=== PATIENT | female | born 1990 | race Caucasian/White ===

== ENCOUNTER 2017-12-26 08:12 | Emergency (ER) | payer MEDICAID, SELFPAY ==
[2017-12-26 08:13] VITALS: BP 177/130; PULSE 91; RESP 22; TEMP 36.7; O2SAT 98; BMI 61.2
--- NOTE | 2017-12-26 08:28 | CT_ITS ---
STUDY: CT ABDOMEN AND PELVIS WITH CONTRAST REASON FOR EXAM: Female, 27 years old. 2 week history of left sided abdominal pain. The patient has a history of celiac disease. RADIATION DOSAGE (If Supplied By Facility): CTDIvol = ( 58.67 ) mGy, DLP = ( 2090.23 ) mGycm TECHNIQUE: Transaxial images were obtained from the dome of the diaphragm to the symphysis pubis with oral contrast. 100mL ml of Isovue 300 contrast was administered. Sagittal and coronal images were reconstructed. Individualized dose optimization techniques were used for this CT. COMPARISON: Comparison is made with a prior study dated November 06, 2017. FINDINGS: The visualized lung bases are unremarkable. The visualized portions of the heart are within normal limits. There is decreased attenuation of the liver consistent with steatosis. Mild hepatomegaly. Stable coarse calcifications in the midportion of the right lobe of the liver suggestive of a granulomatous calcification. Normal gallbladder and extrahepatic biliary system. Normal spleen. Normal pancreas. Normal bilateral adrenal glands. Normal right kidney. Normal left kidney. Normal visualized stomach. Normal small intestine. There are scattered colonic diverticula consistent with diverticulosis. The appendix is visualized and appears normal. Normal abdominal aorta. Normal inferior vena cava. Normal retroperitoneum. Normal urinary bladder. Normal abdominal wall. There is loss of the normal lumbar lordosis. CT/Abdomen/Pelvis WITH Contrast IMPRESSION: Hepatomegaly and fatty infiltration of the liver. Stable calcification in the right lobe of the liver. Electronically Signed: Bj Arroyo MD at 10:56 EST Tel [phone], Service support ,
--- NOTE | 2017-12-26 08:30 | ED.VISSUMM ---
- ER Visit Summary Date of Service: 12/26/17 Chief Complaint: Abdominal pain History of Present Illness: The patient is a 27 F presenting with abdominal pain. She states that she has been having left upper quadrant pain ever since having stomach flu. She now denies any nausea vomiting diarrhea or constipation. She has mild dysuria. She states yesterday she was at the store and bent over and started having pain in the suprapubic region. She denies any vaginal bleeding or discharge. Denies possibility of . She has history of celiac disease. Physical Examination: Vitals are stable. Patient is afebrile. Alert no acute distress. HEENT exam is unremarkable. Neck is supple. Lungs are clear and equal bilaterally. Heart is regular rate and rhythm. Abdomen is soft obese, left upper quadrant tenderness, suprapubic tenderness, no rebound or guarding. Extremities are unremarkable. Skin is warm and dry. No focal neurologic deficit. Remainder of exam is unremarkable. Emergency Department Course and Treatment: She is given IV fluids, Toradol. CBC shows white count 12.4. Chemistries show glucose 121. Liver enzymes are normal except for alk phos 121. Lipase is normal. Urinalysis unremarkable. HCG negative. CT abdomen pelvis shows fatty liver, stable calcification in the liver. She is resting comfortably on re-evaluation. Patient is advised to follow-up with Dr. Parker reception for no doc. Advised return to ED for any worsening complaints. Disposition: Discharge home Impression: Abdominal pain This note was generated with [employer] dictation software. It may contain incorrect words, spelling, and punctuation that were not noted in review of the chart prior to signing ED Disposition - Plan for ED Patient: Chief Complaint: Abd Pain Referrals: Care Physician,No Primary [Primary Care Provider] -
--- NOTE | 2017-12-26 08:33 | ED.DCSUM_ITS ---
- ER Visit Summary Date of Service: 12/26/17 Chief Complaint: Abdominal pain History of Present Illness: The patient is a 27 F presenting with abdominal pain. She states that she has been having left upper quadrant pain ever since having stomach flu. She now denies any nausea vomiting diarrhea or constipation. She has mild dysuria. She states yesterday she was at the store and bent over and started having pain in the suprapubic region. She denies any vaginal bleeding or discharge. Denies possibility of . She has history of celiac disease. Physical Examination: Vitals are stable. Patient is afebrile. Alert no acute distress. HEENT exam is unremarkable. Neck is supple. Lungs are clear and equal bilaterally. Heart is regular rate and rhythm. Abdomen is soft obese, left upper quadrant tenderness, suprapubic tenderness, no rebound or guarding. Extremities are unremarkable. Skin is warm and dry. No focal neurologic deficit. Remainder of exam is unremarkable. Emergency Department Course and Treatment: She is given IV fluids, Toradol. CBC shows white count 12.4. Chemistries show glucose 121. Liver enzymes are normal except for alk phos 121. Lipase is normal. Urinalysis unremarkable. HCG negative. CT abdomen pelvis shows fatty liver, stable calcification in the liver. She is resting comfortably on re-evaluation. Patient is advised to follow-up with Dr. Parker mooner for no doc. Advised return to ED for any worsening complaints. Disposition: Discharge home Impression: Abdominal pain This note was generated with [employer] dictation software. It may contain incorrect words, spelling, and punctuation that were not noted in review of the chart prior to signing ED Disposition - Plan for ED Patient: Chief Complaint: Abd Pain Referrals: Care Physician,No Primary [Primary Care Provider] -
[2017-12-26] MEDS: 0.9% Normal Saline 1,000 ML 1000 ML IV (08:57)
[2017-12-26] MEDS: Ketorolac 30 MG/ML Syringe IV (08:58)
[2017-12-26 09:08] LABS: Absolute Lymphocyte Count 2.15 X10^3/ul (0.83-4.51); Absolute Neutrophil Count 9.2 X10^3/uL (2.0-7.7); Basophil# 0.02 X10^3/uL; Basophil% 0.2 % (0-1); Eosinophil# 0.31 X10^3/uL; Eosinophils% 2.5 % (0-5); Hematocrit 40.3 % (37-47); Lymphocyte # 2.15 X10^3/ul (4.0); Lymphocyte % 17.3 % (19-41); Mean Corp Hgb Conc 32.3 g/gl (32-36); Mean Corpuscular Hgb 25.7 pg (27.0-32.0); Mean Corpuscular Volume 79.6 fL (81-99); Mean Platelet Vol. 10.3 fl (6.2-12.0); Monocyte# 0.71 X10^3/uL; Monocyte% 5.7 % (0-10); Neutrophil # 9.21 X10^3/uL (2.7-7.7); Platelet Count 353 K/mm3 (150-450); RBC Distribution Width CV 15.6 % (11.6-14.6); RBC Distribution Width SD 44.5 fl (35.1-43.9); Red Blood Count 5.06 M/mm3 (4.2-5.4); White Blood Count 12.4 K/mm3 (4.4-11.0)
[2017-12-26 09:13] LABS: ALB/GLOB Ratio 0.7 RATIO (0.9-2.4); AST(SGOT) 9 U/L (15-37); Alanine Aminotransfer ALT/SGPT 20 U/L (13-56); Albumin, Serum 3.2 g/dL (3.2-5.0); Alkaline Phosphatase 121 U/L (45-117); Anion Gap 7 (5-15); BUN 12 mg/dL (7-18); BUN/Creat Ratio 17.1 RATIO (10-20); Calcium,Total 8.8 mg/dL (8.5-10.1); Chloride 106 mmol/L (98-107); EST Glomerular Filtration Rate 107 mL/min (>60); Est Glom Filt Rate - Afr Amer 130 mL/min (>60); Globulin 4.4 g/dL (2.2-4.2); Glucose 121 mg/dL (74-106); Lipase 73 U/L (73-393); Potassium 4.1 mmol/L (3.5-5.1); Protein, Total 7.6 g/dL (6.4-8.2); Sodium Level 140 mmol/L (136-145)
[2017-12-26 09:18] LABS: POSITIVE COUNT NO; POSITIVE DIFFERENTIAL NO; POSITIVE MORPHOLOGY NO
[2017-12-26 09:20] LABS: Pregnancy, Serum, hCG Quali. NEGATIVE Negative (0-9 Nonpreg)
[2017-12-26 10:07] LABS: Mucous, Urine 0 SEEN /hpf (<or=2+); Red Blood Cells-Urine 0 SEEN /hpf (0-5)
[2017-12-26 10:23] LABS: Color, Urine Yellow (Yellow); Glucose, Dipstick Normal (Normal); Ketone-Dipstick Negative (Negative); Leukocyte Esterase-Dipstick 100 /ul (Negative); Nitrite-Dipstick Negative (Negative); Occult Blood-Urine Negative /ul (Negative); Protein-Dipstick Negative (Negative); Urine Bilirubin Dipstick Negative (Negative); Urine Clarity Clear (Clear); Urine Urobilinogen Normal (Normal)
[2017-12-26 10:43] LABS: Bacteria RARE /hpf (None Seen); Squamous Epithelial Cells - UA 0-5 SEEN /hpf (5-10); White Blood Cells 0-5 SEEN /hpf (0-5)
[2017-12-26 11:08] VITALS: BP 147/111
--- NOTE | 2017-12-26 11:35 | ED.DEP ---
ED Disposition - Plan for ED Patient: Chief Complaint: Abd Pain Instructions: ED Abdominal Pain Unkn Cause Prescriptions: Naproxen [Naprosyn] 500 mg PO BID PRN #20 tablet Referrals: Care Physician,No Primary [Primary Care Provider] - Carey Parker DO [STAFF PHYSICIAN] -
[2017-12-26 11:58] VITALS: BP 158/107; PULSE 83; RESP 16; O2SAT 98
== END 2017-12-26 12:04 | disposition home or self-care (01) ==
PROVIDERS: Emergency Provider Emergency Medicine
DX: R10.12 Left upper quadrant pain (principal); R30.0 Dysuria; I10 Essential (primary) hypertension; K90.0 Celiac disease; K76.0 Fatty (change of) liver, not elsewhere classified; J45.909 Unspecified asthma, uncomplicated; Z79.899 Other long term (current) drug therapy
CPT/HCPCS: 74177; 80053; 81001; 83690; 84703; 85025; 96361; 96374; 99283; J7030; Q9967; A4216

== ENCOUNTER 2018-01-16 06:30 | Emergency (ER) | payer SELFPAY ==
[2018-01-16 06:33] VITALS: BP 165/123; PULSE 105; RESP 18; TEMP 36.8; O2SAT 97; BMI 62.8
--- NOTE | 2018-01-16 06:45 | ED.VISSUMM ---
- ER Visit Summary Date of Service: 01/16/18 Chief Complaint: Atraumatic right flank pain History of Present Illness: The patient is a 27 F complaint of atraumatic right flank pain. She states this is been going on since Tuesday. Worse with movement. She denies any hematuria or dysuria. Denies any fever. Denies any change with food. She denies any nausea, vomiting, diarrhea or constipation. The pain increases with movement about her trunk. She had a recent ER visit 3-4 weeks ago in which she had normal labs and a CT of the abdomen which showed a stable chronic right liver lobe calcification but no other acute processes. No gallbladder disease or gallstones. Labs are otherwise unremarkable and UA was unremarkable. Physical Examination: Vital signs are stable and afebrile except her initial blood pressure is 165/123 that will be reevaluated. She does not look septic or toxic. She is in no acute distress. She is resting in bed comfortably. HEENT exam unremarkable atraumatic. Neck nontender no lymphadenopathy. Lungs clear to auscultation bilaterally. Heart regular rhythm no murmur. Abdomen is morbidly obese but soft. Nontender nondistended no giving or masses normal bowel sounds no peritoneal signs. She is moving all 4 extremities. Neurovascular intact. Calves are nontender without edema or cords. Back exam the spine is nontender she is reproducible tenderness in the right posterior lower ribs and also in the right anterior lower ribs. There is no ecchymosis or bruising. There is no subcu air or crepitance. There is no gross bony deformities. Neurologic exam is normal. No focal motor deficits. She is awake alert answering questions. Test Results: Shows some blood but otherwise unremarkable. No signs of infection. Her history and exam is not consistent with a kidney stone. She did have a recent CT abdomen study did not show any signs of kidney stones. Emergency Department Course and Treatment: Patient was reproducible lower rib cage pain. She has no other symptoms. She had a recent CT and labs that were negative on 12/26/2017. At that time she had a negative CBC, BMP and some liver enzymes. Treatment Plan: Repeat exam patient is doing well. The tenderness is reproducible over her right lower rib cage and right lateral and posterior rib cage. Consistent with a myofascial strain. It is worse with movement. It does not change with food. She will be discharged to home. She requested a work excuse. Pain will be treated with Tylenol Motrin. Return if worse. She referred to her primary care physician. Disposition: Discharge Impression: Right flank pain secondary to musculoskeletal etiology This note was generated with [employer] dictation software. It may contain incorrect words, spelling, and punctuation that were not noted in review of the chart prior to signing ED Disposition - Plan for ED Patient: Chief Complaint: Flank Pain Referrals: Care Physician,No Primary [Primary Care Provider] -
[2018-01-16 06:49] LABS: Bacteria 0 SEEN /hpf (None Seen); Mucous, Urine 0 SEEN /hpf (<or=2+); Red Blood Cells-Urine 0 SEEN /hpf (0-5); White Blood Cells 0 SEEN /hpf (0-5)
[2018-01-16 06:53] LABS: Color, Urine Yellow (Yellow); Glucose, Dipstick Normal (Normal); Ketone-Dipstick Negative (Negative); Leukocyte Esterase-Dipstick 25 /ul (Negative); Nitrite-Dipstick Negative (Negative); Occult Blood-Urine 50 /ul (Negative); Protein-Dipstick Negative (Negative); Urine Bilirubin Dipstick Negative (Negative); Urine Clarity Sl. Cloudy (Clear); Urine Urobilinogen Normal (Normal)
[2018-01-16 06:59] LABS: Squamous Epithelial Cells - UA 50-100 SEEN /hpf (5-10)
--- NOTE | 2018-01-16 07:15 | ED.DEP ---
ED Disposition - Plan for ED Patient: Disposition: Home or Assisted Living Chief Complaint: Flank Pain Instructions: ED Flank Pain Uncertain Cause Referrals: Tyson Adan MD [STAFF PHYSICIAN] - 1 Week if not improving Additional Instructions: Your urine showed no signs of infection. Your recent CAT scan and labs from 3 weeks ago were unremarkable. Seems to be consistent with musculoskeletal rib cage and muscle pain. Hot shower, warm bath and massage. Tylenol Motrin for pain. If this is not improving follow-up the primary care physician that I referred you to. Return to ER feeling worse such as worsening pain, fever or vomiting.
== END 2018-01-16 07:24 | disposition home or self-care (01) ==
PROVIDERS: Emergency Provider Emergency Medicine
DX: R10.9 Unspecified abdominal pain (principal); I10 Essential (primary) hypertension; K90.0 Celiac disease; K76.89 Other specified diseases of liver; J45.909 Unspecified asthma, uncomplicated; Z79.899 Other long term (current) drug therapy
CPT/HCPCS: 81001; 99282

== ENCOUNTER 2018-03-15 05:54 | Emergency (ER) | payer SELFPAY ==
[2018-03-15 05:54] VITALS: BP 166/114; PULSE 104; RESP 19; TEMP 36.4; O2SAT 96; BMI 55.7
[2018-03-15] MEDS: Doxycycline 100 MG CAPSULE PO (06:16)
[2018-03-15 06:17] VITALS: BP 181/88; PULSE 100; RESP 19; O2SAT 97
--- NOTE | 2018-03-15 06:17 | ED.DCSUM_ITS ---
- ER Visit Summary Date of Service: 03/15/18 Chief Complaint: [Spider bite left thigh] History of Present Illness: The patient is a 27 F [who presents the emergency department with pain redness and warmth on her left thigh for the past 2 days. Yesterday he had a pustule. Today it is slightly more red and painful. She noticed a spider crawling down her leg 2 days ago. No fever or chills she has a history of hypertension but is noncompliant with her medication. She denies the possibility of . She does not know when her last tetanus was] Physical Examination: [] Blood pressure 166/114 heart rate 104 respirations 19 WN WD NAD PERRL EOMI MMM NECK supple and nontender, no masses RRR no murmur rub or gallop, no peripheral edema, symmetric radial pulses CTAB no respiratory distress ABDOMEN is soft and nontender, normal bowel sounds, no distension, no rebound or guarding SKIN 4 cm area around erythema and tenderness and warmth, 1 cm firm nodule with no fluctuance left anterior thigh Alert and Oriented x3, CN II-XII in tact, no motor or sensory deficits, gait normal No lymphadenopathy Test Results: [] Emergency Department Course and Treatment: [Treatment for her hypertension was discussed she will be given a referral to primary care physician. Tetanus was updated. Patient will be given doxycycline and Bactroban. She was given precautions for which to return] Treatment Plan: [] Disposition: [Is charge] Impression: [boil] This note was generated with [employer] dictation software. It may contain incorrect words, spelling, and punctuation that were not noted in review of the chart prior to signing ED Disposition - Plan for ED Patient: Chief Complaint: Bite Referrals: Care Physician,No Primary [Primary Care Provider] -
--- NOTE | 2018-03-15 06:18 | ED.DEP ---
ED Disposition - Plan for ED Patient: Chief Complaint: Bite Instructions: ED Staph Infec Abx Tx Only, ED Hypertension Conf Out Of Control Prescriptions: Doxycycline Hyclate 100 mg PO BID #14 tablet Mupirocin [Bactroban] 1 applic TOPICAL TID 7 Days tube Referrals: Mal Becker DO [NON CLINICAL AFFILIATE] - 3-5 Days
[2018-03-15] MEDS: Diphth,Pertuss(Acell),Tet Vac 0.5 ML Vial IM (06:22)
== END 2018-03-15 06:53 | disposition home or self-care (01) ==
PROVIDERS: Emergency Provider Emergency Medicine
DX: L02.426 Furuncle of left lower limb (principal); Z23 Encounter for immunization; I10 Essential (primary) hypertension; Z91.14 Patient's other noncompliance with medication regimen; J45.909 Unspecified asthma, uncomplicated; E66.9 Obesity, unspecified; Z79.899 Other long term (current) drug therapy
CPT/HCPCS: 90715; 99283

== ENCOUNTER 2018-04-13 05:06 | Emergency (ER) | payer SELFPAY ==
--- NOTE | 2018-04-13 05:06 | DT_ITS ---
This patient was seen during an EMR downtime April 10, 2018 - April 17, 2018. This patient may have a combination of paper and electronic documentation or all paper documentation. All documentation is viewable within the e-chart portion of [facility] for each patient visit.
--- NOTE | 2018-04-13 05:35 | CT_ITS ---
STUDY: CT ABDOMEN AND PELVIS WITHOUT CONTRAST REASON FOR EXAM: Female, 27 years old. Nausea, vomiting, diarrhea and right-sided abdominal pain. RADIATION DOSAGE (If Supplied By Facility): CTDIvol = ( 34.06 ) mGy, DLP = ( 1957.43 ) mGycm TECHNIQUE: Transaxial images were obtained from the dome of the diaphragm to the symphysis pubis without oral contrast, and without intravenous contrast. Sagittal and coronal images were reconstructed. Individualized dose optimization techniques were used for this CT. COMPARISON: None. FINDINGS: The visualized lung bases are unremarkable. The visualized portions of the heart are within normal limits. There is hepatomegaly with diffuse hepatic enlargement. Maximum dimension of the liver is approximately 25 cm. Benign-appearing calcifications are present on the right lobe of liver. Normal gallbladder and extrahepatic biliary system. Normal spleen. Normal pancreas. Normal bilateral adrenal glands. Normal right kidney. Normal left kidney. Normal visualized stomach. There is no evidence for dilated bowel, ascites or pneumoperitoneum. Small bowel has a grossly normal appearance. Stool is visible throughout the colon with scattered colonic diverticula. The appendix is visualized and appears normal. Normal abdominal aorta. Normal inferior vena cava. Normal retroperitoneum. Normal urinary bladder. There is atrophy of the uterus. There is a small umbilical hernia containing fat. Normal osseous structures. CT/Abdomen/Pelvis without Cont IMPRESSION: 1. No CT evidence of acute intra-abdominal disease. 2. Hepatomegaly. Electronically Signed: Gardenia Low MD at 5:48 EDT , Service support ,
[2018-04-15 11:59] LABS: Bacteria 0 SEEN /hpf (None Seen); Color, Urine Yellow (Yellow); Glucose, Dipstick NEGATIVE (Normal); Ketone-Dipstick Negative (Negative); Leukocyte Esterase-Dipstick 25 /ul (Negative); Mucous, Urine 0 SEEN /hpf (<or=2+); Nitrite-Dipstick Negative (Negative); Occult Blood-Urine Negative /ul (Negative); Protein-Dipstick Negative (Negative); Red Blood Cells-Urine 0 SEEN /hpf (0-5); Squamous Epithelial Cells - UA 10-25 SEEN /hpf (5-10); Urine Bilirubin Dipstick Negative (Negative); Urine Clarity Clear (Clear); Urine Urobilinogen Normal (Normal); White Blood Cells 0-5 SEEN /hpf (0-5)
[2018-04-15 14:33] LABS: Hemoglobin 13.1 g/dl (12.0-15.0); Red Blood Count 5.04 M/mm3 (4.2-5.4)
[2018-04-15 14:34] LABS: Absolute Lymphocyte Count 2.54 X10^3/ul (0.83-4.51); Absolute Neutrophil Count 7.9 X10^3/uL (2.0-7.7); Basophil# 0.03 X10^3/uL; Basophil% 0.3 % (0-1); Eosinophil# 0.33 X10^3/uL; Eosinophils% 2.8 % (0-5); Hematocrit 40.9 % (37-47); Lymphocyte # 2.54 X10^3/ul (4.0); Lymphocyte % 21.2 % (19-41); Mean Corpuscular Volume 81.2 fL (81-99); Mean Platelet Vol. 9.9 fl (6.2-12.0); Monocyte# 1.15 X10^3/uL; Monocyte% 9.6 % (0-10); Neutrophil # 7.89 X10^3/uL (2.7-7.7); Neutrophil % 65.7 % (47-70); POSITIVE COUNT NO; POSITIVE DIFFERENTIAL NO; POSITIVE MORPHOLOGY NO; Platelet Count 345 K/mm3 (150-450); RBC Distribution Width CV 14.9 % (11.6-14.6); RBC Distribution Width SD 43.4 fl (35.1-43.9)
[2018-04-16 16:55] LABS: BUN 14 mg/dL (7-18); Glucose 110 mg/dL (74-106)
[2018-04-16 16:56] LABS: AST(SGOT) 12 U/L (15-37); Alanine Aminotransfer ALT/SGPT 22 U/L (13-56); Albumin, Serum 3.4 g/dL (3.2-5.0); Alkaline Phosphatase 120 U/L (45-117); Anion Gap 8 (5-15); BUN/Creat Ratio 18.7 RATIO (10-20); Bilirubin, Direct 0.09 mg/dL (0.00-0.30); Calcium,Total 8.9 mg/dL (8.5-10.1); Chloride 107 mmol/L (98-107); Creatinine, Serum 0.75 mg/dL (0.55-1.02); EST Glomerular Filtration Rate 99 mL/min (>60); Est Glom Filt Rate - Afr Amer 120 mL/min (>60); Globulin 3.9 g/dL (2.2-4.2); Lipase 87 U/L (73-393); Potassium 4.1 mmol/L (3.5-5.1); Protein, Total 7.3 g/dL (6.4-8.2); Sodium Level 141 mmol/L (136-145)
[2018-04-16 16:57] LABS: Pregnancy, Serum, hCG Quali. NEGATIVE Negative (0-9 Nonpreg)
== END 2018-04-13 07:30 | disposition home or self-care (01) ==
LOC: ED 15:50
PROVIDERS: Emergency Provider Emergency Medicine
DX: R10.31 Right lower quadrant pain (principal); R10.32 Left lower quadrant pain; R19.7 Diarrhea, unspecified; I10 Essential (primary) hypertension; Z79.899 Other long term (current) drug therapy
CPT/HCPCS: 36415; 74176; 80048; 80076; 81001; 83690; 84703; 85025; 96361; 96374; 96375; 99283; J7030; A4216; J2405

== ENCOUNTER 2018-05-22 16:20 | Emergency (ER) | payer SELFPAY ==
[2018-05-22 16:21] VITALS: BP 156/126; PULSE 115; RESP 22; TEMP 36.8; O2SAT 97; BMI 61.0
--- NOTE | 2018-05-22 17:46 | CT_ITS ---
STUDY: CT ABDOMEN AND PELVIS WITHOUT CONTRAST REASON FOR EXAM: Female, 27 years old. Pain for one week. Nausea. RADIATION DOSAGE (If Supplied By Facility): CTDIvol = ( 34.45 ) mGy, DLP = ( 2143.52 ) mGycm TECHNIQUE: Transaxial images were obtained from the dome of the diaphragm to the symphysis pubis without oral contrast, and without intravenous contrast. Sagittal and coronal images were reconstructed. Individualized dose optimization techniques were used for this CT. COMPARISON: April 13, 2018. FINDINGS: The visualized lung bases are unremarkable. The visualized portions of the heart are within normal limits. The liver is enlarged. Again seen is irregular calcifications in the right liver.. Normal gallbladder and extrahepatic biliary system. Normal spleen. Normal pancreas. Normal bilateral adrenal glands. Normal right kidney. Normal left kidney. Normal bilateral ureters. The stomach is distended with debris and fluid. There is no wall thickening or evidence for obstruction. Normal small intestine. Normal colon. The appendix is visualized and appears normal. Normal abdominal aorta. Normal inferior vena cava. Normal retroperitoneum. Normal urinary bladder. Uterus is small in size but normal in position. There is no adnexal mass or lymphadenopathy. No free air or free fluid is seen within the peritoneal cavity. Small umbilical hernia of omental fat. The abdominal wall is otherwise unremarkable. Normal osseous structures. CT/Abdomen/Pelvis without Cont IMPRESSION: 1. Stable hepatomegaly with right sided calcifications. There is no interval change. 2. No evidence of acute intra-abdominal or pelvic abnormality or interval change. Electronically Signed: Jose Gutierrez DO at 19:40 EDT Tel [phone], Service support ,
[2018-05-22 18:12] VITALS: BP 179/123; PULSE 94; RESP 17; O2SAT 99
[2018-05-22] MEDS: Morphine 4 MG/ML Syringe IV (18:24)
[2018-05-22] MEDS: Ondansetron 4 MG/2 ML Vial IV (18:24)
[2018-05-22 18:34] LABS: Bacteria 0 SEEN /hpf (None Seen); Mucous, Urine 0 SEEN /hpf (<or=2+); Red Blood Cells-Urine 0 SEEN /hpf (0-5); White Blood Cells 0 SEEN /hpf (0-5)
[2018-05-22 18:44] LABS: Color, Urine Yellow (Yellow); Glucose, Dipstick Normal (Normal); Ketone-Dipstick Negative (Negative); Leukocyte Esterase-Dipstick Negative /ul (Negative); Nitrite-Dipstick Negative (Negative); Occult Blood-Urine Negative /ul (Negative); Protein-Dipstick Negative (Negative); Specific Gravity, Urine 1.015 (1.002-1.030); Urine Bilirubin Dipstick Negative (Negative); Urine Clarity Sl. Cloudy (Clear); Urine Urobilinogen Normal (Normal); Urine pH 6.5 (5.0 - 8.0)
[2018-05-22 18:45] LABS: Absolute Lymphocyte Count 1.98 X10^3/ul (0.83-4.51); Absolute Neutrophil Count 9.3 X10^3/uL (2.0-7.7); Basophil# 0.03 X10^3/uL; Basophil% 0.2 % (0-1); Eosinophils% 3.2 % (0-5); Hemoglobin 13.4 g/dl (12.0-15.0); Lymphocyte # 1.98 X10^3/ul (4.0); Lymphocyte % 15.7 % (19-41); Mean Corp Hgb Conc 32.7 g/gl (32-36); Mean Corpuscular Volume 79.5 fL (81-99); Mean Platelet Vol. 9.6 fl (6.2-12.0); Monocyte# 0.92 X10^3/uL; Monocyte% 7.3 % (0-10); Neutrophil # 9.26 X10^3/uL (2.7-7.7); Neutrophil % 73.2 % (47-70); Platelet Count 321 K/mm3 (150-450); RBC Distribution Width CV 14.7 % (11.6-14.6); Red Blood Count 5.16 M/mm3 (4.2-5.4); White Blood Count 12.6 K/mm3 (4.4-11.0)
[2018-05-22 18:50] LABS: POSITIVE COUNT NO; POSITIVE DIFFERENTIAL NO; POSITIVE MORPHOLOGY NO
[2018-05-22 18:56] LABS: AST(SGOT) 15 U/L (15-37); Alanine Aminotransfer ALT/SGPT 28 U/L (13-56); Albumin, Serum 3.4 g/dL (3.2-5.0); Alkaline Phosphatase 128 U/L (45-117); Anion Gap 8 (5-15); BUN 8 mg/dL (7-18); BUN/Creat Ratio 9.5 RATIO (10-20); Bilirubin, Direct 0.08 mg/dL (0.00-0.30); Calcium,Total 8.7 mg/dL (8.5-10.1); Chloride 104 mmol/L (98-107); Creatinine, Serum 0.84 mg/dL (0.55-1.02); EST Glomerular Filtration Rate 87 mL/min (>60); Est Glom Filt Rate - Afr Amer 105 mL/min (>60); Estimated Creatinine Clearance 113.43 ml/min; Globulin 4.4 g/dL (2.2-4.2); Glucose 92 mg/dL (74-106); Lipase 79 U/L (73-393); Potassium 3.7 mmol/L (3.5-5.1); Protein, Total 7.8 g/dL (6.4-8.2); Sodium Level 140 mmol/L (136-145)
[2018-05-22 19:13] LABS: Squamous Epithelial Cells - UA 0-5 SEEN /hpf (5-10)
[2018-05-22 19:17] LABS: Pregnancy, Serum, hCG Quali. NEGATIVE Negative (0-9 Nonpreg)
--- NOTE | 2018-05-22 19:51 | ED.DCSUM_ITS ---
- ER Visit Summary Date of Service: 05/22/18 Chief Complaint: Abdominal pain History of Present Illness: The patient is a 27 F who has had abdominal pain for the past week. She describes sharp pains diffusely across her abdomen. Worse in the bilateral upper quadrants. She has had nausea with vomiting. She is mostly nauseous today. No diarrhea or constipation. She does admit to some dysuria. No fevers. No history of abdominal surgeries in the past. She did not take anything for this at home. Physical Examination: Vital signs reviewed. HEENT exam unremarkable. Heart is regular rate and rhythm without murmurs. Lungs are clear to auscultation. Abdomen is soft with diffuse tenderness to palpation. No guarding or rebound tenderness extremities reveal no edema. Skin exam normal. Neurologic exam normal. Test Results: Labs are normal except for white blood cell count was 12.6. Urinalysis negative. HCG negative. CAT scan reveals no acute findings Emergency Department Course and Treatment: Patient was given morphine and Zofran. She had no relief with this. I will give her IV Toradol. She will be sent home with Bentyl and Phenergan. She will follow-up with her PCP Treatment Plan: [] Disposition: Discharge Impression: Abdominal pain This note was generated with [employer] dictation software. It may contain incorrect words, spelling, and punctuation that were not noted in review of the chart prior to signing ED Disposition - Plan for ED Patient: Chief Complaint: Abd Pain Referrals: Care Physician,No Primary [Primary Care Provider] -
--- NOTE | 2018-05-22 19:51 | ED.DEP ---
ED Disposition - Plan for ED Patient: Disposition: Home or Assisted Living Chief Complaint: Abd Pain Instructions: ED Abdominal Pain Unkn Cause Prescriptions: proMETHazine tablet [Phenergan] 25 mg PO Q6H PRN PRN #10 tab PRN Reason: Nausea Dicyclomine HCl [Bentyl] 20 mg PO TIDAC #20 cap Referrals: Care Physician,No Primary [Primary Care Provider] -
[2018-05-22] MEDS: Ketorolac 30 MG/ML Syringe IV (19:57)
[2018-05-22 19:58] VITALS: BP 161/116; PULSE 94; RESP 14; O2SAT 97
== END 2018-05-22 21:02 | disposition home or self-care (01) ==
PROVIDERS: Emergency Provider Emergency Medicine
DX: R10.9 Unspecified abdominal pain (principal); R30.0 Dysuria; R11.2 Nausea with vomiting, unspecified; I10 Essential (primary) hypertension; J45.909 Unspecified asthma, uncomplicated; E66.9 Obesity, unspecified
CPT/HCPCS: 74176; 80048; 80076; 81001; 83690; 84703; 85025; 96374; 96375; 99283; A4216; J2405

== ENCOUNTER 2018-05-24 05:05 | Emergency (ER) | payer SELFPAY ==
[2018-05-24 05:05] VITALS: BP 139/94
[2018-05-24 05:06] VITALS: BP 147/125; PULSE 101; RESP 22; TEMP 36.7; O2SAT 95; BMI 60.8
[2018-05-24 05:29] LABS: Absolute Neutrophil Count 7.7 X10^3/uL (2.0-7.7); Basophil# 0.02 X10^3/uL; Basophil% 0.2 % (0-1); Eosinophil# 0.56 X10^3/uL; Eosinophils% 4.7 % (0-5); Hematocrit 39.3 % (37-47); Hemoglobin 12.9 g/dl (12.0-15.0); Lymphocyte % 19.2 % (19-41); Mean Corp Hgb Conc 32.8 g/gl (32-36); Mean Corpuscular Hgb 26.1 pg (27.0-32.0); Mean Corpuscular Volume 79.4 fL (81-99); Mean Platelet Vol. 9.9 fl (6.2-12.0); Monocyte% 10.9 % (0-10); Neutrophil # 7.71 X10^3/uL (2.7-7.7); Neutrophil % 64.5 % (47-70); Platelet Count 301 K/mm3 (150-450); RBC Distribution Width CV 14.9 % (11.6-14.6); RBC Distribution Width SD 42.4 fl (35.1-43.9); Red Blood Count 4.95 M/mm3 (4.2-5.4)
[2018-05-24 05:30] LABS: POSITIVE COUNT NO; POSITIVE DIFFERENTIAL NO; POSITIVE MORPHOLOGY NO
[2018-05-24] MEDS: Morphine 4 MG/ML Syringe IV (05:32)
[2018-05-24] MEDS: 0.9% Normal Saline 1,000 ML 1000 ML IV (05:32)
[2018-05-24] MEDS: Ondansetron 4 MG/2 ML Vial IV (05:32)
[2018-05-24 05:45] LABS: ALB/GLOB Ratio 0.7 RATIO (0.9-2.4); AST(SGOT) 27 U/L (15-37); Alanine Aminotransfer ALT/SGPT 27 U/L (13-56); Alkaline Phosphatase 106 U/L (45-117); Anion Gap 8 (5-15); BUN 10 mg/dL (7-18); BUN/Creat Ratio 13.1 RATIO (10-20); Calcium,Total 8.6 mg/dL (8.5-10.1); Chloride 107 mmol/L (98-107); Creatinine, Serum 0.77 mg/dL (0.55-1.02); EST Glomerular Filtration Rate 96 mL/min (>60); Est Glom Filt Rate - Afr Amer 117 mL/min (>60); Estimated Creatinine Clearance 123.75 ml/min; Globulin 4.1 g/dL (2.2-4.2); Glucose 119 mg/dL (74-106); Lipase 67 U/L (73-393); Potassium 4.4 mmol/L (3.5-5.1); Protein, Total 7.1 g/dL (6.4-8.2); Sodium Level 142 mmol/L (136-145)
[2018-05-24 05:58] LABS: Pregnancy, Serum, hCG Quali. NEGATIVE Negative (0-9 Nonpreg)
--- NOTE | 2018-05-24 06:14 | US_ITS ---
STUDY: ABDOMINAL ULTRASOUND - RIGHT UPPER QUADRANT REASON FOR VISIT: Female, 27 years old. One and half week history of right-sided abdominal pain. TECHNIQUE: Ultrasound evaluation of the right upper quadrant was performed with real-time and static cabrales-scale imaging. TECHNICAL QUALITY: Adequate. COMPARISON: None. FINDINGS: Liver: The liver is enlarged and measures 21.4 cm. There is increased echogenicity consistent with fatty infiltration. The bile ducts are within normal limits. There is hepatic color flow. The direction of portal flow is hepatopetal. There is no demonstrated mass lesion. Gallbladder: Normal distended gallbladder. The gallbladder wall measures 2.6 mm. There is a negative sonographic Cloud's sign. There is no pericholecystic fluid. There are no gallstones. Common Bile Duct (C.B.D.): The common bile duct measures 4.8 mm. Pancreas: Normal size of the head, body and tail of the pancreas. There is increased echogenicity of the pancreas. There is no demonstrated pancreatic mass or cyst. Right Kidney: Normal size of the right kidney. The right kidney measures 11.6 cm x 5.8 cm x 5.6 cm. Normal renal cortex. The right cortex measures 1.5 cm. There is no demonstrated renal mass or cyst. There is no right hydronephrosis. US/Gallbladder IMPRESSION: Hepatomegaly and fatty infiltration of the liver. Electronically Signed: Bj Arroyo MD at 8:50 EDT Tel [phone], Service support ,
[2018-05-24 06:15] LABS: Bacteria 0 SEEN /hpf (None Seen); Mucous, Urine 0 SEEN /hpf (<or=2+); Red Blood Cells-Urine 0 SEEN /hpf (0-5)
[2018-05-24 06:36] LABS: Color, Urine Yellow (Yellow); Glucose, Dipstick Normal (Normal); Ketone-Dipstick Negative (Negative); Leukocyte Esterase-Dipstick 25 /ul (Negative); Nitrite-Dipstick Negative (Negative); Occult Blood-Urine Negative /ul (Negative); Protein-Dipstick 15 mg/dl (Negative); Urine Bilirubin Dipstick Negative (Negative); Urine Clarity Sl. Cloudy (Clear); Urine Urobilinogen Normal (Normal)
[2018-05-24 06:44] LABS: Squamous Epithelial Cells - UA 5-10 SEEN /hpf (5-10); White Blood Cells 0-5 SEEN /hpf (0-5)
--- NOTE | 2018-05-24 06:50 | ED.DCSUM_ITS ---
- ER Visit Summary Date of Service: 05/24/18 Chief Complaint: [Nominal pain] History of Present Illness: The patient is a 27 F [presents the emergency department with complaint of abdominal pain for about 8 days. Patient was seen in the emergency department 2 days ago for same complaint. Patient states that her pain is mostly right-sided. Patient states food seems to affect it. She denies any fever. Patient has had vomiting since yesterday about 3 or 4 episodes. Patient also had watery stools multiple times yesterday. Patient denies urinary symptoms other than some mild dysuria at times. She does describe urgency. Patient has implantable control and does not believe she is . Patient has not been on antibiotics recently. She has had no recent travel out of the country.] During her last visit she had blood work and a CT scan of the abdomen pelvis that was unremarkable. Physical Examination: [HEENT-PERRLA, EOMI. Cranial nerves II through XII grossly intact. TMs clear. Mucous membranes moist. No adenopathy. Cardiovascular-regular rate and rhythm without murmur or ectopy Lungs-clear to auscultation, chest wall stable without crepitus or subcu emphysema Abdomen-normoactive bowel sounds, soft. Patient morbidly obese. She has diffuse tenderness over the right lower quadrant right upper quadrant. There is guarding. There is no rebound rigidity, or perineal signs. Extremities-intact ?4, normal range of motion, normal pulses, atraumatic] Test Results: [CBC with differential showed an elevated white blood cell count of 12.0 and it is noted that patient chronically has an elevation in her white blood cell count. Hemoglobin was 12.9, hematocrit 39, platelets 301. Chemistries unremarkable. LFTs were normal. Lipase was 67. Urinalysis was normal. HCG was negative.] Ultrasound of the gallbladder ordered and pending Emergency Department Course and Treatment: [Patient was medicated with morphine and Zofran.] Treatment Plan: [Patient care turned over to morning physician awaiting ultrasound results and final disposition] Disposition: [Pending] Impression: [Abdominal pain] This note was generated with [employer] dictation software. It may contain incorrect words, spelling, and punctuation that were not noted in review of the chart prior to signing ED Disposition - Plan for ED Patient: Chief Complaint: Abd Pain Referrals: Care Physician,No Primary [Primary Care Provider] -
[2018-05-24 08:48] VITALS: BP 161/110; PULSE 89; RESP 18; O2SAT 98
--- NOTE | 2018-05-24 09:54 | DCINST.ED_ITS ---
ED Disposition - Plan for ED Patient: Chief Complaint: Abd Pain Instructions: ED Abdominal Pain Unkn Cause Prescriptions: Hydrocodone Bitart/Apap 5-325 [[place] 5MG-325MG] 1 tablet PO Q4H PRN PRN 2 Days # 10 tablet PRN Reason: Pain Ondansetron [Zofran Odt] 4 mg PO Q8H PRN PRN #10 tablet PRN Reason: Nausea Referrals: Romana Shanks [NON-STAFF] - 1-2 Days if not improving
--- NOTE | 2018-05-24 10:17 | CM.ED ---
Social Work Note Introduced self and role at [facility]. The pt reports that she lives with her significant other, of three years, who she identifies as her primary support. Denies access issues. Moved to [place] from [place] two years ago. Presently works for a [employer] agency, but has missed the last three days of work and is concerned about losing the work she has had. Pt does not have a PCP and does not have insurance. Educate to Medicaid, and the pt reports that she has applied in the past and did not qualify as she was over the income guideline. Pt is still over the guideline, but presented with Medicaid application in the event that she becomes unemployed after missing work for the past 3 days. Also educate to [facility] and the financial assistance program at [facility]. Other resources provided are [employer] and 2-1-1. No additional needs or concerns at this time, and pt thanks for education and resources. Made aware that SW is available if needed. Becka Lara, LATHE MACHINE OPERATOR, STAFF PHYSICAL THERAPY ASSISTANT
[2018-05-24 10:53] VITALS: BP 140/99; PULSE 80; RESP 18; O2SAT 98
== END 2018-05-24 10:54 | disposition home or self-care (01) ==
PROVIDERS: Emergency Provider Emergency Medicine
DX: R10.11 Right upper quadrant pain (principal); R10.31 Right lower quadrant pain; K82.8 Other specified diseases of gallbladder; R30.0 Dysuria; R11.2 Nausea with vomiting, unspecified; R19.7 Diarrhea, unspecified; R39.15 Urgency of urination; I10 Essential (primary) hypertension; J45.909 Unspecified asthma, uncomplicated; E66.01 Morbid (severe) obesity due to excess calories
CPT/HCPCS: 76705; 80053; 81001; 83690; 84703; 85025; 96374; 96375; 99284; J7030; A4216; J2405

== ENCOUNTER 2018-06-09 05:18 | Emergency (ER) | payer SELFPAY ==
[2018-06-09 05:19] VITALS: BP 194/122; PULSE 84; RESP 20; TEMP 36.4; O2SAT 100; BMI 63.5
--- NOTE | 2018-06-09 05:29 | EKG12_ITS ---
Test Reason : SOB Blood Pressure : / mmHG Vent. Rate : 077 BPM Atrial Rate : 077 BPM P-R Int : 144 ms QRS Dur : 094 ms QT Int : 402 ms P-R-T Axes : -06 013 008 degrees QTc Int : 454 ms Normal sinus rhythm Normal ECG Confirmed by CARLYN VARGAS, ERINN ([id number]), loan expeditor BLANCA QUIJANO ([id number]) on 06/12/2018 2:28:18 PM Referred By: MARIN Confirmed By:ERINN ALCOCER MD
--- NOTE | 2018-06-09 05:35 | RAD_ITS ---
STUDY: X-RAY CHEST REASON FOR EXAM: Female, 27 years old. Asthma, shortness of breath last few days. TECHNIQUE: PA and lateral views of the chest. COMPARISON: 11/06/2017. FINDINGS: There are areas of hyperinflation. There is no focal parenchymal abnormality. There is no demonstrated pleural abnormality. Normal size heart. Normal mediastinum and tarik. Normal visualized pulmonary arteries. Normal visualized aortic arch and descending thoracic aorta. Normal visualized thoracic spine. Normal visualized ribs, clavicles, and shoulders. There is no demonstrated abnormality of the visualized soft tissue structures of the upper abdomen. RAD/Chest PA and Lateral IMPRESSION: Areas of hyperinflation can be seen with asthma. No pulmonary edema, congestive heart failure or confluent pneumonia. Electronically Signed: Billie Henry MD at 6:42 EDT , Service support ,
[2018-06-09] MEDS: Ipratropium/Albuterol Sulfate 3 ML AMPUL.NEB INHALATION (05:48)
[2018-06-09 05:49] VITALS: PULSE 87; RESP 20
--- NOTE | 2018-06-09 06:02 | ED.DCSUM_ITS ---
- ER Visit Summary Date of Service: 06/09/18 Chief Complaint: [] States she is having asthma attack since yesterday gradual onset continuous wheezing. She has dry cough mostly but occasional mucus. She has no significant shortness of breath currently. She used 2 puffs of her significant other's inhaler with minimal relief yesterday. History of Present Illness: The patient is a 27 F [] see above Physical Examination: [] Vital signs reviewed General: Well-nourished well-developed Head: Normocephalic atraumatic Eyes: Pupils equal round and reactive to light extraocular movements intact ENT: TMs clear no hemotympanum no trauma Neck: Nontender full range of motion Cardiovascular: Regular rate rhythm no murmurs normal S1-S2 Respiratory: No distress. Mild end expiratory wheezes throughout all lung marrero chest nontender Abdomen: Soft nontender nondistended normal bowel sounds no masses Back: Nontender no CVA tenderness Extremities: Nontender active range of motion ?4 extremities no trauma Skin: Normal color no trauma Neuro alert oriented cranial nerves II through XII intact normal strength sensation reflexes Test Results: [] Emergency Department Course and Treatment: [] EKG and chest x-ray obtained showed no acute disease. Patient given a breathing treatment with good relief of symptoms. Given oral prednisone and prednisone burst for home. Will be prescribed an inhaler. At this time I feel she has asthma exacerbation. Treatment Plan: [] Disposition: [] Impression: [] Acute asthma exacerbation This note was generated with [employer] dictation software. It may contain incorrect words, spelling, and punctuation that were not noted in review of the chart prior to signing ED Disposition - Plan for ED Patient: Chief Complaint: Asthma Referrals: Care Physician,No Primary [Primary Care Provider] -
[2018-06-09] MEDS: predniSONE 20 MG Tablet 60 MG PO (06:34)
[2018-06-09 06:41] VITALS: RESP 18
== END 2018-06-09 06:41 | disposition home or self-care (01) ==
PROVIDERS: Emergency Provider Emergency Medicine
DX: J45.901 Unspecified asthma with (acute) exacerbation (principal); I10 Essential (primary) hypertension; K90.0 Celiac disease; E66.9 Obesity, unspecified; Z72.0 Tobacco use
CPT/HCPCS: 71046; 93005; 94640; 99283

== ENCOUNTER 2018-07-20 18:10 | Emergency (ER) | payer SELFPAY ==
[2018-07-20 18:10] VITALS: BP 140/86; PULSE 123; RESP 18; TEMP 36.4; O2SAT 99; BMI 47.3
--- NOTE | 2018-07-20 18:26 | EKG12_ITS ---
Test Reason : CP Blood Pressure : / mmHG Vent. Rate : 121 BPM Atrial Rate : 121 BPM P-R Int : 148 ms QRS Dur : 094 ms QT Int : 308 ms P-R-T Axes : 028 071 019 degrees QTc Int : 437 ms Sinus tachycardia Otherwise normal ECG Confirmed by DANNIELLE VARGAS, CAROL ([id number]), video effects editor BLANCA QUIJANO ([id number]) on 07/24/2018 3:07:21 PM Referred By: TARIK VALENTIN Confirmed By:CAROL SPICER MD
--- NOTE | 2018-07-20 18:30 | RAD_ITS ---
STUDY: X-RAY CHEST REASON FOR EXAM: Female, 27 years old. Short of breath. TECHNIQUE: Frontal and lateral views of the chest. COMPARISON: 06/09/2018. FINDINGS: The lungs are clear and expanded. There is no demonstrated pleural abnormality. Normal size heart. Normal mediastinum and tarik. Normal visualized pulmonary arteries. Normal visualized aortic arch and descending thoracic aorta. Normal visualized thoracic spine. Normal visualized ribs, clavicles, and shoulders. There is no demonstrated abnormality of the visualized soft tissue structures of the upper abdomen. RAD/Chest PA and Lateral IMPRESSION: Normal x-ray examination of the chest. Electronically Signed: Dl Osorio MD at 18:51 EDT , Service support ,
[2018-07-20 18:46] LABS: Absolute Lymphocyte Count 3.35 X10^3/ul (0.83-4.51); Absolute Neutrophil Count 13.3 X10^3/uL (2.0-7.7); Basophil# 0.04 X10^3/uL; Basophil% 0.2 % (0-1); Differential Indicated SCAN CRITERIA MET; Eosinophils% 1.1 % (0-5); Lymphocyte # 3.35 X10^3/ul (4.0); Mean Corp Hgb Conc 31.7 g/gl (32-36); Mean Corpuscular Hgb 25.5 pg (27.0-32.0); Mean Corpuscular Volume 80.4 fL (81-99); Mean Platelet Vol. 9.5 fl (6.2-12.0); Monocyte# 1.65 X10^3/uL; Monocyte% 8.9 % (0-10); Neutrophil # 13.33 X10^3/uL (2.7-7.7); Neutrophil % 71.5 % (47-70); POSITIVE COUNT NO; POSITIVE DIFFERENTIAL YES; POSITIVE MORPHOLOGY NO; Platelet Count 332 K/mm3 (150-450); RBC Distribution Width SD 43.7 fl (35.1-43.9); White Blood Count 18.6 K/mm3 (4.4-11.0)
[2018-07-20 18:51] LABS: D-Dimer Quantitative (DVT/PE) < 0.27 FEU/ug/m (0.27-0.49)
[2018-07-20 18:53] LABS: Anion Gap 10 (5-15); BUN 13 mg/dL (7-18); BUN/Creat Ratio 13.3 RATIO (10-20); Calcium,Total 9.3 mg/dL (8.5-10.1); Chloride 104 mmol/L (98-107); Creatinine, Serum 0.98 mg/dL (0.55-1.02); EST Glomerular Filtration Rate 72 mL/min (>60); Est Glom Filt Rate - Afr Amer 88 mL/min (>60); Estimated Creatinine Clearance 94.07 ml/min; Glucose 125 mg/dL (74-106); Potassium 3.6 mmol/L (3.5-5.1); Sodium Level 139 mmol/L (136-145)
[2018-07-20 20:04] LABS: Differential Comment SCANNED
--- NOTE | 2018-07-20 22:05 | ED.VISSUMM ---
- ER Visit Summary Date of Service: 07/20/18 Chief Complaint: Lightheadedness, nausea and diaphoresis at 1130 and chest pain with palpitations and left upper extremity pain History of Present Illness: The patient is a 27 F who has history of panic disorder. Has been under stress. Was at work when she became lightheaded. The lightheadedness was preceded by nausea and diaphoresis. She then complained of chest discomfort, palpitations and left upper extremity discomfort. She was uncertain whether this represented a panic attack, which she has a history of. She does give history of recent URI type symptoms. She denies headache. She denies double vision, blurred vision or loss of vision. She does report nasal congestion without ear pain or sore throat. She presently denies any GI symptoms. She denies dysuria, frequency, urgency or hematuria. She denies history of PE or DVT. She does have a implanted device for control. Please read written note for complete detail Physical Examination: Vital signs noted and blood pressure elevated 140/86 heart rate 123 respiration 18 with a 99% saturation on room air. Temperature 97.6. BMI 47.3. Head is atraumatic normocephalic. Pupils are equal round reactive. Extraocular muscles are intact. TMs are pearly white with landmarks noted. Nares patent with no drainage. Posterior pharynx without erythema or exudate. Uvula is midline. There is no dysphonia or dysphasia. Trachea is midline. There is no stridor with auscultation of the neck. Heart is rapid and regular without murmur, gallop or rub. She is slightly tachypneic. No abnormal breath sounds noted. Abdomen soft nontender. Lower extremity exam reveals no asymmetry, discoloration, leg vein distention, palpable cords or tenderness on the distribution of deep venous system. Distal pulses upper and lower extremity normal. Neuro exam is nonfocal. Test Results: Two-view chest x-ray is limited secondary to body habitus. There is no abnormality of the heart with no cardiomegaly. Lung parenchyma is normal. Mediastinum is normal. No abnormality of any osseous structures. EKG was obtained and reveals a sinus tachycardia rate of 102 and decreased anterior force which may represent body habitus. White count is elevated 18.6 thousand with 72 segs no bands. Electrolyte panel is remarkable glucose 125. Troponin is less than 0.015 and d-dimer is less than 0.27. Emergency Department Course and Treatment: Patient's description of lightheadedness with nausea and diaphoresis consistent with vasovagal near syncope. The chest pain and palpitations may represent anxiety/panic attack. However with a BMI of 47.3 implanted control device with tachypnea and tachycardia need to entertain possibility of pulmonary embolus and reason for d-dimer. Treatment Plan: With an elevated white count respiratory symptoms will treat with antibiotics. This may represent a pneumonia and not visualized on the x-ray. With a normal EKG other than tachycardia and normal troponin and a heart score of 1 patient was discharged with no further workup needed. In light of her constipation symptoms this may represent an anxiety panic attack. Disposition: Discharged home with prescription for azithromycin Impression: 1. Respiratory infection with leukocytosis 2. Sinus tachycardia documented on EKG 3. Dyspnea of uncertain etiology 4. Vasovagal near syncopal episode This note was generated with [employer] dictation software. It may contain incorrect words, spelling, and punctuation that were not noted in review of the chart prior to signing ED Disposition - Plan for ED Patient: Disposition: Home or Assisted Living Chief Complaint: Chest Pain Instructions: ED Upper Resp Infec Abx Tx, ED Near Syncope Vasovagal Prescriptions: Azithromycin [Zithromax Z-Adrian] 250 mg PO UD #1 box Referrals: Care Physician,No Primary [Primary Care Provider] - Romana Shanks [NON-STAFF] - 3-5 Days if not improving
--- NOTE | 2018-07-20 22:11 | ED.DCSUM_ITS ---
- ER Visit Summary Date of Service: 07/20/18 Chief Complaint: Lightheadedness, nausea and diaphoresis at 1130 and chest pain with palpitations and left upper extremity pain History of Present Illness: The patient is a 27 F who has history of panic disorder. Has been under stress. Was at work when she became lightheaded. The lightheadedness was preceded by nausea and diaphoresis. She then complained of chest discomfort, palpitations and left upper extremity discomfort. She was uncertain whether this represented a panic attack, which she has a history of. She does give history of recent URI type symptoms. She denies headache. She denies double vision, blurred vision or loss of vision. She does report nasal congestion without ear pain or sore throat. She presently denies any GI symptoms. She denies dysuria, frequency, urgency or hematuria. She denies history of PE or DVT. She does have a implanted device for control. Please read written note for complete detail Physical Examination: Vital signs noted and blood pressure elevated 140/86 heart rate 123 respiration 18 with a 99% saturation on room air. Temperature 97.6. BMI 47.3. Head is atraumatic normocephalic. Pupils are equal round reactive. Extraocular muscles are intact. TMs are pearly white with landmarks noted. Nares patent with no drainage. Posterior pharynx without erythema or exudate. Uvula is midline. There is no dysphonia or dysphasia. Trachea is midline. There is no stridor with auscultation of the neck. Heart is rapid and regular without murmur, gallop or rub. She is slightly tachypneic. No abnormal breath sounds noted. Abdomen soft nontender. Lower extremity exam reveals no asymmetry, discoloration, leg vein distention, palpable cords or tenderness on the distribution of deep venous system. Distal pulses upper and lower extremity normal. Neuro exam is nonfocal. Test Results: Two-view chest x-ray is limited secondary to body habitus. There is no abnormality of the heart with no cardiomegaly. Lung parenchyma is normal. Mediastinum is normal. No abnormality of any osseous structures. EKG was obtained and reveals a sinus tachycardia rate of 102 and decreased anterior force which may represent body habitus. White count is elevated 18.6 thousand with 72 segs no bands. Electrolyte panel is remarkable glucose 125. Troponin is less than 0.015 and d-dimer is less than 0.27. Emergency Department Course and Treatment: Patient's description of lightheadedness with nausea and diaphoresis consistent with vasovagal near syncope. The chest pain and palpitations may represent anxiety/panic attack. However with a BMI of 47.3 implanted control device with tachypnea and tachycardia need to entertain possibility of pulmonary embolus and reason for d- dimer. Treatment Plan: With an elevated white count respiratory symptoms will treat with antibiotics. This may represent a pneumonia and not visualized on the x- ray. With a normal EKG other than tachycardia and normal troponin and a heart score of 1 patient was discharged with no further workup needed. In light of her constipation symptoms this may represent an anxiety panic attack. Disposition: Discharged home with prescription for azithromycin Impression: 1. Respiratory infection with leukocytosis 2. Sinus tachycardia documented on EKG 3. Dyspnea of uncertain etiology 4. Vasovagal near syncopal episode This note was generated with [employer] dictation software. It may contain incorrect words, spelling, and punctuation that were not noted in review of the chart prior to signing ED Disposition - Plan for ED Patient: Disposition: Home or Assisted Living Chief Complaint: Chest Pain Instructions: ED Upper Resp Infec Abx Tx, ED Near Syncope Vasovagal Prescriptions: Azithromycin [Zithromax Z-Adrian] 250 mg PO UD #1 box Referrals: Care Physician,No Primary [Primary Care Provider] - Romana Shanks [NON-STAFF] - 3-5 Days if not improving
[2018-07-20 22:33] VITALS: BP 161/83; PULSE 91; RESP 20; O2SAT 97
== END 2018-07-20 22:35 | disposition home or self-care (01) ==
PROVIDERS: Emergency Provider Emergency Medicine
DX: J40 Bronchitis, not specified as acute or chronic (principal); R00.0 Tachycardia, unspecified; R55 Syncope and collapse; R06.00 Dyspnea, unspecified; I10 Essential (primary) hypertension; R53.83 Other fatigue; M79.602 Pain in left arm; R00.2 Palpitations; K59.00 Constipation, unspecified; E66.9 Obesity, unspecified; Z68.42 Body mass index [BMI] 45.0-49.9, adult
CPT/HCPCS: 71046; 80048; 84484; 85025; 85379; 93005; 99284

== ENCOUNTER 2019-06-04 20:26 | Emergency (ER) | payer MEDICAID, SELFPAY ==
[2019-06-04 20:26] VITALS: BMI 60.2
[2019-06-04 20:28] VITALS: BP 152/81; PULSE 99; RESP 18; TEMP 36.4; O2SAT 98; BMI 68.1
--- NOTE | 2019-06-04 21:08 | EKG12_ITS ---
Test Reason : CP/SOB Blood Pressure : / mmHG Vent. Rate : 089 BPM Atrial Rate : 089 BPM P-R Int : 152 ms QRS Dur : 090 ms QT Int : 392 ms P-R-T Axes : 000 010 016 degrees QTc Int : 476 ms Normal sinus rhythm Normal ECG Confirmed by CARLYN VARGAS, ERINN ([id number]), features editor MARCELLE VACA ([id number]) on 06/06/2019 10:46:06 AM Referred By: DR SARGENT Confirmed By:ERINN ALCOCER MD
--- NOTE | 2019-06-04 21:45 | RAD_ITS ---
STUDY: X-RAY CHEST REASON FOR EXAM: Female, 28 years old. Chest pain. TECHNIQUE: Portable chest. COMPARISON: 07/20/2018. FINDINGS: The lungs are clear and expanded. There is no demonstrated pleural abnormality. Normal size heart. Normal mediastinum and tarik. Normal visualized pulmonary arteries. Normal visualized aortic arch and descending thoracic aorta. Normal visualized thoracic spine. Normal visualized ribs, clavicles, and shoulders. There is no demonstrated abnormality of the visualized soft tissue structures of the upper abdomen. RAD/Chest 1 View (Portable) IMPRESSION: Normal x-ray examination of the chest. Electronically Signed: Shelby Hernandez MD at 22:42 EDT Tel , Service support ,
--- NOTE | 2019-06-04 22:54 | ED.DCSUM_ITS ---
- ER Visit Summary Date of Service: 06/04/19 Chief Complaint: Chest pain History of Present Illness: The patient is a 28 F who presents with chest pain. This been going on for about 2 weeks. She complains of shortness of breath, increased cough, increased wheezing. She does have a history of asthma. Her chest hurts with coughing palpation or certain movements. She was seen in urgent care and started on antibiotics and steroids but states she just does not seem to be improving. No fevers nausea vomiting. Physical Examination: Afebrile vitals unremarkable No distress Heart regular rate and rhythm Lungs are clear no rales rhonchi or wheezing Reproducible chest wall pain Abdomen soft Alert Test Results: EKG shows normal sinus rhythm at a rate of 89 with no acute ischemic changes. Chest x-ray is normal. Emergency Department Course and Treatment: Patient's presentation is most consistent with bronchitis and chest wall pain. I do not believe further antibiotics or steroids are indicated. She was advised on supportive care. She was advised of the average time for cough with bronchitis can be 3 weeks. She was given naproxen for chest wall pain as well as a prescription for the same was discharged home. Treatment Plan: [] Disposition: Discharge Impression: Bronchitis Chest wall pain This note was generated with [employer] dictation software. It may contain incorrect words, spelling, and punctuation that were not noted in review of the chart prior to signing ED Disposition - Plan for ED Patient: Referrals: Tyson De La Fuente MD [Primary Care Provider] -
--- NOTE | 2019-06-04 22:56 | ED.DEP ---
ED Disposition - Plan for ED Patient: Instructions: CHEST WALL PAIN, Costochondritis, Acute Bronchitis Prescriptions: Naproxen [Naprosyn] 500 mg PO BID #20 tab Prescription Printed Referrals: Tyson De La Fuente MD [Primary Care Provider] -
[2019-06-04] MEDS: Naproxen 500 MG Tablet PO (23:02)
[2019-06-04 23:03] VITALS: BP 145/91; PULSE 89; RESP 16; O2SAT 97
== END 2019-06-04 23:06 | disposition home or self-care (01) ==
PROVIDERS: Emergency Provider Emergency Medicine; Family Provider Family Medicine; PCP Family Medicine
DX: J40 Bronchitis, not specified as acute or chronic (principal); R07.89 Other chest pain; E11.9 Type 2 diabetes mellitus without complications; I10 Essential (primary) hypertension; K90.0 Celiac disease; F32.9 Major depressive disorder, single episode, unspecified; F41.9 Anxiety disorder, unspecified
CPT/HCPCS: 71045; 93005; 99283

== ENCOUNTER 2019-08-01 06:49 | Emergency (ER) | payer MEDICAID, SELFPAY ==
[2019-08-01 06:50] VITALS: PULSE 105; RESP 20; TEMP 36.6; O2SAT 97; BMI 66.9
--- NOTE | 2019-08-01 07:15 | RAD_ITS ---
STUDY: X-RAY CHEST REASON FOR EXAM: Female, 28 years old. Chest pain and pressure TECHNIQUE: PA and lateral views of the chest. COMPARISON: 06/04/2019 FINDINGS: The lungs are clear and expanded. There is no demonstrated pleural abnormality. Normal size heart. Normal mediastinum and tarik. Normal visualized pulmonary arteries. Normal visualized aortic arch and descending thoracic aorta. Normal visualized thoracic spine. Normal visualized ribs, clavicles, and shoulders. There is no demonstrated abnormality of the visualized soft tissue structures of the upper abdomen. RAD/Chest PA and Lateral IMPRESSION: Normal x-ray examination of the chest. Electronically Signed: Ted Navarrete DO at 8:35 EDT Tel , Service support ,
[2019-08-01 07:20] VITALS: BP 145/94; PULSE 100; RESP 20; O2SAT 98
--- NOTE | 2019-08-01 07:33 | ED.DCSUM_ITS ---
- ER Visit Summary Date of Service: 08/01/19 Chief Complaint: Cough History of Present Illness: The patient is a 28 F history of [id number] diabetes, hypertension, celiac and asthma. Patient states 1 to 2 weeks she has had a cough that is productive of yellowish to green sputum. Subjective fever. No shortness of breath. No leg pain or swelling. No history of DVT or PE. No history of cardiac disease. Physical Examination: Well-appearing young female. No acute distress. Vital signs are stable and afebrile. Pulse ox 97% on room air no signs of hypoxia. HEENT exam unremarkable. Clear tympanic membranes. Posterior pharynx moist and pink. No erythema or exudate. No trouble swallowing or breathing. No significant nasal discharge. No purulence. Sinuses are nontender. Neck nontender no lymphadenopathy. Lungs good auscultation bilaterally. No rales, rhonchi or wheezing. Equal symmetrical. Heart regular rhythm no murmur rate about 90. Abdomen obese but soft. Nontender, nondistended normal bowel sounds no peritoneal signs. Patient moving all 4 extremities. Calves are nontender without edema or cords. Neurologically patient is awake and alert with no focal motor deficits. Test Results: Chest x-ray AP and lateral 2 views read by myself shows a normal cardiac silhouette with no acute abnormality. No pneumonia. Unchanged from a recent prior chest x-ray. Emergency Department Course and Treatment: Repeat exam unchanged. Patient I discussed her x-ray results. Treatment Plan: Outpatient follow-up as needed. Treated as a viral URI. Fluids and rest. Tylenol as needed. Return if worse. Disposition: Discharge Impression: Viral bronchitis This note was generated with [employer] dictation software. It may contain incorrect words, spelling, and punctuation that were not noted in review of the chart prior to signing ED Disposition - Plan for ED Patient: Disposition: Home or Assisted Living Instructions: BRONCHITIS, No Antibiotic (Adult) Referrals: Tyson De La Fuente MD [Primary Care Provider] - 10-14 Days if not better Additional Instructions: Tylenol as needed for any fever. Plenty of fluids and rest. Follow-up if not improving. At this time you do not need any antibiotic therapy.
--- NOTE | 2019-08-01 07:36 | ED.DEP ---
ED Disposition - Plan for ED Patient: Disposition: Home or Assisted Living Instructions: BRONCHITIS, No Antibiotic (Adult) Referrals: Tyson De La Fuente MD [Primary Care Provider] - 10-14 Days if not better Additional Instructions: Tylenol as needed for any fever. Plenty of fluids and rest. Follow-up if not improving. At this time you do not need any antibiotic therapy.
--- NOTE | 2019-09-02 02:53 | ED.RN ---
vaibhav gann called seeing if patient was recently here for pain medication. spoke with er doctor at this time
== END 2019-08-01 08:28 | disposition home or self-care (01) ==
PROVIDERS: Emergency Provider Emergency Medicine; Family Provider Family Medicine; PCP Family Medicine
DX: J20.8 Acute bronchitis due to other specified organisms (principal); J45.909 Unspecified asthma, uncomplicated; E11.9 Type 2 diabetes mellitus without complications; I10 Essential (primary) hypertension; K90.0 Celiac disease; Z79.84 Long term (current) use of oral hypoglycemic drugs; Z79.899 Other long term (current) drug therapy
CPT/HCPCS: 71046; 99282

== ENCOUNTER 2019-10-05 09:13 | Emergency (ER) | payer MEDICAID, SELFPAY ==
[2019-10-05 09:14] VITALS: BP 130/95; PULSE 98; RESP 16; TEMP 36.1; O2SAT 97; BMI 61.5
--- NOTE | 2019-10-05 09:23 | ED.VIS.GEN ---
History of Present Illness Chief Complaint: Abd Pain Detail of Chief Complaint: Right upper quadrant abdominal pain with nausea and vomiting Informant: Patient Onset: Yesterday Context: Sudden Onset Timing: Continuous Quality: Pain and sour stomach Location: Right upper quadrant Current Severity: Mild Maximum Severity: Moderate Worsened by: Eating Relieved by: Nothing Associated Symptoms: Chills Narrative: Patient is a 29-year-old female status post cholecystectomy September 06, [address] Nuñez at [facility] who presents with right upper quadrant pain with nausea and vomiting started last evening at 2000. She had her Thanksgiving meal at approximately 2 PM. She states vomiting started 8:00. She is vomited 3 times. She denies hematemesis, melena or hematochezia. She denies mucus in her stool. Last bowel movement was 24 hours ago. She is passing gas. She denied fever. She states she had shaking chills yesterday. She does report dysuria without frequency or urgency. She states she does not have menstrual cycles. She has no symptoms of . She denies headache, visual, ocular auditory symptoms. She denies rhinorrhea, congestion or postnasal drainage. She denies throat pain or hoarse voice. She denies cough or shortness of breath. She denies back or flank pain. Prior similar symptoms: No Recent Illness/Hospitalization: Yes - Past Medical History (1) Cholelithiasis Status: Acute Past Medical History - Allergies and Home Meds Allergies/Adverse Reactions: Allergies bee pollen Allergy (Verified 10/05/19 09:14) Hives codeine Allergy (Verified 10/05/19 09:14) Hives fluticasone [From Advair Diskus] Allergy (Verified 10/05/19 09:14) Hives mushroom Allergy (Verified 10/05/19 09:14) Hives salmeterol [From Advair Diskus] Allergy (Verified 10/05/19 09:14) Hives sucralfate [From Carafate] Allergy (Verified 10/05/19 09:14) Hives Primary Care Physician: Tyson De La Fuente MD [Primary Care Provider] - Prior records reviewed: Yes Surgical History: cholecystectomy Lives: Spouse/ Significant Other Smoking Status: Never smoker Alcohol: None Drugs: None Review of Systems General: Reports: Chills. Denies: Fever, Malaise, Subjective, Sweats, Weight loss, - Eyes: Denies: Visual changes - bilaterally, Blurred Vision - bilaterally ENT: Denies: Bilateral ear pain, Rhinorrhea, Sore throat Cardiovascular: Denies: Chest pain, Palpitations Respiratory: Denies: Dyspnea, Cough, Dyspnea on exertion Gastrointestinal: Reports: Abdominal pain, Nausea, Vomiting, - - States when she was ill with her gallbladder issue she did note blood on toilet paper.. Denies: Diarrhea, Constipation, Melena, Hematochezia Genitourinary: Reports: Dysuria. Denies: Hematuria, Frequency Musculoskeletal: Denies: Myalgias, Arthralgias, Neck pain, Back pain, Swelling, Extremity Pain, -, - Skin: Denies: Rash, Wounds Neurological: Denies: Headache, Weakness, Numbness Hematologic: Denies: Easy bruising, Easy bleeding Allergy: Denies: Uticaria Physical Exam Vital Signs/Narrative: Vital Signs Temp Pulse Resp BP Pulse Ox 10/05/19 09:14 97.0 F L 98 16 130/95 H 97 Inital Vital Signs reviewed: Yes General: Well nourished, Well developed, Obese - BMI is 61.6., No Acute Distress Head: Normocephalic, Atraumatic Eyes: Perrl, EOMI. Negative for: Pale conjunctiva, Scleral icterus ENT: Moist mucous membranes, No rhinorrhea Neck: Supple, Nontender, No lymphadenopathy, No JVD Cardiovascular: Regular rate, Regular rhythm, No murmurs, Normal S1, Normal S2 Respiratory: No distress, CTA bilaterally, Chest nontender Abdomen: Soft, Nondistended, Normal bowel sounds, No masses, Tender - Tenderness right upper quadrant. Negative for: Nontender, Guarding, Rebound tenderness, Hepatomegaly, Splenomegaly, Mass, Ventral hernia, Umbilical hernia, Cloud's sign Rectal: Deferred Back: Nontender, Normal Inspection Extremities: Nontender, No edema Skin: Normal color, No rash, No Trauma. Negative for: Cyanosis, Diaphoresis, Jaundice Neurological: Alert, Oriented x3, Cranial nerves II-XII grossly intact, Normal Strength, Normal Sensation, Normal Gait Psychological: Normal affect Diagnostic/Tx/Re-eval Laboratory Results 10/05/19 10/05/19 10/05/19 09:30 09:30 09:30 WBC 15.9 H RBC 5.26 Hgb 13.4 Hct 41.7 MCV 79.3 L MCH 25.5 L MCHC 32.1 RDW Std Deviation 42.7 RDW Coeff of Solo 15.0 H Plt Count 402 MPV 9.7 Immature Gran % (Auto) 0.600 Neut % (Auto) 72.0 H Lymph % (Auto) 16.8 L [place] % (Auto) 7.8 Eos % (Auto) 2.4 Baso % (Auto) 0.4 Absolute Neuts (auto) 11.4 H Absolute Lymphs (auto) 2.66 Nucleated RBC % 0 Sodium 139 Potassium 3.5 Chloride 106 Carbon Dioxide 25.0 Anion Gap 8 BUN 15 Creatinine 0.75 Estim Creat Clear Calc 120.76 Est GFR (MDRD) Af Amer 118 Est GFR (MDRD) Non-Af 98 BUN/Creatinine Ratio 19.9 Glucose 98 Calcium 9.1 Total Bilirubin 0.70 AST 11 L ALT 19 Alkaline Phosphatase 112 Total Protein 8.0 Albumin 3.7 Globulin 4.3 H Albumin/Globulin Ratio 0.9 Lipase 63 L Urine Color Yellow Urine Clarity Clear Urine pH 6.0 Ur Specific [place] 1.015 Urine Protein Negative Urine Glucose (UA) Normal Urine Ketones Negative Urine Occult Blood 150 H Urine Nitrite Negative Urine Bilirubin Negative Urine Urobilinogen Normal Ur Leukocyte Esterase 25 H Urine RBC 10-25 SEEN Urine WBC 0 SEEN Ur Squamous Epith Cells 10-25 SEEN Urine Bacteria RARE Urine Mucus 0 SEEN White count is elevated, which is a nonspecific marker. This could be secondary to viral gastritis. UA is unremarkable. Urine is consistent with a contaminated specimen. There is no pyuria or bacteria. Furthermore nitrites were negative. Conference of metabolic panel was unremarkable and specifically liver enzymes were normal. - Medical Decision Making Presents to the emergency room because she was instructed to do so by the nurse on-call for [facility]. This may represent viral illness. Because she has tenderness right upper quadrant and recent cholecystectomy baseline blood work was obtained and specifically to assess liver enzymes. Because she complains of dysuria a UA was obtained to evaluate for urinary tract infection. She states the dysuria started 1.5 days ago. Since laboratory results are unremarkable other than the elevated white count, which is nonspecific p.o. challenge was ordered. Did pass p.o. challenge. Will discharge to home with prescription for Zofran and work excuse. ED Disposition - Plan for ED Patient: Disposition: Home or Assisted Living Diagnosis: Right upper quadrant abdominal pain, Nausea and vomiting Instructions: VOMITING (7y-Adult) Prescriptions: Ondansetron [Zofran Odt] 4 mg PO Q8H PRN PRN #5 tab PRN Reason: Nausea Transmission Status: Pending to [id number] Referrals: Tyson De La Fuente MD [Primary Care Provider] - 3-5 Days if not improving
[2019-10-05] MEDS: Ondansetron 4 MG/2 ML Vial IV (09:31)
[2019-10-05 09:39] LABS: Mucous, Urine 0 SEEN /hpf (<or=2+); White Blood Cells 0 SEEN /hpf (0-5)
[2019-10-05 09:42] LABS: Absolute Lymphocyte Count 2.66 X10^3/uL (0.83-4.51); Absolute Neutrophil Count 11.4 X10^3/uL (2.0-7.7); Basophil# 0.06 X10^3/uL; Basophil% 0.4 % (0-1); Eosinophil# 0.38 X10^3/uL; Eosinophils% 2.4 % (0-5); Hematocrit 41.7 % (37-47); Hemoglobin 13.4 g/dL (12.0-15.0); Lymphocyte # 2.66 X10^3/ul (4.0); Lymphocyte % 16.8 % (19-41); Mean Corp Hgb Conc 32.1 g/dL (32-36); Mean Corpuscular Hgb 25.5 pg (27.0-32.0); Mean Corpuscular Volume 79.3 fL (81-99); Mean Platelet Vol. 9.7 fl (6.2-12.0); Monocyte# 1.24 X10^3/uL; Monocyte% 7.8 % (0-10); NRBC Flagged by Analyzer 0 % (0-5); Neutrophil # 11.43 X10^3/uL (2.7-7.7); Platelet Count 402 K/mm3 (150-450); RBC Distribution Width SD 42.7 fl (35.1-43.9); Red Blood Count 5.26 M/mm3 (4.2-5.4); White Blood Count 15.9 K/mm3 (4.4-11.0)
[2019-10-05 09:43] LABS: Color, Urine Yellow (Yellow); Glucose, Dipstick Normal (Normal); Ketone-Dipstick Negative (Negative); Leukocyte Esterase-Dipstick 25 /ul (Negative); Nitrite-Dipstick Negative (Negative); Occult Blood-Urine 150 /ul (Negative); Protein-Dipstick Negative (Negative); Specific Gravity, Urine 1.015 (1.002-1.030); Urine Bilirubin Dipstick Negative (Negative); Urine Clarity Clear (Clear); Urine Urobilinogen Normal (Normal)
[2019-10-05 09:53] LABS: Red Blood Cells-Urine 10-25 SEEN /hpf (0-5); Squamous Epithelial Cells - UA 10-25 SEEN /hpf (5-10)
[2019-10-05 09:54] LABS: Bacteria RARE /hpf (None Seen)
[2019-10-05 09:57] LABS: ALB/GLOB Ratio 0.9 RATIO (0.9-2.4); AST(SGOT) 11 U/L (15-37); Alanine Aminotransfer ALT/SGPT 19 U/L (13-56); Albumin, Serum 3.7 g/dL (3.2-5.0); Alkaline Phosphatase 112 U/L (45-117); Anion Gap 8 (5-15); BUN 15 mg/dL (7-18); BUN/Creat Ratio 19.9 RATIO (10-20); Calcium,Total 9.1 mg/dL (8.5-10.1); Chloride 106 mmol/L (98-107); Creatinine, Serum 0.75 mg/dL (0.55-1.02); EST Glomerular Filtration Rate 98 mL/min (>60); Est Glom Filt Rate - Afr Amer 118 mL/min (>60); Estimated Creatinine Clearance 120.76 ml/min; Globulin 4.3 g/dL (2.2-4.2); Glucose 98 mg/dL (74-106); Lipase 63 U/L (73-393); Potassium 3.5 mmol/L (3.5-5.1); Sodium Level 139 mmol/L (136-145)
[2019-10-05 11:30] VITALS: BP 144/95; PULSE 86; RESP 15; O2SAT 96
== END 2019-10-05 12:21 | disposition home or self-care (01) ==
PROVIDERS: Emergency Provider Emergency Medicine; Family Provider Family Medicine; PCP Family Medicine
DX: R10.11 Right upper quadrant pain (principal); R11.2 Nausea with vomiting, unspecified; R30.0 Dysuria; E66.9 Obesity, unspecified; Z68.44 Body mass index [BMI] 60.0-69.9, adult; Z79.84 Long term (current) use of oral hypoglycemic drugs; Z79.899 Other long term (current) drug therapy; Z90.49 Acquired absence of other specified parts of digestive tract
CPT/HCPCS: 80053; 81001; 83690; 85025; 96374; 99284; J7030; J2405

== ENCOUNTER 2020-09-29 14:03 | Emergency (ER) | payer MEDICAID, SELFPAY ==
[2020-09-29 14:03] VITALS: BP 167/103; PULSE 104; RESP 16; TEMP 36.2; O2SAT 97; BMI 66.4
--- NOTE | 2020-09-29 14:28 | CT_ITS ---
STUDY: CT ABDOMEN AND PELVIS WITHOUT CONTRAST REASON FOR EXAM: Female, 30 years old. Right lower quadrant pain radiating to the right flank for 3 days RADIATION DOSAGE (If Supplied By Facility): CTDIvol = ( 17.58 ) mGy, DLP = ( 1575.66 ) mGycm TECHNIQUE: Transaxial images were obtained from the dome of the diaphragm to the symphysis pubis without oral contrast, and without intravenous contrast. Sagittal and coronal images were reconstructed. Individualized dose optimization techniques were used for this CT. COMPARISON: Previous CT scan of the abdomen and pelvis obtained on 05/22/2018 FINDINGS: The lung bases and the base of the heart are normal. There is diffuse fatty infiltration of the liver..The spleen is normal.The adrenal glands are normal.The head, body, and tail of the pancreas are normal. The right and left kidneys were examined and appear to be normal. Both ureters appear to be normal, and no obstructive uropathy is identified. The abdominal aortal is normal along its course and distribution. No paraortic lymphadenopathy is seen. No abdominal masses or lesions are seen. The CT scan of the pelvis was then reviewed. The common iliac vessels, external iliac vessels, and common femoral vessels are normal along their course and distribution No pelvis masses or lesions are seen. The appendix is normal. No pericecal inflammatory reaction is seen. Bone scanning windows of the lumbar spine and pelvis were reviewed in the coronal and sagittal planes and appear to be normal. CT/Abdomen/Pelvis without Cont IMPRESSION: 1. Diffuse fatty infiltration of the liver. 2. No other evidence of acute intra-abdominal abnormality is seen. Electronically Signed: Wiley Woo, at 8:10 EST Tel , Service support ,
[2020-09-29] MEDS: Ondansetron 4 MG/2 ML Vial IV (15:13)
[2020-09-29] MEDS: Morphine 4 MG/ML Syringe IV (15:13)
[2020-09-29] MEDS: 0.9% Normal Saline 1,000 ML 1000 ML IV (15:13)
[2020-09-29 15:28] LABS: Absolute Lymphocyte Count 1.91 X10^3/uL (0.83-4.51); Basophil# 0.04 X10^3/uL; Basophil% 0.3 % (0-1); Eosinophils% 3.3 % (0-5); Hematocrit 43.4 % (37-47); Hemoglobin 13.6 g/dL (12.0-15.0); Lymphocyte # 1.91 X10^3/ul (4.0); Lymphocyte % 15.6 % (19-41); Mean Corp Hgb Conc 31.3 g/dL (32-36); Mean Corpuscular Hgb 25.6 pg (27.0-32.0); Mean Corpuscular Volume 81.7 fL (81-99); Monocyte# 0.77 X10^3/uL; Monocyte% 6.3 % (0-10); NRBC Flagged by Analyzer 0 % (0-5); Neutrophil # 9.04 X10^3/uL (2.7-7.7); Platelet Count 330 K/mm3 (150-450); RBC Distribution Width SD 41.1 fl (35.1-43.9); Red Blood Count 5.31 M/mm3 (4.2-5.4); White Blood Count 12.2 K/mm3 (4.4-11.0)
[2020-09-29 15:37] LABS: Internal QC Validated? YES +Cl - CLEAR BKGD; Pregnancy, Serum, hCG Quali. NEGATIVE Negative
[2020-09-29 15:44] LABS: AST(SGOT) 18 U/L (15-37); Alanine Aminotransfer ALT/SGPT 31 U/L (13-56); Albumin, Serum 3.4 g/dL (3.2-5.0); Alkaline Phosphatase 133 U/L (45-117); Anion Gap 6 (5-15); BUN 11 mg/dL (7-18); BUN/Creat Ratio 12.5 RATIO (10-20); Bilirubin, Direct 0.17 mg/dL (0.00-0.30); Calcium,Total 9.2 mg/dL (8.5-10.1); Chloride 100 mmol/L (98-107); Creatinine, Serum 0.88 mg/dL (0.55-1.02); EST Glomerular Filtration Rate 81 mL/min (>60); Est Glom Filt Rate - Afr Amer 98 mL/min (>60); Globulin 4.2 g/dL (2.2-4.2); Glucose 301 mg/dL (74-106); Lipase 72 U/L (73-393); Potassium 4.3 mmol/L (3.5-5.1); Protein, Total 7.6 g/dL (6.4-8.2); Sodium Level 134 mmol/L (136-145)
--- NOTE | 2020-09-29 16:43 | ED.DCSUM_ITS ---
- ER Visit Summary Date of Service: 09/29/20 Chief Complaint: Abdominal pain History of Present Illness: The patient is a [address] Fields. She reports that she has abdominal pain that began 3 days ago. Is gradually gotten worse. To stabbing diffuse pain that is worst in the right lower quadrant. Is 10 of 10 worsening to 10 currently. Is worsened by eating. Is relieved by being flat. She is been nausea and vomited 3 times. No blood in her emesis. She reports she is having 6-7 episodes of diarrhea. No blood in her stools or black tarry stools. No dysuria or frequency. Patient reports this is similar to when she had enteritis approximately month ago. She was placed on Flagyl. She denies any sick contacts. She has not been camping out of the country. No possible food exposure. She does not drink well water. Physical Examination: Vitals: Stable. Afebrile. General: Well-nourished and well-developed. Head: Normocephalic atraumatic. Neck: Supple, no lymphadenopathy. No JVD. Nontender. Cardiovascular: Regular rate and rhythm. No murmurs. Respiratory: No respiratory distress. Clear to auscultation bilaterally. Abdominal: Soft, mild diffuse tenderness palpation is worst in the right lower quadrant, nondistended, normal bowel sounds. No guarding, rebound, or peritoneal signs. Back: Nontender. Extremities: Nontender, no edema. Skin: Normal color, no rash. Neurologic: Alert and oriented ?3. Cranial nerves II through XII are intact. Normal strength and sensation. Psych: Normal affect. Test Results: CBC shows a white count of 12.2 with 74 segs neutrophils and 16 lymphocytes. Chem-7 shows a sodium 134 and glucose 301. LFTs show an alk phos of 133. Lipase is 72. test is negative. Preliminary reading of the CT shows fatty infiltration of her liver and a normal appendix. This was unable to to be sent to the teleradiologist as the images were somehow made unreadable in transport. Emergency Department Course and Treatment: Patient was treated with morphine and Zofran IV. She is resting comfortably. She has had not had diarrhea here so that we could send this for further evaluation. Treatment Plan: Patient will be discharged with Bentyl and Zofran. Instructed follow-up with her primary care physician 1 to 2 days if not improving. Return to the emergency department for any worsening symptoms. Disposition: To home in improved and stable condition. Impression: 1. Vomiting/diarrhea. 2. Abdominal pain. This note was generated with [employer] dictation software. It may contain incorrect words, spelling, and punctuation that were not noted in review of the chart prior to signing ED Disposition - Plan for ED Patient: Instructions: ED Vomiting and Diarrhea Nonspecific Adult Prescriptions: Dicyclomine HCl [Bentyl] 20 mg PO TIDAC #20 capsule Ondansetron [Zofran Odt] 4 mg PO Q8H PRN PRN #10 tablet PRN Reason: Nausea Referrals: Tyson De La Fuente MD [Primary Care Provider] - 1-2 Days if not improving
--- NOTE | 2020-09-29 16:52 | ED.RN ---
assisted pt up to bathroom and pt unable to have b.m.
[2020-09-29 16:54] VITALS: BP 116/90; PULSE 64; RESP 18
== END 2020-09-29 17:51 | disposition home or self-care (01) ==
LOC: ED 15:13
PROVIDERS: Emergency Provider Emergency Medicine; PCP Family Medicine
DX: R10.9 Unspecified abdominal pain (principal); R11.2 Nausea with vomiting, unspecified; R19.7 Diarrhea, unspecified
CPT/HCPCS: 74176; 80048; 80076; 83690; 84703; 85025; 96361; 96374; 96375; 99285; J7030; A4216; J2405

== ENCOUNTER 2020-12-31 17:21 | Emergency (ER) | payer MEDICAID, SELFPAY ==
[2020-12-31 17:21] VITALS: BP 161/113; PULSE 98; RESP 20; TEMP 35.9; O2SAT 96; BMI 63.3
--- NOTE | 2020-12-31 18:25 | RAD_ITS ---
STUDY: X-RAY CHEST REASON FOR EXAM: Female, 30 years old. Cough TECHNIQUE: Single AP portable view of the chest. COMPARISON: August 01, 2019 FINDINGS: The lungs are clear and expanded. There is no demonstrated pleural abnormality. Normal size heart. Normal mediastinum and tarik. Normal visualized pulmonary arteries. Normal visualized aortic arch and descending thoracic aorta. Normal visualized thoracic spine. Normal visualized ribs, clavicles, and shoulders. There is no demonstrated abnormality of the visualized soft tissue structures of the upper abdomen. RAD/Chest 1 View (Portable) IMPRESSION: Normal x-ray examination of the chest. Electronically Signed: Jose Deluna MD at 18:55 EST , Service support ,
--- NOTE | 2020-12-31 18:52 | ED.VIS.GEN ---
History of Present Illness Chief Complaint: General Illness Informant: Patient Narrative: 30-year-old female presenting with body aches, fever of T-max of 101, runny nose, and chills. No change in taste or smell. She also complains of nausea/vomiting as well as diarrhea. Patient states she was tested for COVID-19 on Tuesday after she started having symptoms. She states this is a rapid test and came back negative. Patient continues have symptoms. She talked to her PCP who did give her Zofran however this does not appear to be helping her. She is only able to get very small amounts of food and fluids in her. Patient again talked to her PCP and was sent to the ER for reevaluation. Past Medical History - Allergies and Home Meds Allergies/Adverse Reactions: Allergies bee pollen Allergy (Verified 12/31/20 17:23) Hives codeine Allergy (Verified 12/31/20 17:23) Hives fluticasone [From Advair Diskus] Allergy (Verified 12/31/20 17:23) Hives mushroom Allergy (Verified 12/31/20 17:23) Hives salmeterol [From Advair Diskus] Allergy (Verified 12/31/20 17:23) Hives sucralfate [From Carafate] Allergy (Verified 12/31/20 17:23) Hives Primary Care Physician: Tyson De La Fuente MD [Primary Care Provider] - Prior records reviewed: Yes Past Medical History: - - Diabetes, hypertension, asthma Surgical History: noncontributory, cholecystectomy Lives: Spouse/ Significant Other Smoking Status: Never smoker Alcohol: None Drugs: None Review of Systems General: Reports: Chills, Fever, Malaise ENT: Denies: Rhinorrhea, Sore throat Cardiovascular: Denies: Chest pain, Palpitations Respiratory: Reports: Cough Gastrointestinal: Reports: Nausea, Vomiting, Diarrhea. Denies: Abdominal pain Musculoskeletal: Reports: Myalgias. Denies: Arthralgias Skin: Denies: Rash, Abscess Neurological: Reports: Headache. Denies: Weakness, Parasthesia, Numbness Psych: Denies: Depression, Anxiety Physical Exam Vital Signs/Narrative: Vital Signs Temp Pulse Resp BP Pulse Ox 12/31/20 17:21 96.6 F L 98 20 H 161/113 H 96 General: Obese, No Acute Distress Head: Normocephalic, Atraumatic Eyes: Perrl, EOMI. Negative for: Pale conjunctiva ENT: Moist mucous membranes, No rhinorrhea Cardiovascular: Regular rate, Regular rhythm Respiratory: No distress, CTA bilaterally Abdomen: Soft, Nontender, Nondistended Extremities: Nontender, No edema Skin: Normal color, No rash. Negative for: Cyanosis, Diaphoresis Neurological: Alert, Oriented x3, Cranial nerves II-XII grossly intact Psychological: Normal affect, Normal Mood Diagnostic/Tx/Re-eval Clinical Impression(s) from Imaging Studies Chest X-Ray 12/31/20 18:25 IMPRESSION: Normal x-ray examination of the chest. Electronically Signed: Jose Deluna MD at 18:55 EST , Service support , - Medical Decision Making Patient presenting for evaluation of nausea, vomiting, viral symptoms. Patient given Phenergan 25 mg p.o. because she states that Zofran is not helping. Patient had chest x-ray as interpreted by myself which shows no acute cardiopulmonary process. Radiology does agree. She is not tachypneic, hypoxic, tachycardic. She is also afebrile. He feels improved after receiving Phenergan. She will be discharged home on Phenergan and Zofran. She is counseled on bland diet and hydration. She is given return precautions. Patient will quarantine until test results return. Impression: 1. Viral syndrome 2. Nausea/vomiting 3 diarrhea ED Disposition - Plan for ED Patient: Disposition: Home or Assisted Living Instructions: Preventing the Spread of Infection Understanding Isolation Procedures, Coronavirus Disease 2019 (COVID-19): Overview, ED Vomiting and Diarrhea ... Prescriptions: Famotidine [Pepcid] 20 mg PO BID #20 tab Transmission Status: Pending to [facility] Promethazine HCl 25 mg PO Q8H PRN PRN #20 tab PRN Reason: Nausea Transmission Status: Pending to [facility] Referrals: Tyson De La Fuente MD [Primary Care Provider] -
[2020-12-31] MEDS: proMETHazine 25 MG Tablet PO (20:12)
[2020-12-31 20:13] VITALS: BP 139/81; PULSE 91; RESP 17; O2SAT 96
== END 2020-12-31 21:24 | disposition home or self-care (01) ==
PROVIDERS: Emergency Provider Student in an Organized Health Care Education/Training Program; PCP Family Medicine
DX: B34.9 Viral infection, unspecified (principal); I10 Essential (primary) hypertension; E11.9 Type 2 diabetes mellitus without complications; J45.909 Unspecified asthma, uncomplicated; Z79.84 Long term (current) use of oral hypoglycemic drugs; Z79.899 Other long term (current) drug therapy
CPT/HCPCS: 71045; 87426; 87635; 99283; U0003

== ENCOUNTER 2021-02-11 15:28 | Inpatient (IN) | payer MEDICAID, SELFPAY ==
[2021-02-11] VITALS (13 sets, daily range): BP systolic 132–171; BP diastolic 76–127; PULSE 99–125; RESP 15–24; TEMP 36.6–37.4; O2SAT 93–98; BMI 66.2; BMI 66.5; BMI 66.6
--- NOTE | 2021-02-11 15:50 | CT_ITS ---
INDICATION: Right flank pain, UTI sx -- Eval for pyelonephritis EXAMINATION: CT Abdomen And Pelvis W/ Contrast Injection TECHNIQUE: Helically acquired images were obtained of the abdomen and pelvis after IV contrast. A radiation dose optimization technique was used for this scan. IV Contrast dosage and agent: 09/29/2020 Oral contrast: None. COMPARISON: None. FINDINGS: Visualized lung bases: Unremarkable Liver: Diffusely hypodense consistent with fatty liver. Gallbladder: Surgically absent. Spleen: Unremarkable Pancreas: Unremarkable Adrenal Glands: Unremarkable Kidneys: Unremarkable GI Tract: Unremarkable Vasculature: Unremarkable Lymphadenopathy: None Peritoneum: No ascites. Bladder: Unremarkable Reproductive organs: Unremarkable Bones/Soft tissues: No suspicious osseous or soft tissue lesions CT/Abdomen/Pelvis W IV Cont ONLY IMPRESSION: No acute abnormalities in the abdomen or pelvis. Fatty liver. Electronically Signed: Grady Patricia MD at 18:14 EDT Tel , Service support ,
--- NOTE | 2021-02-11 15:59 | ED.DCSUM_ITS ---
History of Present Illness Chief Complaint: Complaint Informant: Patient Narrative: Patient is a 30-year-old female with a past medical history of diabetes, hypertension, asthma who presents to the emergency department for right-sided flank pain and urinary discomfort. She was seen in outside emergency department 1 week ago and had a CT scan at that time. She was diagnosed with a UTI and has been on Keflex since. Compliant with this. The pain has been getting significantly worse in the right lower quadrant extending to the right side of the back. No History of kidney stones. She did have episode of nausea and vomiting this morning. She denies any fevers or chills. She currently rates the pain as an 8 at 10 which she has been taking [id number] medications for. This has not been giving her any relief. She does have burning with urination. She denies any chest pain, shortness of breath or cough. No rashes. No headache or stiff neck. She did develop diarrhea over the past few days. She was referred to the emergency department for further evaluation by her PCP today. She states that her blood sugar was elevated in the 300s. She is not on insulin. Past Medical History - Allergies and Home Meds Allergies/Adverse Reactions: Allergies bee pollen Allergy (Verified 02/11/21 15:32) Hives codeine Allergy (Verified 02/11/21 15:32) Hives fluticasone [From Advair Diskus] Allergy (Verified 02/11/21 15:32) Hives mushroom Allergy (Verified 02/11/21 15:32) Hives salmeterol [From Advair Diskus] Allergy (Verified 02/11/21 15:32) Hives sucralfate [From Carafate] Allergy (Verified 02/11/21 15:32) Hives Primary Care Physician: Tyson De La Fuente MD [Primary Care Provider] - Prior records reviewed: Yes Surgical History: noncontributory, cholecystectomy Smoking Status: Never smoker Review of Systems All systems negative except as indicated General: Denies: Chills, Fever, Sweats Eyes: Denies: Visual changes - bilaterally, Diplopia ENT: Denies: Rhinorrhea, Sore throat Cardiovascular: Denies: Chest pain, Palpitations Respiratory: Denies: Dyspnea, Cough, Dyspnea on exertion Gastrointestinal: Reports: Abdominal pain, Nausea, Vomiting. Denies: Diarrhea, Melena, Hematochezia Genitourinary: Reports: Dysuria. Denies: Hematuria Musculoskeletal: Reports: Back pain. Denies: Extremity Pain Skin: Denies: Rash, Wounds Neurological: Denies: Headache, Weakness, Numbness Physical Exam Vital Signs/Narrative: Vital Signs Temp Pulse Resp BP Pulse Ox 02/11/21 15:29 98.5 F 125 H 18 166/127 H 96 Inital Vital Signs reviewed: Yes General: Well nourished, Well developed, No Acute Distress Head: Normocephalic, Atraumatic Eyes: Perrl, EOMI ENT: Moist mucous membranes, No rhinorrhea Neck: Supple, Nontender Cardiovascular: Regular rhythm, No murmurs Respiratory: No distress, CTA bilaterally, Chest nontender Abdomen: Soft, Nondistended, Normal bowel sounds, Tender - Diffuse but worse in the right lower quadrant Back: Nontender, Normal Inspection, CVA tenderness - Bilateral but worse on the right Extremities: Nontender, No edema Skin: Normal color, No rash Neurological: Alert, Oriented x3, Normal Strength, Normal Sensation Psychological: Normal affect, Normal Mood Diagnostic/Tx/Re-eval - Medical Decision Making Patient presents to the ED for right-sided flank pain with urinary tract infection being diagnosed 1 week ago. She has been on antibiotics. Upon arrival to the emergency department she is hypertensive and tachycardic. She otherwise is afebrile. Basic lab work being obtained including blood cultures, lactic acid. We will start her on IV fluids. We will repeat CT scan of the abdomen/pelvis with contrast to evaluate for pyelonephritis versus stone. CT imaging did not reveal any obvious acute intra-abdominal pathology. No obvious pyelonephritis or kidney stone. She does not have a high white count. She did have an elevated lactic acid. She was given a bolus of normal saline. She received 2 L and this was repeated and it was still elevated but did decrease. I did discuss potentially going home versus staying in the hospital but because patient is persistently tachycardic I do feel patient would better b e served being monitored in the hospital overnight. She was given a IV dose of Rocephin. Urine shows potential evidence of infection although it is mildly contaminated. This has been sent for culture along with blood cultures in the meantime. Patient understands and is agreeable with this plan. She otherwise has been stable throughout ED stay. ED Disposition - Plan for ED Patient: Disposition: Acute Care Hospital [facility] Diagnosis: Pyelonephritis, Lactic acidosis, Hyperglycemia Referrals: Tyson De La Fuente MD [Primary Care Provider] -
[2021-02-11 16:28] LABS: Absolute Lymphocyte Count 1.94 X10^3/uL (0.83-4.51); Absolute Neutrophil Count 7.5 X10^3/uL (2.0-7.7); Basophil# 0.05 X10^3/uL; Basophil% 0.5 % (0-1); Eosinophil# 0.27 X10^3/uL; Eosinophils% 2.5 % (0-5); Hematocrit 40.4 % (37-47); Hemoglobin 13.7 g/dL (12.0-15.0); Lymphocyte # 1.94 X10^3/ul (4.0); Lymphocyte % 18.3 % (19-41); Mean Corp Hgb Conc 33.9 g/dL (32-36); Mean Corpuscular Hgb 27.6 pg (27.0-32.0); Mean Corpuscular Volume 81.3 fL (81-99); Mean Platelet Vol. 10.2 fl (6.2-12.0); Monocyte# 0.81 X10^3/uL; Monocyte% 7.6 % (0-10); NRBC Flagged by Analyzer 0 % (0-5); Neutrophil # 7.46 X10^3/uL (2.7-7.7); Neutrophil % 70.3 % (47-70); Platelet Count 329 K/mm3 (150-450); RBC Distribution Width CV 14.1 % (11.6-14.6); RBC Distribution Width SD 40.6 fl (35.1-43.9); Red Blood Count 4.97 M/mm3 (4.2-5.4); White Blood Count 10.6 K/mm3 (4.4-11.0)
[2021-02-11] MEDS: 0.9% Normal Saline 1,000 ML 999 ML IV ×2 (16:28→17:35)
[2021-02-11 16:43] LABS: Bacteria 0 SEEN /hpf (None Seen); Mucous, Urine 0 SEEN /hpf (<or=2+)
[2021-02-11 16:43] LABS: ALB/GLOB Ratio 0.8 RATIO (0.9-2.4); AST(SGOT) 35 U/L (15-37); Alanine Aminotransfer ALT/SGPT 45 U/L (13-56); Albumin, Serum 3.3 g/dL (3.2-5.0); Alkaline Phosphatase 116 U/L (45-117); Anion Gap 6 (5-15); BUN 10 mg/dL (7-18); Calcium,Total 9.2 mg/dL (8.5-10.1); Chloride 99 mmol/L (98-107); Creatinine, Serum 0.91 mg/dL (0.55-1.02); EST Glomerular Filtration Rate 78 mL/min (>60); Est Glom Filt Rate - Afr Amer 94 mL/min (>60); Estimated Creatinine Clearance 98.64 ml/min; Globulin 4.3 g/dL (2.2-4.2); Glucose 309 mg/dL (74-106); Potassium 3.7 mmol/L (3.5-5.1); Protein, Total 7.6 g/dL (6.4-8.2); Sodium Level 133 mmol/L (136-145)
[2021-02-11 16:51] LABS: Color, Urine Yellow (Yellow); Glucose, Dipstick 100 mg/dl (Normal); Ketone-Dipstick Negative (Negative); Leukocyte Esterase-Dipstick 500 /ul (Negative); Nitrite-Dipstick Negative (Negative); Occult Blood-Urine 50 /ul (Negative); Protein-Dipstick 30 mg/dl (Negative); Urine Bilirubin Dipstick Negative (Negative); Urine Clarity Clear (Clear); Urine Urobilinogen Normal (Normal)
[2021-02-11 17:01] LABS: Squamous Epithelial Cells - UA 10-25 SEEN /hpf (5-10); White Blood Cells 5-10 SEEN /hpf (0-5)
[2021-02-11 17:02] LABS: Internal QC Validated? YES +Cl - CLEAR BKGD; Pregnancy, Urine Negative Negative; Red Blood Cells-Urine 5-10 SEEN /hpf (0-5)
[2021-02-11 17:08] LABS: Lactic Acid 3.2 mmol/L (0.4-1.9)
[2021-02-11] MEDS: Morphine 4 MG/ML Syringe IV (18:12)
--- NOTE | 2021-02-11 19:29 | ED.RN ---
CALLED PHARMACY BECAUSE IV ANTIBIOTIC STILL NOT IN ED AFTER 30 MINUTES. THEY SAID THEY ARE WORKING ON IT AND IT WILL BE UP [place].
[2021-02-11 20:02] LABS: Lactic Acid 2.5 mmol/L (0.4-1.9)
[2021-02-11 20:24] LABS: Reflex Lactate? Y
[2021-02-11] MEDS: 0.45% Normal Saline 1,000 ML 200 ML IV (22:13)
--- NOTE | 2021-02-11 22:30 | HP.PCM_ITS ---
<Abbey Barroso - Last Filed: 02/11/21 22:30> Problem List (1) Urinary tract infection Status: Acute (2) Lactic acidosis Status: Acute (3) Depression Status: Chronic (4) Hypertension Status: Chronic (5) Asthma Status: Chronic (6) Diabetes mellitus, type 2 Status: Chronic (7) Morbid obesity with BMI of 60.0-69.9, adult Status: Chronic History of Present Illness Date of Admission: 02/11/21 Chief Complaint: UTI, right flank pain The patient is a 30 year old F presents today with right flank pain and right lower abdominal pain. Patient has been receiving outpatient treatment for UTI, but she reports no improvement of her symptoms. Patient ranks her pain 9 out of 10. Patient denies fever, chills, nausea, vomiting. Patient reports burning with urination and diarrhea over the past few days. Patient has a medical history that includes depression, hypertension, diabetes type 2, asthma. Patient CT in ER negative for acute findings. Patient is currently in ER sittin g in bed eating a sandwich. Patient labs showed normal white blood cell count but a lactic acid 3.2 with repeat level 2.5. Patient blood sugar also elevated at 300. Urine culture and blood culture sent. Past Medical History Past Medical History (Chronic Problems): Chronic Problems (Last Reviewed 02/11/21 @ 22:37 by PRABHU Greer) Depression (Chronic) Hypertension (Chronic) Asthma (Chronic) Diabetes mellitus, type 2 (Chronic) Morbid obesity with BMI of 60.0-69.9, adult (Chronic) Medical History: Medical History (Last Reviewed 02/11/21 @ 22:37 by PRABHU Greer) Asthma J45.909 Back pain M54.9 Fatigue R53.83 Neck pain M54.2 Severe headache R51 Shortness of breath R06.02 Hypertension I10 Allergies bee pollen Allergy (Verified 02/11/21 15:32) Hives codeine Allergy (Verified 02/11/21 15:32) Hives fluticasone [From Advair Diskus] Allergy (Verified 02/11/21 15:32) Hives mushroom Allergy (Verified 02/11/21 15:32) Hives salmeterol [From Advair Diskus] Allergy (Verified 02/11/21 15:32) Hives sucralfate [From Carafate] Allergy (Verified 02/11/21 15:32) Hives Home Medications: Ambulatory Orders Medication Instructions Recorded Albuterol IH (ProAir) [Proair Hfa 1 - 2 puff INHALATION Q4H PRN PRN 08/01/19 (SP)Vent Pts] Glimepiride [Amaryl] 4 mg PO DAILY 08/01/19 Hydrochlorothiazide [Hctz] 25 mg PO DAILY 08/01/19 Ipratropium [Atrovent (SP)] 2 puff INHALATION DAILY 08/01/19 Losartan Potassium [Cozaar] 100 mg PO DAILY 08/01/19 Metformin HCl 1,000 mg PO BID 08/01/19 Ondansetron [Zofran Odt] 4 mg PO Q8H PRN PRN #5 tab 10/05/19 Promethazine HCl 25 mg PO Q8H PRN PRN #20 tab 12/31/20 Bupropion HCl [Bupropion Xl] 150 mg PO DAILY 02/11/21 Escitalopram Oxalate [Lexapro] 10 mg PO DAILY 02/11/21 Montelukast [Singulair] 10 mg PO DAILY 02/11/21 Pantoprazole Sodium 40 mg PO DAILY 02/11/21 Sitagliptin Phosphate [Januvia] 100 mg PO DAILY 02/11/21 cycloBENZAPRine HCl 10 mg PO TID PRN 02/11/21 [Cyclobenzaprine HCl] Surgical History: noncontributory, cholecystectomy Lives: Spouse/ Significant Other Smoking Status: Never smoker Alcohol: None Drugs: None - *Family History Maternal History Items: No pertinent history Paternal History Items: No pertinent history Review of Systems Constitutional: Denies: Chills, Fever, Weight Change HEENT: Denies: Head Aches, Sinus Congestion, Sinus Drainage Cardiovascular: Denies: Chest Pain, Palpitations Respiratory: Denies: Cough, Shortness of breath at rest, Sputum production Gastrointestinal: Denies: Abdominal Pain, Nausea, Vomiting Genitourinary: Reports: Dysuria, Frequency, Urgency, - - Flank pain right Musculoskeletal: Denies: Joint Pain, Joint Tenderness Skin: Denies: Rash, Wounds Neurological: Denies: Numbness, Tingling, Focal weakness Psychiatric: Denies: Anxiety, Depression, Homicidal Ideations, Suicidal Ideations Hematologic/ Lymphatic: Denies: Easy Bruising, Easy Bleeding VTE Information - Inpt Only VTE Present on Admission: No VTE Mechan Device Prophylaxis: None VTE Pharm Prophylaxis ordered?: No Patient Problems: Active and Suspected Problems (Last Reviewed 02/11/21 @ 22:37 by Abbey Barroso NP-C) Pyelonephritis (Suspected) Lactic acidosis (Acute) - Physical Exam Vitals/I&O's: Vital Signs Temp Pulse Resp BP Pulse Ox 99.1 F 115 H 15 166/112 H 96 02/11/21 22:14 02/11/21 22:14 02/11/21 22:14 02/11/21 22:14 02/11/21 22:14 Oxygen Delivery Method Room Air Weight: 461 lb 6.84 oz Body Mass Index (BMI) 66.2 Intake and Output for Last 24 Hours 02/09/21 02/10/21 02/11/21 23:59 23:59 23:59 Intake Total 2049 Balance 2049 General: Alert, Oriented x3, Cooperative HEENT: Atraumatic, PERRLA, EOMI, Normocephalic Neck: Supple, No JVD, Negative Carotid Bruits Lungs: Clear to auscultation, Normal air movement Cardiovascular: Regular rate, Regular Rhythm, Normal S1, Normal S2, No murmurs, Tachycardic Abdomen: Bowel Sounds Present, Soft, Non Tender Extremities: No edema, Capillary Refill Less than 3 Seconds Skin: No rashes, No breakdown Musculoskeletal: No Tenderness to Palpation of Joints or Extremities Neurological: Cranial nerves II-XII grossly intact Psych/Mental Status: Normal Affect, Appropriate Laboratory Results 02/11/21 16:15: WBC 10.6, RBC 4.97, Hgb 13.7, Hct 40.4, MCV 81.3, MCH 27.6, MCHC 33.9, RDW Std Deviation 40.6, RDW Coeff of Solo 14.1, Plt Count 329, MPV 10.2, Immature Gran % (Auto) 0.800, Neut % (Auto) 70.3 H, Lymph % (Auto) 18.3 L, [place] % (Auto) 7.6, Eos % (Auto) 2.5, Baso % (Auto) 0.5, Absolute Neuts (auto) 7.5, Absolute Lymphs (auto) 1.94, Nucleated RBC % 0 02/11/21 16:15: Sodium 133 L, Potassium 3.7, Chloride 99, Carbon Dioxide 28.0, Anion Gap 6, BUN 10, Creatinine 0.91, Estim Creat Clear Calc 98.64, Est GFR (MDRD) Af Amer 94, Est GFR (MDRD) Non-Af 78, BUN/Creatinine Ratio 11.0, Glucose 309 H, Calcium 9.2, Total Bilirubin 0.50, AST 35, ALT 45, Alkaline Phosphatase 116, Total Protein 7.6, Albumin 3.3, Globulin 4.3 H, Albumin/Globulin Ratio 0.8 L 02/11/21 16:15: Lactic Acid 3.2 H* 02/11/21 16:35: Urine Color Yellow, Urine Clarity Clear, Urine pH 6.0, Ur Specific [place] 1.020, Urine Protein 30 H, Urine Glucose (UA) 100 H, Urine Ketones Negative, Urine Occult Blood 50 H, Urine Nitrite Negative, Urine Bilirubin Negative, Urine Urobilinogen Normal, Ur Leukocyte Esterase 500 H, Urine RBC 5-10 SEEN, Urine WBC 5-10 SEEN, Ur Squamous Epith Cells 10-25 SEEN, Urine Bacteria 0 SEEN, Urine Mucus 0 SEEN, Urine Test Negative 02/11/21 19:00: Lactic Acid 2.5 H* Current Medications Sodium Chloride () 1,000 mls @ 200 mls/hr IV .Q5H DAJUAN Last Admin: 02/11/21 22:13 Dose: 200 mls/hr Documented by: Assessment/Plan All Active Problems (Last Reviewed 02/11/21 @ 22:37 by Abbey Barroso, CHUCKING AND BORING MACHINE OPERATOR-C) Lactic acidosis (Acute) 1. Urinary tract infection -Patient has not been on outpatient treatment of Keflex, no improvement of symptoms. -To [facility] for observation -IV Zosyn ordered -Urine culture and blood cultures obtained, pending. -IV fluids ordered, normal saline 100 ml/hour -CT negative for acute findings. -As needed Toradol ordered for pain. 2. Lactic acidosis -Continue IV fluids 3. Hypertension -Continue home regimen hydrochlorothiazide, losartan. 4. Diabetes mellitus type 2 -Continue Metformin, glimepiride, sitagliptin. AC at bedtime blood sugars with sliding scale insulin ordered. 5. Depression -Continue escitalopram and bupropion 6. Asthma -As needed duoneb ordered 7. Morbid obesity with BMI of 60-69.9, adult -Lifestyle modifications discussed. DVT prophylaxis-not indicated This patient was seen by PRABHU Greer under the supervision of Dr. Hyde <Colten Hyde - Last Filed: 02/11/21 23:12> History of Present Illness The patient is a 30 year old F [] Past Medical History Medical History: Medical History (Last Reviewed 02/11/21 @ 22:37 by PRABHU Greer) Asthma J45.909 Back pain M54.9 Fatigue R53.83 Neck pain M54.2 Severe headache R51 Shortness of breath R06.02 Hypertension I10 Allergies bee pollen Allergy (Verified 02/11/21 15:32) Hives codeine Allergy (Verified 02/11/21 15:32) Hives fluticasone [From Advair Diskus] Allergy (Verified 02/11/21 15:32) Hives mushroom Allergy (Verified 02/11/21 15:32) Hives salmeterol [From Advair Diskus] Allergy (Verified 02/11/21 15:32) Hives sucralfate [From Carafate] Allergy (Verified 02/11/21 15:32) Hives - Physical Exam Vitals/I&O's: Vital Signs Temp Pulse Resp BP Pulse Ox 99.1 F 115 H 15 166/112 H 96 02/11/21 22:14 02/11/21 22:14 02/11/21 22:14 02/11/21 22:14 02/11/21 22:14 Oxygen Delivery Method Room Air Weight: 461 lb 6.84 oz Body Mass Index (BMI) 66.2 Intake and Output for Last 24 Hours 02/09/21 02/10/21 02/11/21 23:59 23:59 23:59 Intake Total 2049 Balance 2049 Laboratory Results 02/11/21 16:15: WBC 10.6, RBC 4.97, Hgb 13.7, Hct 40.4, MCV 81.3, MCH 27.6, MCHC 33.9, RDW Std Deviation 40.6, RDW Coeff of Solo 14.1, Plt Count 329, MPV 10.2, Immature Gran % (Auto) 0.800, Neut % (Auto) 70.3 H, Lymph % (Auto) 18.3 L, [place] % (Auto) 7.6, Eos % (Auto) 2.5, Baso % (Auto) 0.5, Absolute Neuts (auto) 7.5, Absolute Lymphs (auto) 1.94, Nucleated RBC % 0 02/11/21 16:15: Sodium 133 L, Potassium 3.7, Chloride 99, Carbon Dioxide 28.0, Anion Gap 6, BUN 10, Creatinine 0.91, Estim Creat Clear Calc 98.64, Est GFR (MDRD) Af Amer 94, Est GFR (MDRD) Non-Af 78, BUN/Creatinine Ratio 11.0, Glucose 309 H, Calcium 9.2, Total Bilirubin 0.50, AST 35, ALT 45, Alkaline Phosphatase 116, Total Protein 7.6, Albumin 3.3, Globulin 4.3 H, Albumin/Globulin Ratio 0.8 L 02/11/21 16:15: Lactic Acid 3.2 H* 02/11/21 16:35: Urine Color Yellow, Urine Clarity Clear, Urine pH 6.0, Ur Specific [place] 1.020, Urine Protein 30 H, Urine Glucose (UA) 100 H, Urine Ketones Negative, Urine Occult Blood 50 H, Urine Nitrite Negative, Urine Bilirubin Negative, Urine Urobilinogen Normal, Ur Leukocyte Esterase 500 H, Urine RBC 5-10 SEEN, Urine WBC 5-10 SEEN, Ur Squamous Epith Cells 10-25 SEEN, Urine Bacteria 0 SEEN, Urine Mucus 0 SEEN, Urine Test Negative 02/11/21 19:00: Lactic Acid 2.5 H* Current Medications Sodium Chloride () 1,000 mls @ 200 mls/hr IV .Q5H DAJUAN Last Admin: 02/11/21 22:13 Dose: 200 mls/hr Documented by: Assessment/Plan Hospitalist note: I am seeing this patient in conjunction with Abbey Barroso. I independently seen and examined the patient. History and physical, laboratory data and imaging studies reviewed and I concur with above admission and treatment plan. Patient presented to the emergency room because of right groin and right flank pain that started about 8 days ago, initially was mild, described as spasm 8-9 out of 10 in severity, goes around her right flank, associated with dysuria and without aggravating or relieving factors. 8 days ago, she went to a different hospital ED, was prescribed Keflex 4 times a day. She has been on Keflex now for 8 days without improvement. She continued to have this right flank and right groin pain which is not improving along with dysuria. She denies fever or chills. She denied nausea or vomiting. In the emergency department, patient was afebrile, tachycardic, blood pressure was elevated, pulse ox was 95% on room air. Her routine blood work was unremarkable apart from her glucose which was 309. LFT was unremarkable. Urinalysis revealed clear urine, negative for nitrite, there was 500 leukocyte esterase, 5-10 WBCs and no bacteria seen. Serum was negative. CT scan abdomen and pelvis with IV contrast done and showed no acute abnormalities, kidneys were normal without evidence of kidney stones, hydronephrosis or hydroureter. Patient remained in the ED for several hours, revealed boluses of IV fluids. Her lactic acid was 3.2 and with IV fluids, came down to 2.5. In spite of aggressive IV fluid treatment, patient remained tachycardic. She is being admitted for acute cystitis with failure of outpatient treatment, lactic acidosis and persistent tachycardia. - Physical Exam General: Alert, Oriented x3, Cooperative, No apparent distress. HEENT: Atraumatic, PERRLA, EOMI. Neck: Supple, No JVD, Negative Carotid Bruits, Trachea Midline, Thyroid Normal. Lungs: Clear to auscultation, Normal air movement, No rhonchi, No wheeze, No rales. Cardiovascular: Regular rate, Regular Rhythm, Normal S1, Normal S2, PMI Normal. Abdomen: Bowel Sounds Present, Soft, minimal suprapubic and right groin tenderness, Non-Distended, No Hepato-splenomegaly, morbidly obese. Extremities: No clubbing, No cyanosis, No edema Skin: No rashes, No breakdown Neurological: Cranial nerves are intact, neuro grossly intact Assessment and plan: #1 acute cystitis: With failure of outpatient treatment. Patient is diabetic as well, has been on 8 days of Keflex 4 times daily without improvement. CT scan abdomen and pelvis reviewed as above. Lactic acid improved with IV fluids but still elevated, patient still tachycardic, afebrile. [facility], [facility] fluids, blood culture, urine culture, start IV Zosyn, IV Toradol as needed for pain, Tylenol as needed, Zofran as needed, repeat lactic acid in 3 hours, repeat CBC and BMP tomorrow morning. #2 lactic acidosis/persistent tachycardia: Without evidence of sepsis or severe sepsis, no leukocytosis, afebrile. Attributed to #1. Plan as above, IV fluids, blood culture, urine culture, IV Zosyn, repeat lactic acid in 3 hours. #3 other chronic medical problems: Stable, continue current medications as above. This note was generated with [employer] dictation software. It may contain incorrect words, spelling, and punctuation that were not noted in checking the note before signing. Inpatient E&M: [id number] Init Hosp L2
[2021-02-11 23:12] LABS: Reflex Lactate? Y
[2021-02-11] MEDS: 0.9% Normal Saline 1,000 ML 100 ML IV (23:37)
[2021-02-12] VITALS (11 sets, daily range): BP systolic 138–156; BP diastolic 90–103; PULSE 85–99; RESP 16–20; TEMP 36.7–37; O2SAT 92–98
[2021-02-12] MEDS: Zolpidem Tartrate 5 MG Tablet PO (00:12)
[2021-02-12] MEDS: Ketorolac 30 MG/ML Syringe IV ×2 (00:12→08:31)
[2021-02-12 00:16] LABS: Bedside Glucose 149 mg/dL (70-110)
[2021-02-12 00:20] LABS: Lactic Acid 1.9 mmol/L (0.4-1.9)
[2021-02-12] MEDS: Nystatin Powder 15gm Bottle 1 APPLIC TOPICAL ×3 (05:11→21:45)
[2021-02-12 06:21] LABS: Absolute Lymphocyte Count 2.14 X10^3/uL (0.83-4.51); Absolute Neutrophil Count 4.9 X10^3/uL (2.0-7.7); Basophil# 0.03 X10^3/uL; Basophil% 0.4 % (0-1); Eosinophil# 0.27 X10^3/uL; Eosinophils% 3.3 % (0-5); Hematocrit 37.3 % (37-47); Hemoglobin 11.9 g/dL (12.0-15.0); Lymphocyte # 2.14 X10^3/ul (4.0); Lymphocyte % 26.3 % (19-41); Mean Corp Hgb Conc 31.9 g/dL (32-36); Mean Corpuscular Hgb 26.9 pg (27.0-32.0); Mean Corpuscular Volume 84.4 fL (81-99); Mean Platelet Vol. 10.2 fl (6.2-12.0); Monocyte# 0.73 X10^3/uL; NRBC Flagged by Analyzer 0 % (0-5); Neutrophil # 4.93 X10^3/uL (2.7-7.7); Neutrophil % 60.4 % (47-70); Platelet Count 286 K/mm3 (150-450); RBC Distribution Width CV 14.3 % (11.6-14.6); RBC Distribution Width SD 43.8 fl (35.1-43.9); Red Blood Count 4.42 M/mm3 (4.2-5.4); White Blood Count 8.2 K/mm3 (4.4-11.0)
[2021-02-12] MEDS: Insulin Lispro 100 UNIT/ML INSULN.PEN SC ×4 (06:21→21:48)
[2021-02-12 06:26] LABS: Bedside Glucose 215 mg/dL (70-110)
[2021-02-12 06:47] LABS: Anion Gap 6 (5-15); BUN 11 mg/dL (7-18); BUN/Creat Ratio 15.9 RATIO (10-20); Calcium,Total 8.4 mg/dL (8.5-10.1); Chloride 102 mmol/L (98-107); Creatinine, Serum 0.69 mg/dL (0.55-1.02); EST Glomerular Filtration Rate 107 mL/min (>60); Est Glom Filt Rate - Afr Amer 129 mL/min (>60); Estimated Creatinine Clearance 130.09 ml/min; Glucose 202 mg/dL (74-106); Potassium 3.2 mmol/L (3.5-5.1); Sodium Level 135 mmol/L (136-145)
[2021-02-12] MEDS: Ipratropium/Albuterol Sulfate 3 ML AMPUL.NEB INHALATION ×3 (06:56→19:12)
--- NOTE | 2021-02-12 07:56 | PCM.PN.HOSP ---
Patient Problems: Active and Suspected Problems (Last Reviewed 02/11/21 @ 22:37 by Abbey Barroso NP-C) Pyelonephritis (Suspected) Lactic acidosis (Acute) Vitals/I&O's: Vital Signs Temp Pulse Resp BP Pulse Ox 98.0 F 93 18 145/90 H 95 02/12/21 05:00 02/12/21 07:46 02/12/21 05:00 02/12/21 05:00 02/12/21 05:00 Oxygen Delivery Method Room Air Weight: 463 lb 13.641 oz Body Mass Index (BMI) 66.5 Intake and Output for Last 24 Hours 02/10/21 02/11/21 02/12/21 23:59 23:59 23:59 Intake Total 2323.33 / 2323.33 Output Total 150 / 150 Balance 2323.33 / 2323.33 -150 / -150 Laboratory Results 02/11/21 16:15: WBC 10.6, RBC 4.97, Hgb 13.7, Hct 40.4, MCV 81.3, MCH 27.6, MCHC 33.9, RDW Std Deviation 40.6, RDW Coeff of Solo 14.1, Plt Count 329, MPV 10.2, Immature Gran % (Auto) 0.800, Neut % (Auto) 70.3 H, Lymph % (Auto) 18.3 L, [place] % (Auto) 7.6, Eos % (Auto) 2.5, Baso % (Auto) 0.5, Absolute Neuts (auto) 7.5, Absolute Lymphs (auto) 1.94, Nucleated RBC % 0 02/11/21 16:15: Sodium 133 L, Potassium 3.7, Chloride 99, Carbon Dioxide 28.0, Anion Gap 6, BUN 10, Creatinine 0.91, Estim Creat Clear Calc 98.64, Est GFR (MDRD) Af Amer 94, Est GFR (MDRD) Non-Af 78, BUN/Creatinine Ratio 11.0, Glucose 309 H, Calcium 9.2, Total Bilirubin 0.50, AST 35, ALT 45, Alkaline Phosphatase 116, Total Protein 7.6, Albumin 3.3, Globulin 4.3 H, Albumin/Globulin Ratio 0.8 L 02/11/21 16:15: Lactic Acid 3.2 H* 02/11/21 16:35: Urine Color Yellow, Urine Clarity Clear, Urine pH 6.0, Ur Specific [place] 1.020, Urine Protein 30 H, Urine Glucose (UA) 100 H, Urine Ketones Negative, Urine Occult Blood 50 H, Urine Nitrite Negative, Urine Bilirubin Negative, Urine Urobilinogen Normal, Ur Leukocyte Esterase 500 H, Urine RBC 5-10 SEEN, Urine WBC 5-10 SEEN, Ur Squamous Epith Cells 10-25 SEEN, Urine Bacteria 0 SEEN, Urine Mucus 0 SEEN, Urine Test Negative 02/11/21 19:00: Lactic Acid 2.5 H* 02/11/21 23:45: Lactic Acid 1.9 02/11/21 23:58: POC Glucose 149 H 02/12/21 05:46: WBC 8.2, RBC 4.42, Hgb 11.9 L, Hct 37.3, MCV 84.4, MCH 26.9 L, MCHC 31.9 L D, RDW Std Deviation 43.8, RDW Coeff of Solo 14.3, Plt Count 286, MPV 10.2, Immature Gran % (Auto) 0.600, Neut % (Auto) 60.4, Lymph % (Auto) 26.3, [place] % (Auto) 9.0, Eos % (Auto) 3.3, Baso % (Auto) 0.4, Absolute Neuts (auto) 4.9, Absolute Lymphs (auto) 2.14, Nucleated RBC % 0 02/12/21 05:46: Sodium 135 L, Potassium 3.2 L, Chloride 102, Carbon Dioxide 27.0, Anion Gap 6, BUN 11, Creatinine 0.69, Estim Creat Clear Calc 130.09, Est GFR (MDRD) Af Amer 129, Est GFR (MDRD) Non-Af 107, BUN/Creatinine Ratio 15.9, Glucose 202 H, Calcium 8.4 L 02/12/21 06:17: POC Glucose 215 H Current Medications Acetaminophen (Acetaminophen 325 Mg Tablet) 650 mg PO Q6H PRN PRN PRN Reason: Pain Score 1-10/Temp > 100.7 F Albuterol/Ipratropium (Ipratropium/Albuterol Sulfate 3 Ml Ampul.Neb) 3 ml INHALATION Q6H.RT DAJUAN Last Admin: 02/12/21 06:56 Dose: 3 ml Documented by: Bupropion HCl (Bupropion (Xl) 150 Mg Tablet.Xl) 150 mg PO DAILY [facility] Calamine/Phenol (Menthol/Lanolin/Calamine/Znox 113 Gm Tube) 1 applic TOPICAL BID [facility]; Protocol Cyclobenzaprine HCl (Cyclobenzaprine Hcl 10 Mg Tablet) 10 mg PO TID PRN PRN PRN Reason: MUSCLE SPASM Escitalopram Oxalate (Escitalopram Oxalate 10 Mg Tablet) 10 mg PO DAILY [facility] Glimepiride (Glimepiride 4 Mg Tablet) 4 mg PO DAILY [facility] Hydralazine HCl (Hydralazine 20 Mg/Ml Vial) 10 mg IV Q6H PRN PRN PRN Reason: for SBP>160 Hydrochlorothiazide (Hydrochlorothiazide 25 Mg Tablet) 25 mg PO DAILY [facility] Sodium Chloride () 1,000 mls @ 100 mls/hr IV .Q10H [facility] Last Admin: 02/11/21 23:37 Dose: 100 mls/hr Documented by: Piperacillin Sod/Tazobactam (Sod 3.375 gm/ Sodium Chloride) 50 mls @ 12.5 mls/hr IV Q8 [facility] Last Admin: 02/12/21 05:10 Dose: 12.5 mls/hr Documented by: Sodium Chloride () 250 mls @ 15 mls/hr IV .[id number] PRN PRN Reason: Saline Flush Sodium Chloride () 250 mls @ 15 mls/hr IV .[id number] PRN PRN Reason: Additional IVPB Infusion Insulin Human Lispro (Insulin Lispro 100 Unit/Ml Insuln.Pen) 0 unit SC ACHS [facility]; Protocol Last Admin: 02/12/21 06:21 Dose: 4 u Documented by: Ketorolac Tromethamine (Ketorolac 30 Mg/Ml Syringe) 30 mg IV Q8H PRN PRN PRN Reason: Pain Score 6-10 Stop: 02/16/21 23:26 Last Admin: 02/12/21 00:12 Dose: 30 mg Documented by: Linagliptin (Linagliptin 5 Mg Tablet) 5 mg PO DAILY [facility] Losartan Potassium (Losartan Potassium 100 Mg Tablet) 100 mg PO DAILY [facility] Metformin HCl (Metformin Hcl 500 Mg Tablet) 1,000 mg PO BIDCM [facility] Montelukast Sodium (Montelukast 10 Mg Tablet) 10 mg PO DAILY [facility] Nystatin (Nystatin Powder 15gm Bottle) 1 applic TOPICAL TID [facility]; Protocol Last Admin: 02/12/21 05:11 Dose: 1 applic Documented by: Ondansetron HCl (Ondansetron 4 Mg/2 Ml Vial) 4 mg IV Q8H PRN PRN PRN Reason: NAUSEA/VOMITING Pantoprazole Sodium (Pantoprazole Sodium 40 Mg Tablet) 40 mg PO DAILY DAJUAN Senna/Docusate Sodium (Senna/Docusate Sodium 1 Tablet) 2 tablet PO BID PRN PRN PRN Reason: Constipation Sodium Chloride (0.9% Saline Lock 10 Ml Syringe) 10 - 40 ml IV UD PRN PRN Reason: SALINE FLUSH Zolpidem Tartrate (Zolpidem Tartrate 5 Mg Tablet) 5 mg PO QHS PRN PRN PRN Reason: INSOMNIA Last Admin: 02/12/21 00:12 Dose: 5 mg Documented by: STROKE Vital Signs/Narrative: Vital Signs Temp Pulse Resp BP Pulse Ox 02/12/21 07:46 93 02/12/21 05:00 98.0 F 88 18 145/90 H 95 Medical Necessity - Tobacco Use Smoking Status: Never smoker Assessment/Plan All Active Problems (Last Reviewed 02/11/21 @ 22:37 by Abbey Barroso, ELECTRICAL APPLIANCE REPAIRER-C) Lactic acidosis (Acute) Assessment and plan: #1 Severe sepsis with complicated acute cystitis. failed outpatient Keflex: Patient failed 8 days of outpatient Keflex. CT abdomen no acute intra-abdominal abnormality. Lactic acid improved with IV fluid rehydration. On IV Zosyn. #2 lactic acidosis/persistent tachycardia: Without evidence of sepsis or severe sepsis, no leukocytosis, afebrile. Attributed to #1. Plan as above, IV fluids, blood culture, urine culture, IV Zosyn, repeat lactic acid in 3 hours. #3 Diabetes mellitus type 2: 4. Hypertension: 5. Other chronic medical problems include chronic stable asthma, depression, morbid obesity with BMI 66.6 kg/m? VTE prophylaxis: Moderate risk due to morbid obesity: On Lovenox 40 mg subcu daily
[2021-02-12] MEDS: 0.9% Saline Lock 10 ML Syringe IV ×2 (08:31→13:59)
[2021-02-12] MEDS: Potassium Chloride Oral Tablet 20 MEQ 40 MEQ PO ×2 (08:39→12:25)
--- NOTE | 2021-02-12 09:27 | NURSING ---
wound photo: right medial heel
--- NOTE | 2021-02-12 09:43 | CASEMGMT ---
Pt screened using [facility] Palliative Care Tool. Pt did not meet criteia.
[2021-02-12] MEDS: Losartan Potassium 100 MG Tablet PO (10:24)
[2021-02-12] MEDS: Menthol/Lanolin/Calamine/Znox 113 GM Tube 1 APPLIC TOPICAL ×2 (10:24→21:47)
[2021-02-12] MEDS: Pantoprazole Sodium 40 MG Tablet PO (10:25)
[2021-02-12] MEDS: hydroCHLOROthiazide 25 MG Tablet PO (10:25)
[2021-02-12] MEDS: Escitalopram Oxalate 10 MG Tablet PO (10:25)
[2021-02-12] MEDS: buPROPion (XL) 150 MG TABLET.XL PO (10:25)
[2021-02-12] MEDS: Montelukast 10 MG Tablet PO (10:25)
[2021-02-12] MEDS: Senna/Docusate Sodium 1 Tablet 2 TABLET PO (10:28)
--- NOTE | 2021-02-12 10:28 | PCM.PROGNOTE ---
<Becka Watt SILVERSMITH APPRENTICE - Last Filed: 02/12/21 10:43> Patient Problems: Active and Suspected Problems (Last Reviewed 02/11/21 @ 22:37 by Abbey Barroso NP-C) Pyelonephritis (Suspected) Lactic acidosis (Acute) Subjective: Patient seen and examined. Reports urinary symptoms and suprapubic pain improved. Denies fever, chills. Awaiting urine culture. - Physical Exam Vitals/I&O's: Vital Signs Temp Pulse Resp BP Pulse Ox 98.2 F 89 18 151/98 H 95 02/12/21 08:15 02/12/21 08:15 02/12/21 08:15 02/12/21 08:15 02/12/21 08:15 Oxygen Delivery Method Room Air Weight: 463 lb 13.641 oz Body Mass Index (BMI) 66.5 Intake and Output for Last 24 Hours 02/10/21 02/11/21 02/12/21 23:59 23:59 23:59 Intake Total 2323.33 / 2323.33 Output Total 150 / 150 Balance 2323.33 / 2323.33 -150 / -150 General: Alert, Oriented x3, Cooperative HEENT: Atraumatic, PERRLA, EOMI, Normocephalic Neck: Supple, No JVD, Negative Carotid Bruits Lungs: Clear to auscultation, Normal air movement Cardiovascular: Regular rate, No murmurs Abdomen: Bowel Sounds Present, Soft, Non Tender, Non-Distended, Obese Extremities: No clubbing, No cyanosis, No edema, Capillary Refill Less than 3 Seconds Skin: No rashes, No breakdown Musculoskeletal: No Tenderness to Palpation of Joints or Extremities Neurological: Cranial nerves II-XII grossly intact, Neuro grossly intact Psych/Mental Status: Normal Affect, Appropriate Microbiology Past 72 Hours 02/11/21 16:35 Urine, Clean Catch Urine Culture - Preliminary GPC Poss Enterococcus sp GNR lactose hand cell tuber Laboratory Results 02/11/21 16:15: WBC 10.6, RBC 4.97, Hgb 13.7, Hct 40.4, MCV 81.3, MCH 27.6, MCHC 33.9, RDW Std Deviation 40.6, RDW Coeff of Solo 14.1, Plt Count 329, MPV 10.2, Immature Gran % (Auto) 0.800, Neut % (Auto) 70.3 H, Lymph % (Auto) 18.3 L, [place] % (Auto) 7.6, Eos % (Auto) 2.5, Baso % (Auto) 0.5, Absolute Neuts (auto) 7.5, Absolute Lymphs (auto) 1.94, Nucleated RBC % 0 02/11/21 16:15: Sodium 133 L, Potassium 3.7, Chloride 99, Carbon Dioxide 28.0, Anion Gap 6, BUN 10, Creatinine 0.91, Estim Creat Clear Calc 98.64, Est GFR (MDRD) Af Amer 94, Est GFR (MDRD) Non-Af 78, BUN/Creatinine Ratio 11.0, Glucose 309 H, Calcium 9.2, Total Bilirubin 0.50, AST 35, ALT 45, Alkaline Phosphatase 116, Total Protein 7.6, Albumin 3.3, Globulin 4.3 H, Albumin/Globulin Ratio 0.8 L 02/11/21 16:15: Lactic Acid 3.2 H* 02/11/21 16:35: Urine Color Yellow, Urine Clarity Clear, Urine pH 6.0, Ur Specific [place] 1.020, Urine Protein 30 H, Urine Glucose (UA) 100 H, Urine Ketones Negative, Urine Occult Blood 50 H, Urine Nitrite Negative, Urine Bilirubin Negative, Urine Urobilinogen Normal, Ur Leukocyte Esterase 500 H, Urine RBC 5-10 SEEN, Urine WBC 5-10 SEEN, Ur Squamous Epith Cells 10-25 SEEN, Urine Bacteria 0 SEEN, Urine Mucus 0 SEEN, Urine Test Negative 02/11/21 19:00: Lactic Acid 2.5 H* 02/11/21 23:45: Lactic Acid 1.9 02/11/21 23:58: POC Glucose 149 H 02/12/21 05:46: WBC 8.2, RBC 4.42, Hgb 11.9 L, Hct 37.3, MCV 84.4, MCH 26.9 L, MCHC 31.9 L D, RDW Std Deviation 43.8, RDW Coeff of Solo 14.3, Plt Count 286, MPV 10.2, Immature Gran % (Auto) 0.600, Neut % (Auto) 60.4, Lymph % (Auto) 26.3, [place] % (Auto) 9.0, Eos % (Auto) 3.3, Baso % (Auto) 0.4, Absolute Neuts (auto) 4.9, Absolute Lymphs (auto) 2.14, Nucleated RBC % 0 02/12/21 05:46: Sodium 135 L, Potassium 3.2 L, Chloride 102, Carbon Dioxide 27.0, Anion Gap 6, BUN 11, Creatinine 0.69, Estim Creat Clear Calc 130.09, Est GFR (MDRD) Af Amer 129, Est GFR (MDRD) Non-Af 107, BUN/Creatinine Ratio 15.9, Glucose 202 H, Calcium 8.4 L 02/12/21 06:17: POC Glucose 215 H Current Medications Acetaminophen (Acetaminophen 325 Mg Tablet) 650 mg PO Q6H PRN PRN PRN Reason: Pain Score 1-10/Temp > 100.7 F Albuterol/Ipratropium (Ipratropium/Albuterol Sulfate 3 Ml Ampul.Neb) 3 ml INHALATION Q6H.RT [facility] Last Admin: 02/12/21 06:56 Dose: 3 ml Documented by: Bupropion HCl (Bupropion (Xl) 150 Mg Tablet.Xl) 150 mg PO DAILY [facility] Calamine/Phenol (Menthol/Lanolin/Calamine/Znox 113 Gm Tube) 1 applic TOPICAL BID [facility]; Protocol Cyclobenzaprine HCl (Cyclobenzaprine Hcl 10 Mg Tablet) 10 mg PO TID PRN PRN PRN Reason: MUSCLE SPASM Enoxaparin Sodium (Enoxaparin 40 Mg/0.4 Ml Syringe) 40 mg SC DAILY [facility] Escitalopram Oxalate (Escitalopram Oxalate 10 Mg Tablet) 10 mg PO DAILY [facility] Hydralazine HCl (Hydralazine 20 Mg/Ml Vial) 10 mg IV Q6H PRN PRN PRN Reason: for SBP>160 Hydrochlorothiazide (Hydrochlorothiazide 25 Mg Tablet) 25 mg PO DAILY [facility] Piperacillin Sod/Tazobactam (Sod 3.375 gm/ Sodium Chloride) 50 mls @ 12.5 mls/hr IV Q8 [facility] Last Admin: 02/12/21 05:10 Dose: 12.5 mls/hr Documented by: Sodium Chloride () 250 mls @ 15 mls/hr IV .[id number] PRN PRN Reason: Saline Flush Sodium Chloride () 250 mls @ 15 mls/hr IV .[id number] PRN PRN Reason: Additional IVPB Infusion Insulin Glargine (Insulin Glargine 100 Units/Ml Pen) 10 units SC DAILY [facility] Insulin Human Lispro (Insulin Lispro 100 Unit/Ml Insuln.Pen) 0 unit SC ACHS [facility]; Protocol Last Admin: 02/12/21 06:21 Dose: 4 u Documented by: Insulin Human Lispro (Insulin Lispro 100 Unit/Ml Insuln.Pen) 8 unit SC TIDAC [facility] Ketorolac Tromethamine (Ketorolac 30 Mg/Ml Syringe) 30 mg IV Q8H PRN PRN PRN Reason: Pain Score 6-10 Stop: 02/13/21 23:26 Last Admin: 02/12/21 08:31 Dose: 30 mg Documented by: Losartan Potassium (Losartan Potassium 100 Mg Tablet) 100 mg PO DAILY [facility] Montelukast Sodium (Montelukast 10 Mg Tablet) 10 mg PO DAILY [facility] Nystatin (Nystatin Powder 15gm Bottle) 1 applic TOPICAL TID [facility]; Protocol Last Admin: 02/12/21 05:11 Dose: 1 applic Documented by: Ondansetron HCl (Ondansetron 4 Mg/2 Ml Vial) 4 mg IV Q8H PRN PRN PRN Reason: NAUSEA/VOMITING Pantoprazole Sodium (Pantoprazole Sodium 40 Mg Tablet) 40 mg PO DAILY [facility] Potassium Chloride (Potassium Chloride Oral Tablet 20 Meq) 40 meq PO Q3H [facility] Stop: 02/12/21 11:31 Last Admin: 02/12/21 08:39 Dose: 40 meq Documented by: Senna/Docusate Sodium (Senna/Docusate Sodium 1 Tablet) 2 tablet PO BID [facility] Sodium Chloride (0.9% Saline Lock 10 Ml Syringe) 10 - 40 ml IV UD PRN PRN Reason: SALINE FLUSH Last Admin: 02/12/21 08:31 Dose: 10 ml Documented by: Zolpidem Tartrate (Zolpidem Tartrate 5 Mg Tablet) 5 mg PO QHS PRN PRN PRN Reason: INSOMNIA Last Admin: 02/12/21 00:12 Dose: 5 mg Documented by: Medical Necessity - Tobacco Use Smoking Status: Never smoker Assessment/Plan All Active Problems (Last Reviewed 02/11/21 @ 22:37 by PRABHU Greer) Lactic acidosis (Acute) 1. Acute complicated cystitis, failed outpatient treatment-CT of abdomen without acute process. IV Zosyn pending urine culture. Blood cultures pending. 2. Lactic acidosis-no evidence of sepsis or severe sepsis. Lactic acidosis resolved. 3. Type 2 diabetes mellitus-sliding scale insulin. On metformin, Januvia, glimepiride. Check hemoglobin A1c. 4. Hypertension-on hydrochlorothiazide, losartan. 5. Chronic intermittent asthma 6. Depression-on escitalopram, bupropion. 7. Morbid obesity-encouraged diet and lifestyle modifications. DVT prophylaxis-Lovenox subcu This patient was seen by PRABHU Silva under the supervision of Dr. Ashraf. <Junito Ashraf - Last Filed: 02/12/21 14:28> Objective: Patient has history of recurrent UTI, this is the third time in last 4 months. Patient had Levaquin and Cipro and recently Keflex. Morbid obesity. Denies history of pyelonephritis, kidney stone, ureteral catheterization/instrumentation. Denies any snoring/frequent nighttime awakening. Patient has dysuria which is improving and suprapubic discomfort Physical Exam: General: Alert, Oriented x3, Cooperative, morbid obesity 66.6 kg/m? HEENT: Atraumatic, PERRLA, EOMI, Normocephalic Oral: No Gingival or Mucosal Lesions/ Ulcerations Neck: Supple, No JVD, Negative Carotid Bruits Lungs: Air entry diminished in bilateral lung bases. No crepitation/rhonchi Cardiovascular: Regular rate, Regular Rhythm, Normal S1, Normal S2, No murmurs Abdomen: Bowel Sounds Present, Soft, Non Tender, Non-Distended : No renal angle tenderness. Mild suprapubic tenderness. Extremities: No edema, Capillary Refill Less than 3 Seconds Skin: No rashes, No breakdown Musculoskeletal: No Tenderness to Palpation of Joints or Extremities Neurological: Cranial nerves II-XII grossly intact, Deep Tendon Reflexes 2+/4 and Symmetrical, Neuro grossly intact Psych/Mental Status: Normal Affect, Appropriate. - Physical Exam Vitals/I&O's: Vital Signs Temp Pulse Resp BP Pulse Ox 98.2 F 91 18 138/103 H 95 02/12/21 14:06 02/12/21 14:06 02/12/21 14:06 02/12/21 14:06 02/12/21 14:06 Oxygen Delivery Method Room Air Weight: 463 lb 13.641 oz Body Mass Index (BMI) 66.5 Intake and Output for Last 24 Hours 02/10/21 02/11/21 02/12/21 23:59 23:59 23:59 Intake Total 2323.33 / 2323.33 1600 / 1600 Output Total 350 / 350 Balance 2323.33 / 2323.33 1250 / 1250 Microbiology Past 72 Hours 02/11/21 16:35 Urine, Clean Catch Urine Culture - Preliminary GPC Poss Enterococcus sp GNR lactose hand cell tuber Laboratory Results 02/11/21 16:15: WBC 10.6, RBC 4.97, Hgb 13.7, Hct 40.4, MCV 81.3, MCH 27.6, MCHC 33.9, RDW Std Deviation 40.6, RDW Coeff of Solo 14.1, Plt Count 329, MPV 10.2, Immature Gran % (Auto) 0.800, Neut % (Auto) 70.3 H, Lymph % (Auto) 18.3 L, [place] % (Auto) 7.6, Eos % (Auto) 2.5, Baso % (Auto) 0.5, Absolute Neuts (auto) 7.5, Absolute Lymphs (auto) 1.94, Nucleated RBC % 0 02/11/21 16:15: Sodium 133 L, Potassium 3.7, Chloride 99, Carbon Dioxide 28.0, Anion Gap 6, BUN 10, Creatinine 0.91, Estim Creat Clear Calc 98.64, Est GFR (MDRD) Af Amer 94, Est GFR (MDRD) Non-Af 78, BUN/Creatinine Ratio 11.0, Glucose 309 H, Calcium 9.2, Total Bilirubin 0.50, AST 35, ALT 45, Alkaline Phosphatase 116, Total Protein 7.6, Albumin 3.3, Globulin 4.3 H, Albumin/Globulin Ratio 0.8 L 02/11/21 16:15: Lactic Acid 3.2 H* 02/11/21 16:35: Urine Color Yellow, Urine Clarity Clear, Urine pH 6.0, Ur Specific [place] 1.020, Urine Protein 30 H, Urine Glucose (UA) 100 H, Urine Ketones Negative, Urine Occult Blood 50 H, Urine Nitrite Negative, Urine Bilirubin Negative, Urine Urobilinogen Normal, Ur Leukocyte Esterase 500 H, Urine RBC 5-10 SEEN, Urine WBC 5-10 SEEN, Ur Squamous Epith Cells 10-25 SEEN, Urine Bacteria 0 SEEN, Urine Mucus 0 SEEN, Urine Test Negative 02/11/21 19:00: Lactic Acid 2.5 H* 02/11/21 23:45: Lactic Acid 1.9 02/11/21 23:58: POC Glucose 149 H 02/12/21 05:46: WBC 8.2, RBC 4.42, Hgb 11.9 L, Hct 37.3, MCV 84.4, MCH 26.9 L, MCHC 31.9 L D, RDW Std Deviation 43.8, RDW Coeff of Solo 14.3, Plt Count 286, MPV 10.2, Immature Gran % (Auto) 0.600, Neut % (Auto) 60.4, Lymph % (Auto) 26.3, [place] % (Auto) 9.0, Eos % (Auto) 3.3, Baso % (Auto) 0.4, Absolute Neuts (auto) 4.9, Absolute Lymphs (auto) 2.14, Nucleated RBC % 0 02/12/21 05:46: Sodium 135 L, Potassium 3.2 L, Chloride 102, Carbon Dioxide 27.0, Anion Gap 6, BUN 11, Creatinine 0.69, Estim Creat Clear Calc 130.09, Est GFR (MDRD) Af Amer 129, Est GFR (MDRD) Non-Af 107, BUN/Creatinine Ratio 15.9, Glucose 202 H, Calcium 8.4 L 02/12/21 05:46: Hemoglobin A1c 8.7 H 02/12/21 06:17: POC Glucose 215 H 02/12/21 12:20: POC Glucose 253 H Current Medications Acetaminophen (Acetaminophen 325 Mg Tablet) 650 mg PO Q6H PRN PRN PRN Reason: Pain Score 1-10/Temp > 100.7 F Albuterol/Ipratropium (Ipratropium/Albuterol Sulfate 3 Ml Ampul.Neb) 3 ml INHALATION Q6H.RT [facility] Last Admin: 02/12/21 13:11 Dose: 3 ml Documented by: Bupropion HCl (Bupropion (Xl) 150 Mg Tablet.Xl) 150 mg PO DAILY [facility] Last Admin: 02/12/21 10:25 Dose: 150 mg Documented by: Calamine/Phenol (Menthol/Lanolin/Calamine/Znox 113 Gm Tube) 1 applic TOPICAL BID [facility]; Protocol Last Admin: 02/12/21 10:24 Dose: 1 applic Documented by: Cyclobenzaprine HCl (Cyclobenzaprine Hcl 10 Mg Tablet) 10 mg PO TID PRN PRN PRN Reason: MUSCLE SPASM Enoxaparin Sodium (Enoxaparin 40 Mg/0.4 Ml Syringe) 40 mg SC DAILY [facility] Last Admin: 02/12/21 10:31 Dose: 40 mg Documented by: Escitalopram Oxalate (Escitalopram Oxalate 10 Mg Tablet) 10 mg PO DAILY [facility] Last Admin: 02/12/21 10:25 Dose: 10 mg Documented by: Hydralazine HCl (Hydralazine 20 Mg/Ml Vial) 10 mg IV Q6H PRN PRN PRN Reason: for SBP>160 Hydrochlorothiazide (Hydrochlorothiazide 25 Mg Tablet) 25 mg PO DAILY [facility] Last Admin: 02/12/21 10:25 Dose: 25 mg Documented by: Piperacillin Sod/Tazobactam (Sod 3.375 gm/ Sodium Chloride) 50 mls @ 12.5 mls/hr IV Q8 [facility] Last Admin: 02/12/21 13:59 Dose: 12.5 mls/hr Documented by: Sodium Chloride () 250 mls @ 15 mls/hr IV .[id number] PRN PRN Reason: Saline Flush Sodium Chloride () 250 mls @ 15 mls/hr IV .[id number] PRN PRN Reason: Additional IVPB Infusion Insulin Glargine (Insulin Glargine 100 Units/Ml Pen) 10 units SC DAILY [facility] Last Admin: 02/12/21 10:29 Dose: 10 units Documented by: Insulin Human Lispro (Insulin Lispro 100 Unit/Ml Insuln.Pen) 0 unit SC ACHS [facility]; Protocol Last Admin: 02/12/21 12:23 Dose: 4 u Documented by: Insulin Human Lispro (Insulin Lispro 100 Unit/Ml Insuln.Pen) 8 unit SC TIDAC [facility] Last Admin: 02/12/21 12:22 Dose: 8 units Documented by: Ketorolac Tromethamine (Ketorolac 30 Mg/Ml Syringe) 30 mg IV Q8H PRN PRN PRN Reason: Pain Score 6-10 Stop: 02/13/21 23:26 Last Admin: 02/12/21 08:31 Dose: 30 mg Documented by: Losartan Potassium (Losartan Potassium 100 Mg Tablet) 100 mg PO DAILY [facility] Last Admin: 02/12/21 10:24 Dose: 100 mg Documented by: Montelukast Sodium (Montelukast 10 Mg Tablet) 10 mg PO DAILY [facility] Last Admin: 02/12/21 10:25 Dose: 10 mg Documented by: Nystatin (Nystatin Powder 15gm Bottle) 1 applic TOPICAL TID [facility]; Protocol Last Admin: 02/12/21 13:59 Dose: 1 applic Documented by: Ondansetron HCl (Ondansetron 4 Mg/2 Ml Vial) 4 mg IV Q8H PRN PRN PRN Reason: NAUSEA/VOMITING Pantoprazole Sodium (Pantoprazole Sodium 40 Mg Tablet) 40 mg PO DAILY [facility] Last Admin: 02/12/21 10:25 Dose: 40 mg Documented by: Senna/Docusate Sodium (Senna/Docusate Sodium 1 Tablet) 2 tablet PO BID [facility] Last Admin: 02/12/21 10:28 Dose: 2 tablet Documented by: Sodium Chloride (0.9% Saline Lock 10 Ml Syringe) 10 - 40 ml IV UD PRN PRN Reason: SALINE FLUSH Last Admin: 02/12/21 13:59 Dose: 10 ml Documented by: Zolpidem Tartrate (Zolpidem Tartrate 5 Mg Tablet) 5 mg PO QHS PRN PRN PRN Reason: INSOMNIA Last Admin: 02/12/21 00:12 Dose: 5 mg Documented by: Assessment/Plan This patient was seen in conjunction with Becka DAI. I have independently interviewed and examined the patient and reviewed pertinent history, examination findings, laboratory and plan of management. I have reviewed the note and agree with the documented findings with the few additional points. In brief, the patient is morbid obese Afro-[place] female with history of recurrent UTI and diabetes admitted with due to acute complicated cystitis. Currently on IV Zosyn. She recently had Keflex, Levaquin and Cipro in last 4 months. Denies history of renal angle pain or pyelonephritis. Lactic acidosis improved. Patient did not had fever or chills or leukocytosis or hypotension. Prelim urine culture shows GPC Enterococcus and GNR lactose hand cell tuber, not in pathology creatinine probably due to antibiotic as an outpatient, partially treated UTI/cystitis. Other comorbidities as mentioned above. I have discussed my assessment with Becka DAI and orders have been reviewed. Inpatient E&M: 28949 Subs Hosp L2
[2021-02-12] MEDS: Enoxaparin 40 MG/0.4 ML Syringe SC (10:31)
--- NOTE | 2021-02-12 10:45 | CASEMGMT ---
RN JOSEFINA Face to Face with patient for initial transition planning/care coordination assessment. RN CM introduced self and role at [facility]. Patient lying in bed, alert and oriented. Patient willing to participate in assessment and is able to answer all questions appropriately. Care providers, pharmacy, and demographics verified. Patient wishes to discharge home, denies need for home health at this time. Patient states he has no further needs or concerns at this time. CM to follow for discharge planning needs that may arise. PCP: Sudhakar Specialists: none Preferred Pharmacy: [facility] Insurance: [employer] Prescription Benefit: yes Living Will/HPOA: none LNOK: mother, boyfriend Living Arrangements: Patient lives with boyfriend in a 1st floor apartment with 3 steps and railing to enter the home. Patient states she is independent at home. Transportation: self/boyfriend DME/HHC: Patient states she has a nebulizer and glucometer at home. Patient to denies previous HHC. Disposition Plan: Patient to discharge home with family support and follow-up plans in place. Crystal PEREZ, RN, CM
[2021-02-12 11:15] LABS: Hemoglobin A1c 8.7 % (3.8-5.6)
[2021-02-12] MEDS: Insulin Lispro 100 UNIT/ML INSULN.PEN 8 UNIT SC ×2 (12:22→17:16)
[2021-02-12 12:36] LABS: Bedside Glucose 253 mg/dL (70-110)
[2021-02-12 16:41] LABS: Bedside Glucose 247 mg/dL (70-110)
[2021-02-12 22:15] LABS: Bedside Glucose 247 mg/dL (70-110)
[2021-02-13] MEDS: Ipratropium/Albuterol Sulfate 3 ML AMPUL.NEB INHALATION ×2 (00:16→07:01)
[2021-02-13 00:17] VITALS: PULSE 107; RESP 20
[2021-02-13 04:30] VITALS: BP 144/95; PULSE 108; RESP 18; TEMP 36.6; O2SAT 97
[2021-02-13] MEDS: Acetaminophen 325 MG Tablet 650 MG PO (06:43)
[2021-02-13 06:57] LABS: Anion Gap 2 (5-15); BUN 8 mg/dL (7-18); Chloride 103 mmol/L (98-107); Creatinine, Serum 0.72 mg/dL (0.55-1.02); EST Glomerular Filtration Rate 101 mL/min (>60); Est Glom Filt Rate - Afr Amer 122 mL/min (>60); Estimated Creatinine Clearance 124.67 ml/min; Glucose 228 mg/dL (74-106); Potassium 3.7 mmol/L (3.5-5.1); Sodium Level 133 mmol/L (136-145)
[2021-02-13 07:01] VITALS: PULSE 96; RESP 20; O2SAT 93
[2021-02-13 08:00] LABS: Bedside Glucose 238 mg/dL (70-110)
[2021-02-13 08:30] VITALS: BP 143/105; PULSE 96; RESP 18; TEMP 36.8; O2SAT 97
[2021-02-13] MEDS: Insulin Lispro 100 UNIT/ML INSULN.PEN 8 UNIT SC (08:37)
[2021-02-13] MEDS: Insulin Lispro 100 UNIT/ML INSULN.PEN SC (08:38)
--- NOTE | 2021-02-13 08:53 | DCINST_ITS ---
- Discharge Diagnoses Current Active Problems: Current Active and Chronic Problems (Last Reviewed 02/11/21 @ 22:37 by PRABHU Greer) Lactic acidosis (Acute) Depression (Chronic) Hypertension (Chronic) Asthma (Chronic) Diabetes mellitus, type 2 (Chronic) Morbid obesity with BMI of 60.0-69.9, adult (Chronic) You will use the following diet at home:: Calorie/Carbohydrate Controlled (specify 1200, 1400, etc) - Carb controlled diet, Other - Low-calorie diet advised Your food should be the consistency of: Regular Discharge Activity: May Not Drive - For 1 week. Follow with PCP Weight Bearing Status: Weight bearing as tolerated Call your doctor if you observe: Fever of 101 or Higher, Numbness or Tingling, Change in Color, Inability to urinate, Inability to have a bowel movement, Using more than one pad per hour, Shortness of breath, Dizziness, Fainting spells, Swelling in the ankles, Chest pain, Increased palpitations (irregular heartbeat), Calf discomfort, Uncontrolled pain Allergies/Adverse Reactions: Allergies bee pollen Allergy (Verified 02/11/21 15:32) Hives codeine Allergy (Verified 02/11/21 15:32) Hives fluticasone [From Advair Diskus] Allergy (Verified 02/11/21 15:32) Hives mushroom Allergy (Verified 02/11/21 15:32) Hives salmeterol [From Advair Diskus] Allergy (Verified 02/11/21 15:32) Hives sucralfate [From Carafate] Allergy (Verified 02/11/21 15:32) Hives Medications to take at Discharge Albuterol IH (ProAir) [Proair Hfa] 1 - 2 puff INHALATION Q4H PRN PRN 08/01/19 Glimepiride [Amaryl] 4 mg PO DAILY 08/01/19 Hydrochlorothiazide [Hctz] 25 mg PO DAILY 08/01/19 Ipratropium [Atrovent Inhaler] 2 puff INHALATION DAILY PRN 08/01/19 Losartan Potassium [Cozaar] 100 mg PO DAILY 08/01/19 Ondansetron [Zofran Odt] 4 mg PO Q8H PRN PRN #5 tab 10/05/19 Bupropion HCl [Bupropion Xl] 150 mg PO DAILY 02/11/21 Escitalopram Oxalate [Lexapro] 10 mg PO DAILY 02/11/21 Montelukast [Singulair] 10 mg PO DAILY 02/11/21 Pantoprazole Sodium 40 mg PO DAILY 02/11/21 Sitagliptin Phosphate [Januvia] 100 mg PO DAILY 02/11/21 Amox/Clavulanate Tablet [Augmentin Tablet] 875 mg PO Q12H #11 tab 02/13/21 Metformin HCl 500 mg PO BIDCM #0 02/13/21 Nystatin Powder [Mycostatin Powder] 1 applic TOPICAL TID #1 bottle 02/13/21 The following prescriptions were given: Amox/Clavulanate Tablet [Augmentin Tablet] 875 mg PO Q12H #11 tab Transmission Status: Pending to [employer] [facility] Nystatin Powder [Mycostatin Powder] 1 applic TOPICAL TID #1 bottle Transmission Status: Pending to [employer] [facility] Primary Care Physician: Tyson De La Fuente MD [Primary Care Provider] - Please follow up with your Primary Care Physician in: In 1 to 2 weeks Test Results: Test results from this visit will be discussed in further detail at your follow- up appointment, if applicable. Please Follow Up With: Vu Manuel MD When: Recurrent UTI in 3-4 weeks
--- NOTE | 2021-02-13 08:55 | DS.PCM_ITS ---
Discharge Date and Diagnosis - Problem List Patient Problems: Active and Suspected Problems (Last Reviewed 02/11/21 @ 22:37 by PRABHU Greer) Pyelonephritis (Suspected) Lactic acidosis (Acute) Date of Admission: 02/11/21 Date of Discharge: 02/13/21 - Primary Discharge Diagnosis Acute Problems: Active Problems (Last Reviewed 02/11/21 @ 22:37 by PRABHU Greer) Lactic acidosis (Acute) Suspected Problems: Suspected Problems (Last Reviewed 02/11/21 @ 22:37 by PRABHU Greer) Pyelonephritis (Suspected) - Secondary Discharge Diagnosis Chronic Problems: Chronic Problems (Last Reviewed 02/11/21 @ 22:37 by PRABHU Greer) Depression (Chronic) Hypertension (Chronic) Asthma (Chronic) Diabetes mellitus, type 2 (Chronic) Morbid obesity with BMI of 60.0-69.9, adult (Chronic) Hospital Course and Treatment Consultations 02/12/21 01:05 Consult: Onc/Wound/dispatch manager Routine Comment: Reason for Consult:: R. heel ulcer Comments:: pt. also a diabetic Summary of Care Provided: The patient is a 30 year old F [] Patient Problems: Active and Suspected Problems (Last Reviewed 02/11/21 @ 22:37 by PRABHU Greer) Pyelonephritis (Suspected) Lactic acidosis (Acute) - Physical Exam Vitals/I&O's: Vital Signs Temp Pulse Resp BP Pulse Ox 98.2 F 96 18 143/105 H 97 02/13/21 08:30 02/13/21 08:30 02/13/21 08:30 02/13/21 08:30 02/13/21 08:30 Oxygen Delivery Method Room Air Weight: 463 lb 13.641 oz Body Mass Index (BMI) 66.5 Intake and Output for Last 24 Hours 02/11/21 02/12/21 02/13/21 23:59 23:59 23:59 Intake Total 2323.33 / 2323.33 2300 / 2800 1350 / 1350 Output Total 850 / 2550 2700 / 2700 Balance 2323.33 / 2323.33 1450 / 250 -1350 / -1350 Microbiology Past 72 Hours 02/11/21 16:35 Urine, Clean Catch Urine Culture - Final Enterococcus faecalis Klebsiella pneumoniae sp pneum Laboratory Results 02/12/21 05:46: Hemoglobin A1c 8.7 H 02/12/21 12:20: POC Glucose 253 H 02/12/21 16:32: POC Glucose 247 H 02/12/21 21:39: POC Glucose 247 H 02/13/21 06:15: Sodium 133 L, Potassium 3.7, Chloride 103, Carbon Dioxide 28.0, Anion Gap 2 L, BUN 8, Creatinine 0.72, Estim Creat Clear Calc 124.67, Est GFR (MDRD) Af Amer 122, Est GFR (MDRD) Non-Af 101, BUN/Creatinine Ratio 11.0, Glucose 228 H, Calcium 9.0 02/13/21 07:53: POC Glucose 238 H Current Medications Acetaminophen (Acetaminophen 325 Mg Tablet) 650 mg PO Q6H PRN PRN PRN Reason: Pain Score 1-10/Temp > 100.7 F Last Admin: 02/13/21 06:43 Dose: 650 mg Documented by: Albuterol/Ipratropium (Ipratropium/Albuterol Sulfate 3 Ml Ampul.Neb) 3 ml INHALATION Q6H.RT [facility] Last Admin: 02/13/21 07:01 Dose: 3 ml Documented by: Bupropion HCl (Bupropion (Xl) 150 Mg Tablet.Xl) 150 mg PO DAILY [facility] Last Admin: 02/12/21 10:25 Dose: 150 mg Documented by: Calamine/Phenol (Menthol/Lanolin/Calamine/Znox 113 Gm Tube) 1 applic TOPICAL BID [facility]; Protocol Last Admin: 02/12/21 21:47 Dose: 1 applic Documented by: Cyclobenzaprine HCl (Cyclobenzaprine Hcl 10 Mg Tablet) 10 mg PO TID PRN PRN PRN Reason: MUSCLE SPASM Enoxaparin Sodium (Enoxaparin 40 Mg/0.4 Ml Syringe) 40 mg SC DAILY [facility] Last Admin: 02/12/21 10:31 Dose: 40 mg Documented by: Escitalopram Oxalate (Escitalopram Oxalate 10 Mg Tablet) 10 mg PO DAILY [facility] Last Admin: 02/12/21 10:25 Dose: 10 mg Documented by: Hydralazine HCl (Hydralazine 20 Mg/Ml Vial) 10 mg IV Q6H PRN PRN PRN Reason: for SBP>160 Hydrochlorothiazide (Hydrochlorothiazide 25 Mg Tablet) 25 mg PO DAILY [facility] Last Admin: 02/12/21 10:25 Dose: 25 mg Documented by: Sodium Chloride () 250 mls @ 15 mls/hr IV .[id number] PRN PRN Reason: Saline Flush Sodium Chloride () 250 mls @ 15 mls/hr IV .[id number] PRN PRN Reason: Additional IVPB Infusion Ampicillin Sodium/Sulbactam (Sodium 3 gm/ Sodium Chloride) 112 mls @ 150 mls/hr IV Q6 [facility] Insulin Glargine (Insulin Glargine 100 Units/Ml Pen) 10 units SC DAILY [facility] Last Admin: 02/12/21 10:29 Dose: 10 units Documented by: Insulin Human Lispro (Insulin Lispro 100 Unit/Ml Insuln.Pen) 0 unit SC ACHS [facility]; Protocol Last Admin: 02/13/21 08:38 Dose: 4 u Documented by: Insulin Human Lispro (Insulin Lispro 100 Unit/Ml Insuln.Pen) 8 unit SC TIDAC [facility] Last Admin: 02/13/21 08:37 Dose: 8 units Documented by: Ketorolac Tromethamine (Ketorolac 30 Mg/Ml Syringe) 30 mg IV Q8H PRN PRN PRN Reason: Pain Score 6-10 Stop: 02/13/21 23:26 Last Admin: 02/12/21 08:31 Dose: 30 mg Documented by: Losartan Potassium (Losartan Potassium 100 Mg Tablet) 100 mg PO DAILY [facility] Last Admin: 02/12/21 10:24 Dose: 100 mg Documented by: Montelukast Sodium (Montelukast 10 Mg Tablet) 10 mg PO DAILY [facility] Last Admin: 02/12/21 10:25 Dose: 10 mg Documented by: Nystatin (Nystatin Powder 15gm Bottle) 1 applic TOPICAL TID [facility]; Protocol Last Admin: 02/13/21 05:58 Dose: Not Given Documented by: Ondansetron HCl (Ondansetron 4 Mg/2 Ml Vial) 4 mg IV Q8H PRN PRN PRN Reason: NAUSEA/VOMITING Pantoprazole Sodium (Pantoprazole Sodium 40 Mg Tablet) 40 mg PO DAILY [facility] Last Admin: 02/12/21 10:25 Dose: 40 mg Documented by: Senna/Docusate Sodium (Senna/Docusate Sodium 1 Tablet) 2 tablet PO BID [facility] Last Admin: 02/12/21 21:47 Dose: Not Given Documented by: Sodium Chloride (0.9% Saline Lock 10 Ml Syringe) 10 - 40 ml IV UD PRN PRN Reason: SALINE FLUSH Last Admin: 02/12/21 13:59 Dose: 10 ml Documented by: Zolpidem Tartrate (Zolpidem Tartrate 5 Mg Tablet) 5 mg PO QHS PRN PRN PRN Reason: INSOMNIA Last Admin: 02/12/21 00:12 Dose: 5 mg Documented by: Discharge Activity: May Not Drive - For 1 week. Follow with PCP Weight Bearing Status: Weight bearing as tolerated Call your doctor if you observe: Fever of 101 or Higher, Numbness or Tingling, Change in Color, Inability to urinate, Inability to have a bowel movement, Using more than one pad per hour, Shortness of breath, Dizziness, Fainting spells, Swelling in the ankles, Chest pain, Increased palpitations (irregular heartbeat), Calf discomfort, Uncontrolled pain Home Medications: Medications to take at Discharge Albuterol IH (ProAir) [Proair Hfa] 1 - 2 puff INHALATION Q4H PRN PRN 08/01/19 Glimepiride [Amaryl] 4 mg PO DAILY 08/01/19 Hydrochlorothiazide [Hctz] 25 mg PO DAILY 08/01/19 Ipratropium [Atrovent Inhaler] 2 puff INHALATION DAILY PRN 08/01/19 Losartan Potassium [Cozaar] 100 mg PO DAILY 08/01/19 Ondansetron [Zofran Odt] 4 mg PO Q8H PRN PRN #5 tab 10/05/19 Bupropion HCl [Bupropion Xl] 150 mg PO DAILY 02/11/21 Escitalopram Oxalate [Lexapro] 10 mg PO DAILY 02/11/21 Montelukast [Singulair] 10 mg PO DAILY 02/11/21 Pantoprazole Sodium 40 mg PO DAILY 02/11/21 Sitagliptin Phosphate [Januvia] 100 mg PO DAILY 02/11/21 Amox/Clavulanate Tablet [Augmentin Tablet] 875 mg PO Q12H #11 tab 02/13/21 Metformin HCl 500 mg PO BIDCM #0 02/13/21 Nystatin Powder [Mycostatin Powder] 1 applic TOPICAL TID #1 bottle 02/13/21 Following Prescriptions Were Given to Patient: Amox/Clavulanate Tablet [Augmentin Tablet] 875 mg PO Q12H #11 tab Transmission Status: Pending to [facility] Nystatin Powder [Mycostatin Powder] 1 applic TOPICAL TID #1 bottle Transmission Status: Pending to [facility] Primary Care Physician: Tyson De La Fuente MD [Primary Care Provider] - Please follow up with your Primary Care Physician in: In 1 to 2 weeks Please Follow Up With: Vu Manuel MD When: Recurrent UTI in 3-4 weeks Medical Necessity - Tobacco Use Smoking Status: Never smoker
[2021-02-13] MEDS: Escitalopram Oxalate 10 MG Tablet PO (09:45)
[2021-02-13] MEDS: Pantoprazole Sodium 40 MG Tablet PO (09:45)
[2021-02-13] MEDS: Losartan Potassium 100 MG Tablet PO (09:45)
[2021-02-13] MEDS: Menthol/Lanolin/Calamine/Znox 113 GM Tube 1 APPLIC TOPICAL (09:45)
[2021-02-13] MEDS: hydroCHLOROthiazide 25 MG Tablet PO (09:45)
[2021-02-13] MEDS: buPROPion (XL) 150 MG TABLET.XL PO (09:45)
[2021-02-13] MEDS: Enoxaparin 40 MG/0.4 ML Syringe SC (09:48)
[2021-02-13] MEDS: Montelukast 10 MG Tablet PO (09:49)
--- NOTE | 2021-02-13 10:11 | PCM.WORK.EX ---
Work/School Excuse Work/School Excuse for:: Patient Please excuse this person from:: Work From: 02/11/21 through: 02/15/21
[2021-02-13 11:35] VITALS: BP 132/97; PULSE 94; RESP 18; TEMP 36.6; O2SAT 98
--- NOTE | 2021-02-13 12:09 | PCM.DC.SUM ---
<ShukriBecka ASSISTANT TODDLER TEACHER - Last Filed: 02/13/21 12:14> Discharge Date and Diagnosis - Problem List Patient Problems: Active and Suspected Problems (Last Reviewed 02/11/21 @ 22:37 by PRABHU Greer) Pyelonephritis (Suspected) Lactic acidosis (Acute) Date of Admission: 02/11/21 Date of Discharge: 02/13/21 - Primary Discharge Diagnosis Acute Problems: Active Problems (Last Reviewed 02/11/21 @ 22:37 by PRABHU Greer) 1. Acute complicated cystitis, failed outpatient treatment 2. Lactic acidosis-no evidence of sepsis or severe sepsis. 3. Type 2 diabetes mellitus 4. Hypertension 5. Chronic intermittent asthma 6. Depression 7. Morbid obesity Suspected Problems: Suspected Problems (Last Reviewed 02/11/21 @ 22:37 by PRABHU Greer) Pyelonephritis (Suspected) - Secondary Discharge Diagnosis Chronic Problems: Chronic Problems (Last Reviewed 02/11/21 @ 22:37 by RPABHU Greer) Depression (Chronic) Hypertension (Chronic) Asthma (Chronic) Diabetes mellitus, type 2 (Chronic) Morbid obesity with BMI of 60.0-69.9, adult (Chronic) Hospital Course and Treatment Imaging Results: Diagnostic Data Abdomen/Pelvis CT 02/11/21 15:50 IMPRESSION: No acute abnormalities in the abdomen or pelvis. Fatty liver. Electronically Signed: Grady Patricia MD at 18:14 EDT Tel , Service support , Consultations 02/12/21 01:05 Consult: Onc/Wound/manager protein Routine Comment: Reason for Consult:: R. heel ulcer Comments:: pt. also a diabetic Operations: None Procedures: None Summary of Care Provided: The patient is a 30 year old F admitted 02/11/21 due to UTI and right flank pain. 1. Acute complicated cystitis, failed outpatient treatment-CT of abdomen without acute process. Blood culture shows no growth so far. Urine culture growing Enterococcus 11-25,000 colony counts and Klebsiella less than 1000 colony count. Patient received IV Zosyn during admission. Transition to Augmentin at discharge to complete course. Follow-up with PCP in 1 week. 2. Lactic acidosis-no evidence of sepsis or severe sepsis. Lactic acidosis resolved. 3. Type 2 diabetes mellitus-On metformin, Januvia, glimepiride. Hemoglobin A1c 8.7%. 4. Hypertension-on hydrochlorothiazide, losartan. 5. Chronic intermittent asthma 6. Depression-on escitalopram, bupropion. 7. Morbid obesity-encouraged diet and lifestyle modifications. General: Alert, Oriented x3, Cooperative HEENT: Atraumatic, PERRLA, EOMI, Normocephalic Neck: Supple, No JVD, Negative Carotid Bruits Lungs: Clear to auscultation, Normal air movement Cardiovascular: Regular rate, No murmurs Abdomen: Bowel Sounds Present, Soft, Non Tender, Non-Distended, Obese Extremities: No clubbing, No cyanosis, No edema, Capillary Refill Less than 3 Seconds Skin: No rashes, No breakdown Musculoskeletal: No Tenderness to Palpation of Joints or Extremities Neurological: Cranial nerves II-XII grossly intact, Neuro grossly intact Psych/Mental Status: Normal Affect, Appropriate Patient seen and examined prior to discharge. Physical assessment as noted above. Patient is stable for discharge with follow up recommendations as noted above. This patient was seen by PRABHU Silva under the supervision of Dr. Ashraf. Patient Problems: Active and Suspected Problems (Last Reviewed 02/11/21 @ 22:37 by PRABHU Greer) Pyelonephritis (Suspected) Lactic acidosis (Acute) - Physical Exam Vitals/I&O's: Vital Signs Temp Pulse Resp BP Pulse Ox 98 F 94 18 132/97 H 98 02/13/21 11:35 02/13/21 11:35 02/13/21 11:35 02/13/21 11:35 02/13/21 11:35 Oxygen Delivery Method Room Air Weight: 463 lb 13.641 oz Body Mass Index (BMI) 66.5 Intake and Output for Last 24 Hours 02/11/21 02/12/21 02/13/21 23:59 23:59 23:59 Intake Total 2323.33 / 2323.33 2300 / 2800 1400 / 1400 Output Total 850 / 2550 2700 / 2700 Balance 2323.33 / 2323.33 1450 / 250 -1300 / -1300 Microbiology Past 72 Hours 02/11/21 16:35 Urine, Clean Catch Urine Culture - Final Enterococcus faecalis Klebsiella pneumoniae sp pneum Laboratory Results 02/12/21 12:20: POC Glucose 253 H 02/12/21 16:32: POC Glucose 247 H 02/12/21 21:39: POC Glucose 247 H 02/13/21 06:15: Sodium 133 L, Potassium 3.7, Chloride 103, Carbon Dioxide 28.0, Anion Gap 2 L, BUN 8, Creatinine 0.72, Estim Creat Clear Calc 124.67, Est GFR (MDRD) Af Amer 122, Est GFR (MDRD) Non-Af 101, BUN/Creatinine Ratio 11.0, Glucose 228 H, Calcium 9.0 02/13/21 07:53: POC Glucose 238 H Discharge Diet: Carb Control Diet Discharge Activity: May Not Drive - For 1 week. Follow with PCP Weight Bearing Status: Weight bearing as tolerated Call your doctor if you observe: Fever of 101 or Higher, Numbness or Tingling, Change in Color, Inability to urinate, Inability to have a bowel movement, Using more than one pad per hour, Shortness of breath, Dizziness, Fainting spells, Swelling in the ankles, Chest pain, Increased palpitations (irregular heartbeat), Calf discomfort, Uncontrolled pain Home Medications: Medications to take at Discharge Albuterol IH (ProAir) [Proair Hfa] 1 - 2 puff INHALATION Q4H PRN PRN 08/01/19 Glimepiride [Amaryl] 4 mg PO DAILY 08/01/19 Hydrochlorothiazide [Hctz] 25 mg PO DAILY 08/01/19 Ipratropium [Atrovent Inhaler] 2 puff INHALATION DAILY PRN 08/01/19 Losartan Potassium [Cozaar] 100 mg PO DAILY 08/01/19 Ondansetron [Zofran Odt] 4 mg PO Q8H PRN PRN #5 tab 10/05/19 Bupropion HCl [Bupropion Xl] 150 mg PO DAILY 02/11/21 Escitalopram Oxalate [Lexapro] 10 mg PO DAILY 02/11/21 Montelukast [Singulair] 10 mg PO DAILY 02/11/21 Pantoprazole Sodium 40 mg PO DAILY 02/11/21 Sitagliptin Phosphate [Januvia] 100 mg PO DAILY 02/11/21 Amox/Clavulanate Tablet [Augmentin Tablet] 875 mg PO Q12H #11 tab 02/13/21 Metformin HCl 500 mg PO BIDCM #0 02/13/21 Nystatin Powder [Mycostatin Powder] 1 applic TOPICAL TID #1 bottle 02/13/21 Following Prescriptions Were Given to Patient: Amox/Clavulanate Tablet [Augmentin Tablet] 875 mg PO Q12H #11 tab Transmission Status: Received by [id number]30 Nystatin Powder [Mycostatin Powder] 1 applic TOPICAL TID #1 bottle Transmission Status: Received by [id number] Primary Care Physician: Tyson De La Fuente MD [Primary Care Provider] - Please follow up with your Primary Care Physician in: In 1 to 2 weeks Please Follow Up With: Vu Manuel MD When: Recurrent UTI in 3-4 weeks Disposition: Home Minutes spent on discharge:: 35 Patient Condition:: Stable Medical Necessity - Tobacco Use Smoking Status: Never smoker Meaningful Use Info Meaningful Use Diagnoses (Choose all that apply): None applicable <Junito Ashraf - Last Filed: 02/13/21 16:39> Discharge Date and Diagnosis - Primary Discharge Diagnosis Acute Problems: Active Problems (Last Reviewed 02/11/21 @ 22:37 by Abbey Barroso NP-Ken) Lactic acidosis (Acute) Suspected Problems: Suspected Problems (Last Reviewed 02/11/21 @ 22:37 by PRABHU Greer) Pyelonephritis (Suspected) - Secondary Discharge Diagnosis Chronic Problems: Chronic Problems (Last Reviewed 02/11/21 @ 22:37 by Abbey Barroso NP-C) Depression (Chronic) Hypertension (Chronic) Asthma (Chronic) Diabetes mellitus, type 2 (Chronic) Morbid obesity with BMI of 60.0-69.9, adult (Chronic) Hospital Course and Treatment Consultations 02/12/21 01:05 Consult: Onc/Wound/manager protein Routine Comment: Reason for Consult:: R. heel ulcer Comments:: pt. also a diabetic Summary of Care Provided: This patient was seen in conjunction with Becka DAI. I have independently interviewed and examined the patient and reviewed pertinent history, examination findings, laboratory and plan of management. I have reviewed the note and agree with the documented findings with the few additional points. In brief, the patient is morbid obese Afro-Cypriot female with history of recurrent UTI and diabetes admitted with due to acute complicated cystitis. Currently on IV Zosyn. She recently had Keflex, Levaquin and Cipro in last 4 months. Denies history of renal angle pain or pyelonephritis. Lactic acidosis improved. Patient did not had fever or chills or leukocytosis or hypotension. Urine culture shows Enterococcus faecalis, vancomycin sensitive [id number] and Klebsiella less than 1000, colonies. Patient is discharged on Augmentin to complete a total of 7 days of course. I discussed the maneuvers to prevent recurrent UTI including frequent emptying of the bladder and follow-up with ID. Other comorbidities as mentioned above. Diabetes mellitus, hyperglycemia, uncontrolled. A1c 8.7. Follow with PCP I have discussed my assessment with ASSISTANT TODDLER TEACHERBecka and orders have been reviewed. Discharge medication reconciliation done. Discharge follow-up instructions completed. Discharge process discussed with the patient and all questions were answered to patient's satisfaction. Total time spent, exact 35 minutes on discharge meds reconciliation, examination, coordination of care with nurses and ancillary staff, review of imaging and blood test and discussion with the patient on follow-up instructions [] Microbiology Past 72 Hours 02/11/21 16:35 Urine, Clean Catch Urine Culture - Final Enterococcus faecalis Klebsiella pneumoniae sp pneum Laboratory Results 02/12/21 16:32: POC Glucose 247 H 02/12/21 21:39: POC Glucose 247 H 02/13/21 06:15: Sodium 133 L, Potassium 3.7, Chloride 103, Carbon Dioxide 28.0, Anion Gap 2 L, BUN 8, Creatinine 0.72, Estim Creat Clear Calc 124.67, Est GFR (MDRD) Af Amer 122, Est GFR (MDRD) Non-Af 101, BUN/Creatinine Ratio 11.0, Glucose 228 H, Calcium 9.0 02/13/21 07:53: POC Glucose 238 H Objective: Seen and examined. Afebrile, heart rate and blood pressure controlled. Patient denies nausea vomiting. Burning micturition has improved. Physical exam General: Alert, Oriented x3, Cooperative, morbid obesity BMI 66.6 kg/m? HEENT: Atraumatic, PERRLA, EOMI, Normocephalic Oral: No Gingival or Mucosal Lesions/ Ulcerations Neck: Supple, No JVD, Negative Carotid Bruits Lungs: Air entry diminished in bilateral lung bases. No crepitation/rhonchi Cardiovascular: Regular rate, Regular Rhythm, Normal S1, Normal S2, No murmurs Abdomen: Bowel Sounds Present, Soft, Non Tender, Non-Distended : No renal angle tenderness. No suprapubic tenderness. Extremities: No edema, Capillary Refill Less than 3 Seconds Skin: No rashes, No breakdown Musculoskeletal: No Tenderness to Palpation of Joints or Extremities Neurological: Cranial nerves II-XII grossly intact, Deep Tendon Reflexes 2+/4 and Symmetrical, Neuro grossly intact Psych/Mental Status: Normal Affect, Appropriate. - Physical Exam Vitals/I&O's: Vital Signs Temp Pulse Resp BP Pulse Ox 98 F 94 18 132/97 H 98 02/13/21 11:35 02/13/21 11:35 02/13/21 11:35 02/13/21 11:35 02/13/21 11:35 Oxygen Delivery Method Room Air Weight: 463 lb 13.641 oz Body Mass Index (BMI) 66.5 Intake and Output for Last 24 Hours 02/11/21 02/12/21 02/13/21 23:59 23:59 23:59 Intake Total 2323.33 / 2323.33 2300 / 2800 1400 / 1400 Output Total 850 / 2550 2700 / 2700 Balance 2323.33 / 2323.33 1450 / 250 -1300 / -1300 Microbiology Past 72 Hours 02/11/21 16:35 Urine, Clean Catch Urine Culture - Final Enterococcus faecalis Klebsiella pneumoniae sp pneum Laboratory Results 02/12/21 16:32: POC Glucose 247 H 02/12/21 21:39: POC Glucose 247 H 02/13/21 06:15: Sodium 133 L, Potassium 3.7, Chloride 103, Carbon Dioxide 28.0, Anion Gap 2 L, BUN 8, Creatinine 0.72, Estim Creat Clear Calc 124.67, Est GFR (MDRD) Af Amer 122, Est GFR (MDRD) Non-Af 101, BUN/Creatinine Ratio 11.0, Glucose 228 H, Calcium 9.0 02/13/21 07:53: POC Glucose 238 H Inpatient E&M: [id number] Disch Hosp
--- NOTE | 2021-02-16 14:44 | CASEMGMT ---
RN CM Discharge Follow Up Phone Call: RYLIE: Milagros Strata: 3 Call Date: 02.25.21 Discharge Date: 02.13.21 Time of Call:1445 Duration:<1 min Admitting Dx:Acute complicated cystitis RN JOSEFINA attempted to complete follow up phone call after recent hospitalization. No answer to a non identifying vm. No message left.
== END 2021-02-13 11:38 | disposition home or self-care (01) | DRG 463 ==
LOC: ED 22:12 → MS3 23:06
PROVIDERS: Nurse Practitioner Family; Admitting Provider Hospitalist; Emergency Provider Emergency Medicine; PCP Family Medicine; Visit Provider Internal Medicine
DX: N30.00 Acute cystitis without hematuria (principal); B95.2 Enterococcus as the cause of diseases classified elsewhere; B96.1 Klebsiella pneumoniae [K. pneumoniae] as the cause of diseases classified elsewhere; E87.2 Acidosis; I10 Essential (primary) hypertension; E11.65 Type 2 diabetes mellitus with hyperglycemia; J45.20 Mild intermittent asthma, uncomplicated; F32.9 Major depressive disorder, single episode, unspecified; R00.0 Tachycardia, unspecified; E66.01 Morbid (severe) obesity due to excess calories; Z68.44 Body mass index [BMI] 60.0-69.9, adult; Z79.84 Long term (current) use of oral hypoglycemic drugs; Z79.899 Other long term (current) drug therapy; Z87.440 Personal history of urinary (tract) infections
CPT/HCPCS: 36415; 74177; 80048; 80053; 81001; 81025; 82962; 83036; 83605; 85025; 87040; 87077; 87086; 87088; 87186; 94640; 99284; J7030; Q9967; A4216; J0696

== ENCOUNTER 2021-02-17 14:48 | Emergency (ER) | payer MEDICAID, SELFPAY ==
[2021-02-11 23:16] VITALS: BMI 66.5
[2021-02-17 14:50] VITALS: BP 155/103; PULSE 114; RESP 22; TEMP 36.3; O2SAT 97; BMI 65.9
[2021-02-17 15:39] VITALS: BP 155/103; PULSE 114; RESP 22; TEMP 36.3; O2SAT 97
--- NOTE | 2021-02-17 15:49 | ED.DCSUM_ITS ---
History of Present Illness Chief Complaint: Flank Pain Informant: Patient, - - Was sent to ER because lactate was 2.6. Onset: Days Context: Sudden Onset Timing: Continuous Quality: Lower abdominal pain and back pain Location: Central low abdomen and central low back Current Severity: Mild Maximum Severity: Moderate Worsened by: Nothing Relieved by: Nothing Associated Symptoms: Nausea Narrative: Patient is a 30-year-old woman who was admitted to the end of last week for urinary tract infection. She was discharged on Augmentin. She notes 2 loose stools today. She denies fever or chills. She denies orthostatic symptoms. She does report thirst. She denies blurred vision. She does report using the restroom 3-4 times today. She states her last A1c was greater than 8. She denies weight gain or weight loss. She denies myalgias or arthralgias. She denies cardiac or respiratory symptoms. She denies URI symptoms. She denies change in voice. She denies black or maroon-colored stool. She denies blood in her diarrhea. Patient states she was sent here because of her lactate and elevated white count. Prior similar symptoms: Yes Recent Illness/Hospitalization: Yes - Past Medical History (1) Asthma Status: Chronic (2) Depression Status: Chronic (3) Diabetes mellitus, type 2 Status: Chronic (4) Hypertension Status: Chronic (5) Morbid obesity with BMI of 60.0-69.9, adult Status: Chronic (6) Pyelonephritis Status: Suspected Past Medical History - Allergies and Home Meds Allergies/Adverse Reactions: Allergies bee pollen Allergy (Verified 02/17/21 14:49) Hives codeine Allergy (Verified 02/17/21 14:49) Hives fluticasone [From Advair Diskus] Allergy (Verified 02/17/21 14:49) Hives mushroom Allergy (Verified 02/17/21 14:49) Hives salmeterol [From Advair Diskus] Allergy (Verified 02/17/21 14:49) Hives sucralfate [From Carafate] Allergy (Verified 02/17/21 14:49) Hives Primary Care Physician: Tyson De La Fuente MD [Primary Care Provider] - Prior records reviewed: Yes Surgical History: noncontributory, cholecystectomy Lives: Alone Smoking Status: Never smoker Alcohol: None Drugs: None - Family History Maternal Family History: Reports: No pertinent history Paternal Family History: Reports: No pertinent history Review of Systems General: Reports: Malaise. Denies: Chills, Fever, Subjective, Sweats, Weight loss Eyes: Denies: Visual changes - bilaterally, Blurred Vision - bilaterally ENT: Denies: Bilateral ear pain, Right ear pain, Rhinorrhea, Sore throat Cardiovascular: Denies: Chest pain, Palpitations Respiratory: Denies: Dyspnea, Cough, Dyspnea on exertion, Orthopnea Gastrointestinal: Reports: Abdominal pain, Nausea, Diarrhea. Denies: Vomiting, Constipation, Melena, Hematochezia Genitourinary: Reports: Frequency. Denies: Dysuria, Hematuria Musculoskeletal: Reports: Back pain - Previously described. Denies: Myalgias, Arthralgias, Neck pain, Swelling, Extremity Pain Skin: Denies: Rash, Wounds Neurological: Denies: Headache, Weakness, Parasthesia Psych: Denies: Anxiety Endocrine: Denies: Polyuria, Polydipsia Hematologic: Denies: Easy bruising, Easy bleeding Physical Exam Vital Signs/Narrative: Vital Signs Temp Pulse Resp BP Pulse Ox 02/17/21 15:39 97.3 F L 114 H 22 H 155/103 H 97 02/17/21 14:50 97.3 F L 114 H 22 H 155/103 H 97 Inital Vital Signs reviewed: Yes General: Well nourished, Well developed, Obese, No Acute Distress Head: Normocephalic, Atraumatic Eyes: Perrl, EOMI. Negative for: Pale conjunctiva, Scleral icterus ENT: Moist mucous membranes, No rhinorrhea Neck: Supple, Nontender, No lymphadenopathy Cardiovascular: Regular rhythm, No murmurs, Normal S1, Normal S2, Tachycardia Respiratory: No distress, CTA bilaterally, Chest nontender Abdomen: Soft, Nontender, Nondistended, Normal bowel sounds, No masses - Will to determine because of body habitus Rectal: Negative for: Deferred Back: Nontender, Normal Inspection. Negative for: CVA tenderness Extremities: Nontender, No edema Skin: Normal color, No rash, No Trauma. Negative for: Cyanosis, Diaphoresis, Jaundice Neurological: Alert, Oriented x3, Cranial nerves II-XII grossly intact, Normal Strength, Normal Sensation, Normal DTR Psychological: Normal affect, Normal Mood Diagnostic/Tx/Re-eval Laboratory Results 02/17/21 02/17/21 02/17/21 15:25 15:46 15:49 Sodium 132 L Potassium 4.3 Chloride 98 Carbon Dioxide 26.0 Anion Gap 8 BUN 15 Creatinine 1.00 Estim Creat Clear Calc 89.76 Est GFR (MDRD) Af Amer 84 Est GFR (MDRD) Non-Af 70 BUN/Creatinine Ratio 15.0 Glucose 436 H Calcium 8.7 Urine Color Yellow Urine Clarity Sl. Cloudy Urine pH 6.0 Ur Specific [place] 1.020 Urine Protein Negative Urine Glucose (UA) 1000 H Urine Ketones Negative Urine Occult Blood 250 H Urine Nitrite Negative Urine Bilirubin Negative Urine Urobilinogen Normal Ur Leukocyte Esterase 25 H Urine RBC 5-10 SEEN Urine WBC 0-5 SEEN Ur Squamous Epith Cells 0-5 SEEN Urine Bacteria 0 SEEN Urine Mucus 0 SEEN Urine Yeast RARE POC Glucose 466 H* Laboratory results reveal high hyperglycemia without ketosis or DKA. Anion gap is normal. Urine is not infected. Was told on certain why she is having pain since her work-up is unremarkable. She was informed that her lactate is elevated due to Metformin. - Medical Decision Making Lactate was available for review and is 2.6. This may be due to Metformin. Patient's white count is elevated at 13.2 thousand with 77 segs and no bands. The CBC was performed that [facility]. I was informed that patient's PTT is greater than 400 may explain her increased urination and thirst. BMP was obtained to assess blood sugar as well as anion gap. Reviewed micro results for urine culture. Patient is on appropriate antibiotic. Her symptoms may be due to hyperglycemia. With regards to the abdominal pain she had a CT of the abdomen performed last week which was interpreted as negative by radiologist. ED Disposition - Plan for ED Patient: Disposition: Home or Assisted Living Diagnosis: Lactic acidosis due to diabetes mellitus, Hyperglycemia due to type 2 diabetes mellitus, Abdominal pain of unknown etiology Instructions: ED Diet: Diabetes, ED Abdominal Pain Unkn Cause Fem Referrals: Tyson De La Fuente MD [Primary Care Provider] - 3-5 Days
[2021-02-17 15:52] LABS: Anion Gap 8 (5-15); BUN 15 mg/dL (7-18); Calcium,Total 8.7 mg/dL (8.5-10.1); Chloride 98 mmol/L (98-107); EST Glomerular Filtration Rate 70 mL/min (>60); Est Glom Filt Rate - Afr Amer 84 mL/min (>60); Estimated Creatinine Clearance 89.76 ml/min; Glucose 436 mg/dL (74-106); Potassium 4.3 mmol/L (3.5-5.1); Sodium Level 132 mmol/L (136-145)
--- NOTE | 2021-02-17 15:52 | ED.RN ---
DR. Jenkins made aware, no further orders at this time will continue to monitor the pt.
[2021-02-17 15:55] LABS: Bedside Glucose 466 mg/dL (70-110)
[2021-02-17 16:00] LABS: Bacteria 0 SEEN /hpf (None Seen); Mucous, Urine 0 SEEN /hpf (<or=2+)
[2021-02-17 16:10] LABS: Color, Urine Yellow (Yellow); Glucose, Dipstick 1000 mg/dl (Normal); Ketone-Dipstick Negative (Negative); Leukocyte Esterase-Dipstick 25 /ul (Negative); Nitrite-Dipstick Negative (Negative); Occult Blood-Urine 250 /ul (Negative); Protein-Dipstick Negative (Negative); Urine Bilirubin Dipstick Negative (Negative); Urine Clarity Sl. Cloudy (Clear); Urine Urobilinogen Normal (Normal)
[2021-02-17 16:35] LABS: Squamous Epithelial Cells - UA 0-5 SEEN /hpf (5-10)
[2021-02-17 16:37] LABS: White Blood Cells 0-5 SEEN /hpf (0-5)
[2021-02-17 16:42] LABS: Red Blood Cells-Urine 5-10 SEEN /hpf (0-5)
[2021-02-17 16:44] LABS: Yeast-Urine RARE /hpf (None Seen)
[2021-02-17] MEDS: Insulin Lispro 100 UNIT/ML INSULN.PEN 8 UNIT SC (16:48)
[2021-02-17 17:56] VITALS: BP 164/149; PULSE 103; RESP 18; O2SAT 97
[2021-02-17 18:06] LABS: Bedside Glucose 382 mg/dL (70-110)
[2021-02-17 18:09] VITALS: BP 158/125; PULSE 103; RESP 18; O2SAT 97
== END 2021-02-17 18:11 | disposition home or self-care (01) ==
PROVIDERS: Emergency Provider Emergency Medicine; PCP Family Medicine
DX: E87.2 Acidosis (principal); T38.3X5A Adverse effect of insulin and oral hypoglycemic [antidiabetic] drugs, initial encounter; Y92.9 Unspecified place or not applicable; E11.65 Type 2 diabetes mellitus with hyperglycemia; I10 Essential (primary) hypertension; E66.01 Morbid (severe) obesity due to excess calories; Z68.44 Body mass index [BMI] 60.0-69.9, adult; J45.909 Unspecified asthma, uncomplicated; F32.9 Major depressive disorder, single episode, unspecified; R10.9 Unspecified abdominal pain; Z79.84 Long term (current) use of oral hypoglycemic drugs; Z79.899 Other long term (current) drug therapy
CPT/HCPCS: 80048; 81001; 82962; 83605; 99283

== ENCOUNTER → 2021-02-17 | Outpatient (CLI) | payer MEDICAID, SELFPAY ==
[2021-02-11 23:16] VITALS: BMI 66.5
[2021-02-17 10:54] LABS: Lactic Acid 2.6 mmol/L (0.4-1.9)
[2021-02-17 11:36] LABS: Reflex Lactate? N
== END | disposition home or self-care (01) ==
LOC: LABSPEC 10:11
PROVIDERS: PCP Family Medicine; Referring Provider Registered Nurse; Visit Provider Registered Nurse
DX: R10.9 Unspecified abdominal pain (principal)
CPT/HCPCS: 83605

== ENCOUNTER 2021-04-03 16:04 | Emergency (ER) | payer MEDICAID, SELFPAY ==
[2021-04-03 16:04] VITALS: BP 163/103; PULSE 86; RESP 16; TEMP 36.6; O2SAT 97; BMI 65.9
--- NOTE | 2021-04-03 17:44 | EX.ED.DYSGE1 ---
HPI History of Present Illness Chief Complaint: Abd Pain Narrative Narrative: Patient presenting for 2 to 3 days of right flank pain. She is not having any dysuria. Patient states that a couple of days ago she was lightheaded before all this started. She states she was at work and sat in the break room and when she felt better she got up to work and started feeling nauseous. At this point she went to the bathroom and vomited. The flank pain she is having now is intermittent. She was seen at the urgent care who did a urinalysis and stated they could not tell whether it was a UTI, hematuria from kidney stone or possibly DKA. Patient does admit to having blood sugars in the 300s recently. She has been taking her medications. [facility] Medical History (Updated 04/03/21 @ 20:[address] Satnam Madrigal, ) Asthma Back pain Diabetes Fatigue Hypertension Neck pain Severe headache Shortness of breath Home Medications albuterol sulfate 1 - 2 puff INHALATION Q4H PRN PRN 08/01/19 [History Last Taken Unknown] glimepiride 4 mg PO DAILY 08/01/19 [History Last Taken 02/11/21] hydrochlorothiazide 25 mg PO DAILY 08/01/19 [History Last Taken 02/11/21] ipratropium bromide 2 puff INHALATION DAILY PRN 08/01/19 [History Last Taken Unknown] losartan 100 mg PO DAILY 08/01/19 [History Last Taken 02/11/21] ondansetron 4 mg PO Q8H PRN PRN #5 tab 10/05/19 [Rx Last Taken Unknown] bupropion HCl 150 mg PO DAILY 02/11/21 [History Last Taken 02/11/21] escitalopram oxalate 10 mg PO DAILY 02/11/21 [History Last Taken 02/11/21] montelukast 10 mg PO DAILY 02/11/21 [History Last Taken 02/11/21] pantoprazole 40 mg PO DAILY 02/11/21 [History Last Taken 02/11/21] sitagliptin 100 mg PO DAILY 02/11/21 [History Last Taken 02/11/21] metformin 500 mg PO BIDCM #0 02/13/21 [Rx Last Taken 02/11/21] nystatin 1 applic TOPICAL TID #1 bottle 02/13/21 [Rx Last Taken Unknown] hydrocodone-acetaminophen 1 tab PO Q6H PRN PRN 3 Days #10 tablet 04/03/21 [Rx Last Taken Unknown] promethazine 12.5 mg PO TID PRN #10 tab 04/03/21 [Rx Last Taken Unknown] Allergy/AdvReac Type Severity Reaction Status Date / Time bee pollen Allergy Hives Verified 04/03/21 16:07 codeine Allergy Hives Verified 04/03/21 16:07 fluticasone Allergy Hives Verified 04/03/21 16:07 [From Advair Diskus] mushroom Allergy Hives Verified 04/03/21 16:07 salmeterol Allergy Hives Verified 04/03/21 16:07 [From Advair Diskus] sucralfate [From Carafate] Allergy Hives Verified 04/03/21 16:07 Surgical History (Updated 04/03/21 @ 18:00 by Amy Haley) History of appendectomy History of cholecystectomy Social History Smoking Status: Never smoker alcohol intake: never ROS ROS ED Constitutional Constitutional ED: Denies chills, fever(s) or sweats Eyes Eyes: Denies blurry vision or change in vision ENT ENT ED: Denies ear pain or sore throat Cardiovascular Cardiovascular: Denies chest pain, palpitations or racing heartbeat Respiratory/Chest Respiratory/Chest: Denies cough, dyspnea or sputum Gastrointestinal Gastrointestinal: Reports abdominal pain, nausea and vomiting; Denies constipation or diarrhea Genitourinary Genitourinary ED: Denies dysuria, hematuria or urinary frequency Musculoskeletal Musculoskeletal: Denies arthralgias, myalgias or neck pain Integumentary Denies abscess, Abrasions or rash Neurologic Neurologic: Denies headache(s), paresthesias or weakness Psychiatric Psychiatric: Denies anxiety, depression, suicidal ideation or suicidal thoughts Endocrine Endocrinology: Denies polydipsia or polyuria EXAM Physical Exam Const Vital Signs: 04/03/21 16:04 04/03/21 18:02 Temperature 97.8 F 97.5 F L Temperature Source Temporal Oral Pulse Rate 86 85 Respiratory Rate 16 16 Blood Pressure 163/103 H 139/87 H Blood Pressure Mean 123 104 Pulse Ox 97 96 Oxygen Delivery Method Room Air Room Air Positive well nourished General Appearance ED: NAD HEENT trauma and tenderness Eyes PERRL and EOMs intact bilaterally Resp normal respiratory effort and clear to auscultation bilaterally Cardio regular rate and regular rhythm GI normal to inspection, nondistended, normoactive bowel sounds Palpation: soft Back/Spine General Back: CVA tenderness right Neuro oriented x3 Sensorium / Orientation: alert Psych mental status grossly normal Attitude: No agitated Mood & Affect: Negative for anxious Skin no rashes or lesions noted and no wounds MDM MDM MDM Narrative Medical decision making narrative: Patient presenting with right flank pain. She was seen in urgent care previously and told they could not differentiate infection versus kidney stone. Patient not having any urinary symptoms. Obtained urinalysis which shows no infection but does have hematuria. Lab work is all unremarkable otherwise. CT of the abdomen pelvis without contrast shows no identifiable kidney stones. It is possible she could have passed a kidney stone and this is why she is having symptoms. I will send her home with short prescription for [place] and Zofran. She can return precautions. Patient able discharge. Impression: 1 right flank pain 2. Hematuria Lab Data Labs: Laboratory Results - last 24 hr 04/03/21 04/03/21 04/03/21 17:56 17:56 17:56 WBC 9.3 RBC 4.81 Hgb 13.1 Hct 40.2 MCV 83.6 MCH 27.2 MCHC 32.6 RDW Std Deviation 42.2 RDW Coeff of Solo 13.8 Plt Count 286 MPV 10.2 Immature Gran % (Auto) 0.300 Neut % (Auto) 68.1 Lymph % (Auto) 23.1 [place] % (Auto) 5.6 Eos % (Auto) 2.6 Baso % (Auto) 0.3 Absolute Neuts (auto) 6.3 Absolute Lymphs (auto) 2.15 Nucleated RBC % 0 Sodium 139 Potassium 3.7 Chloride 103 Carbon Dioxide 30.0 Anion Gap 6 BUN 6 L Creatinine 0.81 Estim Creat Clear Calc 110.82 Est GFR (MDRD) Af Amer 108 Est GFR (MDRD) Non-Af 89 BUN/Creatinine Ratio 7.4 L Glucose 201 H Calcium 9.2 Serum , Qual NEGATIVE Urine Color Urine Clarity Urine pH Ur Specific [place] Urine Protein Urine Glucose (UA) Urine Ketones Urine Occult Blood Urine Nitrite Urine Bilirubin Urine Urobilinogen Ur Leukocyte Esterase Urine RBC Urine WBC Ur Squamous Epith Cells Urine Bacteria Urine Mucus 04/03/21 18:15 WBC RBC Hgb Hct MCV MCH MCHC RDW Std Deviation RDW Coeff of Solo Plt Count MPV Immature Gran % (Auto) Neut % (Auto) Lymph % (Auto) [place] % (Auto) Eos % (Auto) Baso % (Auto) Absolute Neuts (auto) Absolute Lymphs (auto) Nucleated RBC % Sodium Potassium Chloride Carbon Dioxide Anion Gap BUN Creatinine Estim Creat Clear Calc Est GFR (MDRD) Af Amer Est GFR (MDRD) Non-Af BUN/Creatinine Ratio Glucose Calcium Serum , Qual Urine Color Yellow Urine Clarity Sl. Cloudy Urine pH 6.0 Ur Specific [place] 1.015 Urine Protein Negative Urine Glucose (UA) Normal Urine Ketones Negative Urine Occult Blood 50 H Urine Nitrite Negative Urine Bilirubin Negative Urine Urobilinogen Normal Ur Leukocyte Esterase 25 H Urine RBC 0-5 SEEN Urine WBC 0-5 SEEN Ur Squamous Epith Cells 0-5 SEEN Urine Bacteria 0 SEEN Urine Mucus 0 SEEN Radiography Diagnostic Testing: Radiology Impression Abdomen/Pelvis CT 04/03/21 18:43 IMPRESSION: 1. No acute abnormalities in the abdomen or pelvis. There has been no significant change from the reference exam. 2. Fatty infiltration of the liver. Individualized dose optimization techniques were used for this CT. at 1929 Reported and signed by: Rashard Marcelo MD Electronically Signed: Rashard Marcelo MD at 19:28 EDT Tel , Service support , Discharge Plan Triage Chief Complaint: Abd Pain ED Provider: Satnam Madrigal Dx/Rx/DC Orders Instructions: ED Flank Pain, Uncertain Cause Prescriptions: New hydrocodone-acetaminophen 5-325 mg tablet 1 tab PO Q6H PRN PRN (Reason: Pain) 3 Days Qty: 10 RF: 0 promethazine 12.5 mg tablet 12.5 mg PO TID PRN (Reason: nausea) Qty: 10 RF: 0 No Action glimepiride 4 MG tablet 4 mg PO DAILY RF: 0 hydrochlorothiazide 25 MG tablet 25 mg PO DAILY RF: 0 albuterol sulfate 1 PUFF inhaler 1 - 2 puff inhalation Q4H PRN PRN (Reason: Sob &/Or Wheezing) RF: 0 losartan 100 MG tablet 100 mg PO DAILY RF: 0 ipratropium bromide 12.9 GM inhaler 2 puff inhalation DAILY PRN (Reason: Sob &/Or Wheezing) RF: 0 ondansetron 4 MG tablet 4 mg PO Q8H PRN PRN (Reason: Nausea) Qty: 5 RF: 0 escitalopram oxalate 10 MG tablet 10 mg PO DAILY RF: 0 bupropion HCl 150 MG tablet extended release 24 hr 150 mg PO DAILY RF: 0 pantoprazole 40 MG tablet,delayed release (DR/EC) 40 mg PO DAILY RF: 0 montelukast 10 MG tablet 10 mg PO DAILY RF: 0 sitagliptin 100 MG tablet 100 mg PO DAILY RF: 0 nystatin 1 APPLIC bottle 1 applic TOPICAL TID Qty: 1 RF: 0 metformin 500 MG tablet 500 mg PO BIDCM Qty: 0 RF: 0 Primary Care Provider: Tyson De La Fuente Referrals: Tyson De La Fuente MD [Primary Care Provider] - Disposition Disposition: Home, self care
[2021-04-03] MEDS: Ondansetron 4 MG/2 ML Vial IV (17:55)
[2021-04-03] MEDS: Morphine 4 MG/ML Syringe IV (17:56)
[2021-04-03 18:02] VITALS: BP 139/87; PULSE 85; RESP 16; TEMP 36.4; O2SAT 96
[2021-04-03 18:13] LABS: Absolute Lymphocyte Count 2.15 X10^3/uL (0.83-4.51); Absolute Neutrophil Count 6.3 X10^3/uL (2.0-7.7); Basophil# 0.03 X10^3/uL; Basophil% 0.3 % (0-1); Eosinophil# 0.24 X10^3/uL; Eosinophils% 2.6 % (0-5); Hematocrit 40.2 % (37-47); Hemoglobin 13.1 g/dL (12.0-15.0); Lymphocyte # 2.15 X10^3/ul (0.83-4.51); Lymphocyte % 23.1 % (19-41); Mean Corp Hgb Conc 32.6 g/dL (32-36); Mean Corpuscular Hgb 27.2 pg (27.0-32.0); Mean Corpuscular Volume 83.6 fL (81-99); Mean Platelet Vol. 10.2 fl (6.2-12.0); Monocyte# 0.52 X10^3/uL; Monocyte% 5.6 % (0-10); NRBC Flagged by Analyzer 0 % (0-5); Neutrophil # 6.32 X10^3/uL (2.7-7.7); Neutrophil % 68.1 % (47-70); Platelet Count 286 K/mm3 (150-450); RBC Distribution Width CV 13.8 % (11.6-14.6); RBC Distribution Width SD 42.2 fl (35.1-43.9); Red Blood Count 4.81 M/mm3 (4.2-5.4); White Blood Count 9.3 K/mm3 (4.4-11.0)
[2021-04-03 18:20] LABS: Anion Gap 6 (5-15); BUN 6 mg/dL (7-18); BUN/Creat Ratio 7.4 RATIO (10-20); Calcium,Total 9.2 mg/dL (8.5-10.1); Chloride 103 mmol/L (98-107); Creatinine, Serum 0.81 mg/dL (0.55-1.02); EST Glomerular Filtration Rate 89 mL/min (>60); Est Glom Filt Rate - Afr Amer 108 mL/min (>60); Estimated Creatinine Clearance 110.82 ml/min; Glucose 201 mg/dL (74-106); Potassium 3.7 mmol/L (3.5-5.1); Sodium Level 139 mmol/L (136-145)
[2021-04-03 18:24] LABS: Bacteria 0 SEEN /hpf (None Seen); Mucous, Urine 0 SEEN /hpf (<or=2+)
[2021-04-03 18:32] LABS: Color, Urine Yellow (Yellow); Glucose, Dipstick Normal (Normal); Ketone-Dipstick Negative (Negative); Leukocyte Esterase-Dipstick 25 /ul (Negative); Nitrite-Dipstick Negative (Negative); Occult Blood-Urine 50 /ul (Negative); Protein-Dipstick Negative (Negative); Specific Gravity, Urine 1.015 (1.002-1.030); Urine Bilirubin Dipstick Negative (Negative); Urine Clarity Sl. Cloudy (Clear); Urine Urobilinogen Normal (Normal)
--- NOTE | 2021-04-03 18:43 | CT_ITS ---
EXAM: CT ABDOMEN AND PELVIS WITHOUT INTRAVENOUS CONTRAST : 1990 CLINICAL INDICATION: right flank pain TECHNIQUE: Helically acquired images were obtained of the abdomen and pelvis without intravenous contrast. This CT exam was performed using one or more of the following dose reduction techniques: automated exposure control, adjustment of the mA and/or kV according to patient size, and/or use of iterative reconstruction technique. This report was created using [employer] report generation technology. COMPARISON: 02/11/2021 FINDINGS: LOWER THORAX: Unremarkable. Lung bases are clear. No cardiomegaly. No significant pericardial effusion. ABDOMEN: LIVER: There is diffuse decreased density in the liver compatible with fatty infiltration. The liver is enlarged in size but stable. GALLBLADDER AND BILE DUCTS: Unremarkable. No calcified gallstones. No gallbladder distention or wall edema. No intra- or extrahepatic biliary ductal dilation. PANCREAS: Unremarkable. No focal cystic mass. SPLEEN: Unremarkable. Normal size without focal cystic or solid mass. ADRENALS: Unremarkable. No nodules. KIDNEYS AND URETERS: Unremarkable. Normal renal size and position. No hydronephrosis. STOMACH AND BOWEL: Unremarkable. No stomach or bowel distention. No focal inflammatory change. PELVIS: APPENDIX: No evidence of acute appendicitis. BLADDER: Unremarkable. REPRODUCTIVE: Unremarkable as visualized. No mass. ABDOMEN and PELVIS: INTRAPERITONEAL SPACE: Unremarkable. No ascites or other fluid collection. No free air. BONES/JOINTS: Unremarkable. No suspicious lytic or blastic abnormality. SOFT TISSUES: Unremarkable. No discrete abdominal or pelvic wall hernia. VASCULATURE: Unremarkable. Abdominal aorta is non-dilated. LYMPH NODES: Unremarkable. No enlarged lymph nodes. CT/Abdomen/Pelvis without Cont IMPRESSION: 1. No acute abnormalities in the abdomen or pelvis. There has been no significant change from the reference exam. 2. Fatty infiltration of the liver. Individualized dose optimization techniques were used for this CT. at 1929 Reported and signed by: Rashard Marcelo MD Electronically Signed: Rashard Marcelo MD at 19:28 EDT Tel , Service support ,
[2021-04-03 18:48] LABS: Internal QC Validated? YES +Cl - CLEAR BKGD; Pregnancy, Serum, hCG Quali. NEGATIVE Negative
[2021-04-03 18:55] LABS: Red Blood Cells-Urine 0-5 SEEN /hpf (0-5); Squamous Epithelial Cells - UA 0-5 SEEN /hpf (5-10); White Blood Cells 0-5 SEEN /hpf (0-5)
[2021-04-03 21:22] VITALS: BP 136/78; PULSE 78; RESP 18
== END 2021-04-03 21:23 | disposition home or self-care (01) ==
PROVIDERS: Emergency Provider Student in an Organized Health Care Education/Training Program; PCP Family Medicine
DX: R10.9 Unspecified abdominal pain (principal); R31.9 Hematuria, unspecified; I10 Essential (primary) hypertension; E11.9 Type 2 diabetes mellitus without complications; Z90.49 Acquired absence of other specified parts of digestive tract; Z90.89 Acquired absence of other organs; Z79.899 Other long term (current) drug therapy; Z79.84 Long term (current) use of oral hypoglycemic drugs
CPT/HCPCS: 74176; 80048; 81001; 84703; 85025; 96361; 96374; 96375; 99282; A4216; J2405

== ENCOUNTER 2021-04-08 10:54 | Emergency (ER) | payer MEDICAID, SELFPAY ==
[2021-04-08 10:56] VITALS: BP 152/107; PULSE 105; RESP 18; TEMP 36.8; O2SAT 93; BMI 65.9
[2021-04-08 10:57] VITALS: BP 152/107; PULSE 105; RESP 18; TEMP 36.8; O2SAT 93
--- NOTE | 2021-04-08 11:09 | EDS_ITS ---
HPI HPI - GI History of Present Illness Chief Complaint: Abd Pain Informant: patient Abdominal Pain/Flank Pain Onset: Days Context: Gradual Onset Timing: Continuous Current Severity: Mild Maximum Severity: Mild Nausea/Vomiting/Emesis GI Symptom: Positive for Nausea and Vomiting Onset: Days Quality: Positive for Nonbilious; Negative for Blood streaks, Coffee ground and Hematemesis Severity: Mild Diarrhea/Melena/Hematochezia GI Symptom: Positive for Diarrhea Onset: Days Stool Quality: Positive for Loose Severity: Mild Associated Symptoms Associated Symptoms: Negative for Dysuria and Frequency Narrative Narrative: 30-year-old female history of diabetes, obesity, hypertension and asthma. Prior cholecystectomy. States 1 week ago last Tuesday started having nausea, vomiting and diarrhea with diffuse abdominal aching. States she was seen in the emergency department on April 03 and had a negative work-up at that time including a CAT scan. She states she did not feel much better. She denies any fever. No dysuria. Prior similar symptoms: No Recent Illness/Hospitalization: No PFSH PFSH Medical History Asthma Back pain Diabetes Fatigue Hypertension Neck pain Severe headache Shortness of breath Home Medications albuterol sulfate 1 - 2 puff INHALATION Q4H PRN PRN 08/01/19 [History Last Taken Unknown] glimepiride 4 mg PO DAILY 08/01/19 [History Last Taken 02/11/21] hydrochlorothiazide 25 mg PO DAILY 08/01/19 [History Last Taken 02/11/21] ipratropium bromide 2 puff INHALATION DAILY PRN 08/01/19 [History Last Taken Unknown] losartan 100 mg PO DAILY 08/01/19 [History Last Taken 02/11/21] ondansetron 4 mg PO Q8H PRN PRN #5 tab 10/05/19 [Rx Last Taken Unknown] bupropion HCl 150 mg PO DAILY 02/11/21 [History Last Taken 02/11/21] escitalopram oxalate 10 mg PO DAILY 02/11/21 [History Last Taken 02/11/21] montelukast 10 mg PO DAILY 02/11/21 [History Last Taken 02/11/21] pantoprazole 40 mg PO DAILY 02/11/21 [History Last Taken 02/11/21] sitagliptin 100 mg PO DAILY 02/11/21 [History Last Taken 02/11/21] metformin 500 mg PO BIDCM #0 02/13/21 [Rx Last Taken 02/11/21] nystatin 1 applic TOPICAL TID #1 bottle 02/13/21 [Rx Last Taken Unknown] hydrocodone-acetaminophen 1 tab PO Q6H PRN PRN 3 Days #10 tablet 04/03/21 [Rx Last Taken Unknown] promethazine 12.5 mg PO TID PRN #10 tab 04/03/21 [Rx Last Taken Unknown] ondansetron 4 mg PO Q8H #7 tab 04/08/21 [Rx Last Taken Unknown] Allergy/AdvReac Type Severity Reaction Status Date / Time bee pollen Allergy Hives Verified 04/08/21 10:57 codeine Allergy Hives Verified 04/08/21 10:57 fluticasone Allergy Hives Verified 04/08/21 10:57 [From Advair Diskus] mushroom Allergy Hives Verified 04/08/21 10:57 salmeterol Allergy Hives Verified 04/08/21 10:57 [From Advair Diskus] sucralfate [From Carafate] Allergy Hives Verified 04/08/21 10:57 Surgical History History of appendectomy History of cholecystectomy Social History Smoking Status: Never smoker alcohol intake: never ROS ROS ED ROS Narrative Several weeks ago she states she was feeling fine. Complaining of nausea, vomiting, diarrhea and abdominal discomfort. Review of Systems ROS Unobtainable: Denies due to encephalopathy Constitutional Constitutional ED: Reports subjective ENT ENT ED: Denies ear pain or sore throat Cardiovascular Cardiovascular: Denies chest pain Respiratory/Chest Respiratory/Chest: Denies cough or dyspnea Gastrointestinal Gastrointestinal: Reports abdominal pain, diarrhea, nausea and vomiting; Denies constipation or melena Genitourinary Genitourinary ED: Denies dysuria or hematuria Musculoskeletal Musculoskeletal: Denies arthralgias or myalgias Integumentary Denies abscess or rash Neurologic Neurologic: Denies headache(s) Psychiatric Psychiatric: Denies depression Endocrine Endocrinology: Denies polyuria Hematologic/Lymphatic Hematologic/Lymphatic: Denies easy bruising Allergic/Immunologic Allergic/Immunologic ED: Denies urticaria EXAM Physical Exam Narrative Exam Narrative: Young female no acute distress. Vital signs stable afebrile. Blood pressure elevated 152/107. She is morbidly obese. Exam benign. Lungs are clear. Heart regular rhythm no murmur. Abdomen morbid obese but soft no peritoneal signs. Otherwise exam unremarkable. Const Vital Signs: 04/08/21 10:56 04/08/21 10:57 Temperature 98.2 F 98.2 F Temperature Source Temporal Temporal Pulse Rate 105 H 105 H Respiratory Rate 18 18 Blood Pressure 152/107 H 152/107 H Blood Pressure Mean 122 122 Pulse Ox 93 93 Oxygen Delivery Method Room Air Room Air Positive well nourished, well developed and obese General Appearance ED: well developed Nutritional Appearance: obese HEENT normocephalic and atraumatic Eyes PERRL and EOMs intact bilaterally Neck no lymphadenopathy, supple and no JVD General: Negative for tenderness Resp normal respiratory effort and clear to auscultation bilaterally GI non-tender, non-distended and no masses Inspection: Negative for abdominal distention Auscultation: normoactive bowel sounds Palpation: soft; Negative for tender, guarding, rigid or rebound tenderness present Back/Spine no CVA tenderness General Back: Negative for CVA tenderness Cervical Spine: Negative for cervical spine tenderness Extremity full ROM General Extremety ED: Negative for edema or tenderness General Extremity: Negative for edema Neuro moves all extremities Sensorium / Orientation: alert, oriented to person, oriented to place and oriented to time; Negative for orientation impaired Psych mental status grossly normal Skin Lesions: no lesions Rashes: no rashes MDM MDM MDM Narrative Medical decision making narrative: Young female complaining of about a week history of nausea vomiting diarrhea abdominal discomfort. I reviewed her work- up from the . Her CBC, chemistry, liver enzymes, UA and test are all unremarkable. I will also review her CAT scan results. Her exam is benign today. She will be treated with IV fluids times a liter. IV Zofran for nausea. Recheck her CBC and chemistry. I do not think repeat imaging is necessary. Repeat exam patient is doing well at noon and will be discharged to home. Overall test results. She will be written for Zofran for nausea. Outpatient follow-up. Lab Data Lab results narrative: Labs are basically unremarkable and no significant changes from prior labs several days ago. Labs: Laboratory Results - last 24 hr 04/08/21 04/08/21 11:20 11:20 WBC 10.5 RBC 5.17 Hgb 13.9 Hct 41.7 MCV 80.7 L MCH 26.9 L MCHC 33.3 RDW Std Deviation 40.0 RDW Coeff of Solo 13.7 Plt Count 328 MPV 10.2 Immature Gran % (Auto) 0.500 Neut % (Auto) 73.2 H Lymph % (Auto) 16.3 L [place] % (Auto) 6.8 Eos % (Auto) 2.9 Baso % (Auto) 0.3 Absolute Neuts (auto) 7.7 Absolute Lymphs (auto) 1.71 Nucleated RBC % 0 Sodium 134 L Potassium 3.3 L Chloride 95 L Carbon Dioxide 31.0 Anion Gap 8 BUN 12 Creatinine 0.88 Estim Creat Clear Calc 102.00 Est GFR (MDRD) Af Amer 97 Est GFR (MDRD) Non-Af 80 BUN/Creatinine Ratio 13.6 Glucose 298 H Calcium 9.3 Discharge Plan Triage Chief Complaint: Abd Pain ED Provider: Tate Luna Dx/Rx/DC Orders Clinical Impression: Abdominal pain in female Instructions: ED Abdominal Pain Unkn Cause Fem Prescriptions: New ondansetron 4 mg tablet,disintegrating 4 mg PO Q8H Qty: 7 RF: 0 No Action glimepiride 4 MG tablet 4 mg PO DAILY RF: 0 hydrochlorothiazide 25 MG tablet 25 mg PO DAILY RF: 0 albuterol sulfate 1 PUFF inhaler 1 - 2 puff inhalation Q4H PRN PRN (Reason: Sob &/Or Wheezing) RF: 0 losartan 100 MG tablet 100 mg PO DAILY RF: 0 ipratropium bromide 12.9 GM inhaler 2 puff inhalation DAILY PRN (Reason: Sob &/Or Wheezing) RF: 0 ondansetron 4 MG tablet 4 mg PO Q8H PRN PRN (Reason: Nausea) Qty: 5 RF: 0 escitalopram oxalate 10 MG tablet 10 mg PO DAILY RF: 0 bupropion HCl 150 MG tablet extended release 24 hr 150 mg PO DAILY RF: 0 pantoprazole 40 MG tablet,delayed release (DR/EC) 40 mg PO DAILY RF: 0 montelukast 10 MG tablet 10 mg PO DAILY RF: 0 sitagliptin 100 MG tablet 100 mg PO DAILY RF: 0 nystatin 1 APPLIC bottle 1 applic TOPICAL TID Qty: 1 RF: 0 metformin 500 MG tablet 500 mg PO BIDCM Qty: 0 RF: 0 hydrocodone-acetaminophen 5-325 mg tablet 1 tab PO Q6H PRN PRN (Reason: Pain) 3 Days Qty: 10 RF: 0 promethazine 12.5 mg tablet 12.5 mg PO TID PRN (Reason: nausea) Qty: 10 RF: 0 Primary Care Provider: Tyson De La Fuente Referrals: Tyson De La Fuente MD [Primary Care Provider] - 3-5 Days if not improving Activity Restrictions/Additional Instructions: Plenty of fluids and rest. Tylenol and/or Motrin for pain. Zofran as needed for nausea. Your labs today were unremarkable again. Follow-up with your doctor if not improving. Disposition Disposition: Home, self care
[2021-04-08] MEDS: 0.9% Normal Saline 1,000 ML 1000 ML IV (11:27)
[2021-04-08] MEDS: Ondansetron 4 MG/2 ML Vial IV (11:27)
[2021-04-08 11:40] LABS: Absolute Lymphocyte Count 1.71 X10^3/uL (0.83-4.51); Absolute Neutrophil Count 7.7 X10^3/uL (2.0-7.7); Basophil# 0.03 X10^3/uL; Basophil% 0.3 % (0-1); Eosinophil# 0.31 X10^3/uL; Eosinophils% 2.9 % (0-5); Hematocrit 41.7 % (37-47); Hemoglobin 13.9 g/dL (12.0-15.0); Lymphocyte # 1.71 X10^3/ul (0.83-4.51); Lymphocyte % 16.3 % (19-41); Mean Corp Hgb Conc 33.3 g/dL (32-36); Mean Corpuscular Hgb 26.9 pg (27.0-32.0); Mean Corpuscular Volume 80.7 fL (81-99); Mean Platelet Vol. 10.2 fl (6.2-12.0); Monocyte# 0.72 X10^3/uL; Monocyte% 6.8 % (0-10); NRBC Flagged by Analyzer 0 % (0-5); Neutrophil % 73.2 % (47-70); Platelet Count 328 K/mm3 (150-450); RBC Distribution Width CV 13.7 % (11.6-14.6); Red Blood Count 5.17 M/mm3 (4.2-5.4); White Blood Count 10.5 K/mm3 (4.4-11.0)
[2021-04-08 11:46] LABS: Anion Gap 8 (5-15); BUN 12 mg/dL (7-18); BUN/Creat Ratio 13.6 RATIO (10-20); Calcium,Total 9.3 mg/dL (8.5-10.1); Chloride 95 mmol/L (98-107); Creatinine, Serum 0.88 mg/dL (0.55-1.02); EST Glomerular Filtration Rate 80 mL/min (>60); Est Glom Filt Rate - Afr Amer 97 mL/min (>60); Glucose 298 mg/dL (74-106); Potassium 3.3 mmol/L (3.5-5.1); Sodium Level 134 mmol/L (136-145)
[2021-04-08 12:59] VITALS: PULSE 78; RESP 14; O2SAT 98
== END 2021-04-08 12:59 | disposition home or self-care (01) ==
PROVIDERS: Emergency Provider Emergency Medicine; PCP Family Medicine
DX: R10.9 Unspecified abdominal pain (principal); R11.2 Nausea with vomiting, unspecified; R19.7 Diarrhea, unspecified; I10 Essential (primary) hypertension; E11.9 Type 2 diabetes mellitus without complications; E66.01 Morbid (severe) obesity due to excess calories; Z68.44 Body mass index [BMI] 60.0-69.9, adult; Z79.84 Long term (current) use of oral hypoglycemic drugs; Z90.89 Acquired absence of other organs; Z79.899 Other long term (current) drug therapy
CPT/HCPCS: 80048; 85025; 96361; 96374; 99283; J7030; A4216; J2405

== ENCOUNTER → 2021-04-16 13:13 | Outpatient (CLI) | payer MEDICAID, SELFPAY ==
[2021-04-08 10:56] VITALS: BMI 65.9
[2021-04-16 13:27] LABS: Lipase 80 U/L (73-393)
== END ==
PROVIDERS: PCP Family Medicine; Referring Provider Family Medicine; Visit Provider Family Medicine
DX: R10.13 Epigastric pain (principal); R19.7 Diarrhea, unspecified; R11.2 Nausea with vomiting, unspecified
CPT/HCPCS: 83690

== ENCOUNTER 2021-04-23 20:07 | Emergency (ER) | payer MEDICAID, SELFPAY ==
[2021-04-23 20:08] VITALS: BP 118/45; PULSE 104; RESP 18; TEMP 36.6; O2SAT 97; BMI 64.8
--- NOTE | 2021-04-23 20:28 | EDS_ITS ---
HPI History of Present Illness Chief Complaint: Hyperglycemia Informant: patient Onset/Context/Timing Onset: Today Context: Gradual Onset Timing: Continuous Worsened by: Nothing Relieved by: Nothing Narrative Narrative: Patient presents with elevated blood sugar that was noticed today. Patient had an appoint with her barn and property manager today. Patient had blood work drawn there which showed an elevated blood sugar of 562. Patient states she went home and when she got the phone call she checked her blood sugar at home and it was 397. Patient states she has been having some nausea, vomiting, diarrhea which is the reason she went to the barn and property manager office. Patient admits to some polydipsia but denies any polyuria. Patient admits to some subjective chills but denies any fevers. [facility] Medical History Asthma Back pain Diabetes Fatigue Hypertension Neck pain Severe headache Shortness of breath Home Medications albuterol sulfate 1 - 2 puff INHALATION Q4H PRN PRN 08/01/19 [History Last Taken Unknown] hydrochlorothiazide 25 mg PO DAILY 08/01/19 [History Last Taken 02/11/21] ipratropium bromide 2 puff INHALATION DAILY PRN 08/01/19 [History Last Taken Unknown] losartan 100 mg PO DAILY 08/01/19 [History Last Taken 02/11/21] ondansetron 4 mg PO Q8H PRN PRN #5 tab 10/05/19 [Rx Last Taken Unknown] bupropion HCl 150 mg PO DAILY 02/11/21 [History Last Taken 02/11/21] escitalopram oxalate 10 mg PO DAILY 02/11/21 [History Last Taken 02/11/21] montelukast 10 mg PO DAILY 02/11/21 [History Last Taken 02/11/21] pantoprazole 40 mg PO DAILY 02/11/21 [History Last Taken 02/11/21] sitagliptin 100 mg PO DAILY 02/11/21 [History Last Taken 02/11/21] nystatin 1 applic TOPICAL TID #1 bottle 02/13/21 [Rx Last Taken Unknown] insulin glargine [Lantus Solostar U-100 Insulin] 54 unit SUBCUT QHS 04/23/21 [History Last Taken Unknown] metformin 1,000 mg PO BIDCM 04/23/21 [History Last Taken Unknown] Allergy/AdvReac Type Severity Reaction Status Date / Time bee pollen Allergy Hives Verified 04/23/21 20:10 codeine Allergy Hives Verified 04/23/21 20:10 fluticasone Allergy Hives Verified 04/23/21 20:10 [From Advair Diskus] mushroom Allergy Hives Verified 04/23/21 20:10 salmeterol Allergy Hives Verified 04/23/21 20:10 [From Advair Diskus] sucralfate [From Carafate] Allergy Hives Verified 04/23/21 20:10 Surgical History History of appendectomy History of cholecystectomy Social History Smoking Status: Never smoker alcohol intake: never ROS ROS ED Constitutional Constitutional ED: Reports chills and subjective; Denies fever(s) Eyes Eyes: Denies blurry vision or change in vision ENT ENT ED: Denies rhinorrhea or sore throat Cardiovascular Cardiovascular: Denies chest pain or palpitations Respiratory/Chest Respiratory/Chest: Denies cough or dyspnea Gastrointestinal Gastrointestinal: Reports diarrhea, nausea and vomiting Genitourinary Genitourinary ED: Denies dysuria or hematuria Musculoskeletal Musculoskeletal: Reports back pain; Denies neck pain Integumentary Denies abscess or rash Neurologic Neurologic: Denies headache(s) or weakness Endocrine Endocrinology: Reports polydipsia; Denies cold intolerance, heat intolerance, polyphagia or polyuria Allergic/Immunologic Allergic/Immunologic ED: Denies mouth swelling or urticaria EXAM Physical Exam Const Vital Signs: 04/23/21 20:08 04/23/21 20:41 Temperature 97.9 F Temperature Source Temporal Pulse Rate 104 H Respiratory Rate 18 Respiratory Effort Normal Non-Labored Respiratory Pattern Normal Blood Pressure 118/45 L Blood Pressure Mean 69 Pulse Ox 97 Oxygen Delivery Method Room Air Positive well nourished, well developed and obese General Appearance ED: well developed Nutritional Appearance: obese Neck supple and no JVD Resp normal respiratory effort and clear to auscultation bilaterally Cardio regular rate and regular rhythm GI normal to inspection, nondistended, normoactive bowel sounds Palpation: soft and tender RLQ; Negative for guarding or rebound tenderness present Neuro oriented x3, CN's II-XII intact bilaterally and no sensory deficits noted Sensorium / Orientation: alert Motor Exam: strength 5/5 throughout Psych mental status grossly normal MDM MDM MDM Narrative Medical decision making narrative: Patient was given IV fluids here. CBC shows a slight leukocytosis of 12.2. Comprehensive metabolic profile showed an elevated glucose of 418. Sodium was 131 and chloride was 95. Anion gap is normal. CO2 is normal. Serum acetone is negative. Serum hCG is negative. Urinalysis shows glucose of 1000. There is no evidence of urinary tract infection. Patient was given a dose of 15 units of Humalog here. Patient was instructed to continue her insulin as prescribed. Patient was instructed to watch her diet. Patient was instructed to follow-up with her primary care physician in 3 to 5 days. Patient understood and was agreeable with the plan. All questions were answered. Lab Data Attestation: I reviewed the patient's lab results. Labs: Laboratory Results - last 24 hr 04/23/21 04/23/21 04/23/21 20:20 20:20 20:20 WBC 12.2 H RBC 5.21 Hgb 14.0 Hct 42.5 MCV 81.6 MCH 26.9 L MCHC 32.9 RDW Std Deviation 40.4 RDW Coeff of Solo 13.9 Plt Count 388 MPV 10.4 Immature Gran % (Auto) 0.600 Neut % (Auto) 67.7 Lymph % (Auto) 21.8 [place] % (Auto) 7.2 Eos % (Auto) 2.3 Baso % (Auto) 0.4 Absolute Neuts (auto) 8.3 H Absolute Lymphs (auto) 2.67 Nucleated RBC % 0 Sodium 131 L Potassium 4.0 Chloride 95 L Carbon Dioxide 27.0 Anion Gap 9 BUN 12 Creatinine 0.98 Estim Creat Clear Calc 91.60 Est GFR (MDRD) Af Amer 86 Est GFR (MDRD) Non-Af 71 BUN/Creatinine Ratio 12.2 Glucose 418 H Calcium 9.6 Total Bilirubin 0.80 AST 21 ALT 34 Alkaline Phosphatase 127 H Total Protein 7.5 Albumin 3.6 Globulin 3.9 Albumin/Globulin Ratio 0.9 Serum , Qual Urine Color Urine Clarity Urine pH Ur Specific [place] Urine Protein Urine Glucose (UA) Urine Ketones Urine Occult Blood Urine Nitrite Urine Bilirubin Urine Urobilinogen Ur Leukocyte Esterase Urine RBC Urine WBC Ur Squamous Epith Cells Urine Bacteria Urine Mucus Acetone Level NEGATIVE 04/23/21 04/23/21 20:20 20:20 WBC RBC Hgb Hct MCV MCH MCHC RDW Std Deviation RDW Coeff of Solo Plt Count MPV Immature Gran % (Auto) Neut % (Auto) Lymph % (Auto) [place] % (Auto) Eos % (Auto) Baso % (Auto) Absolute Neuts (auto) Absolute Lymphs (auto) Nucleated RBC % Sodium Potassium Chloride Carbon Dioxide Anion Gap BUN Creatinine Estim Creat Clear Calc Est GFR (MDRD) Af Amer Est GFR (MDRD) Non-Af BUN/Creatinine Ratio Glucose Calcium Total Bilirubin AST ALT Alkaline Phosphatase Total Protein Albumin Globulin Albumin/Globulin Ratio Serum , Qual NEGATIVE Urine Color Yellow Urine Clarity Sl. Cloudy Urine pH 5.0 Ur Specific [place] 1.020 Urine Protein 15 H Urine Glucose (UA) 1000 H Urine Ketones Negative Urine Occult Blood 10 H Urine Nitrite Negative Urine Bilirubin Negative Urine Urobilinogen Normal Ur Leukocyte Esterase Negative Urine RBC 0-5 SEEN Urine WBC 0 SEEN Ur Squamous Epith Cells 0-5 SEEN Urine Bacteria 0 SEEN Urine Mucus 0 SEEN Acetone Level Discharge Plan Triage Chief Complaint: Hyperglycemia ED Provider: Brian Rausch Dx/Rx/DC Orders Clinical Impression: Hyperglycemia Instructions: ED Diabetic Hyperglycemia Prescriptions: No Action hydrochlorothiazide 25 MG tablet 25 mg PO DAILY RF: 0 albuterol sulfate 1 PUFF inhaler 1 - 2 puff inhalation Q4H PRN PRN (Reason: Sob &/Or Wheezing) RF: 0 losartan 100 MG tablet 100 mg PO DAILY RF: 0 ipratropium bromide 12.9 GM inhaler 2 puff inhalation DAILY PRN (Reason: Sob &/Or Wheezing) RF: 0 ondansetron 4 MG tablet 4 mg PO Q8H PRN PRN (Reason: Nausea) Qty: 5 RF: 0 escitalopram oxalate 10 MG tablet 10 mg PO DAILY RF: 0 bupropion HCl 150 MG tablet extended release 24 hr 150 mg PO DAILY RF: 0 pantoprazole 40 MG tablet,delayed release (DR/EC) 40 mg PO DAILY RF: 0 montelukast 10 MG tablet 10 mg PO DAILY RF: 0 sitagliptin 100 MG tablet 100 mg PO DAILY RF: 0 nystatin 1 APPLIC bottle 1 applic TOPICAL TID Qty: 1 RF: 0 Lantus Solostar U-100 Insulin 100 unit/mL (3 mL) insulin pen 54 unit SUBCUT QHS RF: 0 metformin 500 MG tablet 1,000 mg PO BIDCM RF: 0 Stand Alone Forms: ED Work / School Excuse Primary Care Provider: Tyson De La Fuente Referrals: Tyson De La Fuente MD [Primary Care Provider] - 3-5 Days Disposition Disposition: Home, self care
[2021-04-23] MEDS: 0.9% Normal Saline 1,000 ML 1000 ML IV (20:38)
[2021-04-23 20:44] LABS: Bacteria 0 SEEN /hpf (None Seen); Mucous, Urine 0 SEEN /hpf (<or=2+); White Blood Cells 0 SEEN /hpf (0-5)
[2021-04-23 20:45] LABS: Absolute Lymphocyte Count 2.67 X10^3/uL (0.83-4.51); Absolute Neutrophil Count 8.3 X10^3/uL (2.0-7.7); Basophil# 0.05 X10^3/uL; Basophil% 0.4 % (0-1); Eosinophil# 0.28 X10^3/uL; Eosinophils% 2.3 % (0-5); Hematocrit 42.5 % (37-47); Lymphocyte # 2.67 X10^3/ul (0.83-4.51); Lymphocyte % 21.8 % (19-41); Mean Corp Hgb Conc 32.9 g/dL (32-36); Mean Corpuscular Hgb 26.9 pg (27.0-32.0); Mean Corpuscular Volume 81.6 fL (81-99); Mean Platelet Vol. 10.4 fl (6.2-12.0); Monocyte# 0.88 X10^3/uL; Monocyte% 7.2 % (0-10); NRBC Flagged by Analyzer 0 % (0-5); Neutrophil # 8.29 X10^3/uL (2.7-7.7); Neutrophil % 67.7 % (47-70); Platelet Count 388 K/mm3 (150-450); RBC Distribution Width CV 13.9 % (11.6-14.6); RBC Distribution Width SD 40.4 fl (35.1-43.9); Red Blood Count 5.21 M/mm3 (4.2-5.4); White Blood Count 12.2 K/mm3 (4.4-11.0)
[2021-04-23 20:46] LABS: Color, Urine Yellow (Yellow); Glucose, Dipstick 1000 mg/dl (Normal); Ketone-Dipstick Negative (Negative); Leukocyte Esterase-Dipstick Negative /ul (Negative); Nitrite-Dipstick Negative (Negative); Occult Blood-Urine 10 /ul (Negative); Protein-Dipstick 15 mg/dl (Negative); Urine Bilirubin Dipstick Negative (Negative); Urine Clarity Sl. Cloudy (Clear); Urine Urobilinogen Normal (Normal)
[2021-04-23 21:01] LABS: Internal QC Validated? YES +Cl - CLEAR BKGD; Pregnancy, Serum, hCG Quali. NEGATIVE Negative
[2021-04-23 21:06] LABS: ALB/GLOB Ratio 0.9 RATIO (0.9-2.4); AST(SGOT) 21 U/L (15-37); Alanine Aminotransfer ALT/SGPT 34 U/L (13-56); Albumin, Serum 3.6 g/dL (3.2-5.0); Alkaline Phosphatase 127 U/L (45-117); Anion Gap 9 (5-15); BUN 12 mg/dL (7-18); BUN/Creat Ratio 12.2 RATIO (10-20); Calcium,Total 9.6 mg/dL (8.5-10.1); Chloride 95 mmol/L (98-107); Creatinine, Serum 0.98 mg/dL (0.55-1.02); EST Glomerular Filtration Rate 71 mL/min (>60); Est Glom Filt Rate - Afr Amer 86 mL/min (>60); Globulin 3.9 g/dL (2.2-4.2); Glucose 418 mg/dL (74-106); Protein, Total 7.5 g/dL (6.4-8.2); Sodium Level 131 mmol/L (136-145)
[2021-04-23 21:12] LABS: Red Blood Cells-Urine 0-5 SEEN /hpf (0-5); Squamous Epithelial Cells - UA 0-5 SEEN /hpf (5-10)
[2021-04-23] MEDS: Insulin Lispro 100 UNIT/ML INSULN.PEN 15 UNIT SC (21:49)
== END 2021-04-23 21:55 | disposition home or self-care (01) ==
PROVIDERS: Emergency Provider Emergency Medicine; PCP Family Medicine
DX: E11.65 Type 2 diabetes mellitus with hyperglycemia (principal); E66.9 Obesity, unspecified; J45.909 Unspecified asthma, uncomplicated; I10 Essential (primary) hypertension; Z79.4 Long term (current) use of insulin; Z79.51 Long term (current) use of inhaled steroids; Z79.899 Other long term (current) drug therapy
CPT/HCPCS: 80053; 81001; 82009; 84703; 85025; 99283; J7030